=== PATIENT | female | born 1960 | race Caucasian/White ===

== ENCOUNTER 2023-03-12 10:40 | Inpatient (IN) | payer OTHER, SELFPAY ==
[2023-03-12] VITALS (7 sets, daily range): BP systolic 122–184; BP diastolic 73–117; PULSE 128–138; RESP 16–19; TEMP 36.3–36.7; O2SAT 96–98; BMI 52.0
--- NOTE | ~2023-03-12 | XR_ITS ---
EXAMINATION: XR CHEST CLINICAL INFORMATION: Shortness of breath COMPARISON: None available. TECHNIQUE: Frontal view of the chest was obtained. FINDINGS: Central vascular congestion with mild interstitial edema. No consolidation or effusion. Mildly enlarged cardiac silhouette. XR/XR chest 1V IMPRESSION: Probable mild CHF.
--- NOTE | ~2023-03-12 | CT_ITS ---
EXAMINATION: CT HEAD WITHOUT CONTRAST CLINICAL INFORMATION: Seizure COMPARISON: None available. TECHNIQUE: Contiguous axial imaging was performed from the skull base to vertex without intravenous administration of contrast. This CT examination was performed using dose optimization techniques as appropriate, variously including the following: *Automated exposure control *Adjustment of mA and/or kV according to patient size (this includes techniques or standardized protocols for targeted exams where dose is matched to indication/reason for exam; i.e. extremities or head) *Use of iterative reconstruction technique DLP: 657 mGy-cm FINDINGS: No evidence for acute bleed or mass effect. Ventricular system appears normal in size. No cisternal abnormalities seen. There is no intraventricular blood. [place]/white matter differentiation is maintained. There are hypodense changes in periventricular and subcortical white matter consistent with chronic small vessel ischemic disease. The mastoid air cells are well aerated. Skull base unremarkable. No calvarial disruption. CT/CT head/brain wo IV con IMPRESSION: 1. No evidence for acute bleed or mass effect. 2. Changes of chronic small vessel ischemic disease of white matter.
--- NOTE | 2023-03-12 10:45 | ED_ITS ---
HPI - General Adult General Chief complaint: General Medical Stated complaint: ? Seizure Time Seen by Provider: 03/12/23 10:45 Source: patient Mode of arrival: other Limitations: no limitations History of Present Illness HPI narrative: Patient is a 63-year-old female with history of hypertension, hyperlipidemia, ep ilepsy presenting to the emergency department with daughter, we were called to the front of the emergency department stating that a female was having a seizure however we got out there patient was not seizing, daughter states patient felt like she was going to have a seizure so she brought her into the emergency department, daughter and patient reports that since last night patient has been having severe substernal chest pain that intermittently radiates to her back and radiates to her left neck region, pain is severe, constant since yesterday this is never happened to her before. Also reporting some associated shortness of breath, fatigue, malaise and myalgias. Patient denies fevers, chills, nausea, vomiting, abdominal pain, headache, vision changes, dizziness or weakness. Patient is not on a blood thinner. Related Data Allergies Allergy/AdvReac Type Severity Reaction Status Date / Time morphine Allergy Unknown rash Verified 06/18/17 00:00 No Known Allergies Allergy Unverified 05/11/20 14:59 [No Known Allergies*] Motrin Allergy Unknown stomach Uncoded 06/18/17 00:00 upset Review of Systems Review of Systems: Constitutional : No Weight loss, No Fever, No Chills, + Fatigue, + Malaise ENT/Mouth : No sore throat, No Rhinorrhea Eyes: No Eye Pain, No Swelling, No Redness Cardiovascular : + Chest Pain, + SOB, + Dyspnea on Exertion, No Orthopnea, No Edema, + Palpitations Respiratory : No Cough, No Sputum, No Wheezing Gastrointestinal : No Nausea, No Vomiting, No Diarrhea, No Constipation, No abdominal Pain, No Hematochezia, No Melena Genitourinary : No Dysuria, No Urinary Frequency, No Hematuria, Musculoskeletal : No joint pain, No Myalgias, No Joint Swelling Skin : No Skin Lesions, No rash Neuro : No Weakness, No Numbness, No Dizziness, No Headache Psych : No Anxiety/Panic, No Depression All other systems reviewed and are negative Yes all other systems are reviewed and are negative PMFSH Past Medical History Attestation statement: The following information was validated with the patient. Source: old records reviewed and nursing notes reviewed Social History Social History Smoked in Last 30 Days: Yes Use of substances other than those prescribed or required for medical reasons: No Advance Directives: No Advance Directives Information Provided: No Physical Exam ED Vital Signs: Vital Signs - 24 hr 03/12/23 10:46 03/12/23 11:20 03/12/23 11:25 Temperature 97.4 F Pulse Rate 134 H Respiratory Rate 16 Blood Pressure 184/117 H 161/97 H 141/83 H Pulse Oximetry 97 Oxygen Delivery Method Room Air 03/12/23 13:08 Temperature Pulse Rate 128 H Respiratory Rate 18 Blood Pressure 122/73 Pulse Oximetry 98 Oxygen Delivery Method Room Air BMI result Body Mass Index 54.8 tachycardia, hypertension noted Appearance: Alert.? Oriented X3.? No acute distress.? Head: Normocephalic, atraumatic, no step-offs or deformities Eyes: Pupils equal, round and reactive to light.? Neck: Normal inspection.? Neck supple.? CVS: Rapid irregularly irregular rhythm with a heart rate fluctuating between 130s to 160s..? Pulses irregular bilaterally.? Respiratory: No respiratory distress.? Breath sounds normal.? Abdomen: Soft and nontender.? Skin: Skin warm and dry.? Normal skin color.? Normal skin turgor.? Extremities: No lower extremity edema.? No calf ttp. 5/5 strength to bilateral upper and lower extremities Back: No midline tenderness, no C-spine tenderness, full range of motion, no CVA tenderness bilaterally Neuro: Oriented X 3.? No motor deficit.? No sensory deficit. CN 2-12 intact Course Reevaluation(s) Reevaluation #1: Patient's CBC appears to be within normal limits. Chemistry unremarkable. Lactic acid normal. Troponin negative, BNP 221, no history of CHF however there is some suspicion patient could be developing CHF. Age adjusted D-dimer ne gative. UA clean without infection. Patient remains in AFib with a 2-1 conduction, Cardizem given, an additional dose of Cardizem ordered at this time. Toxicology negative. Salicylates acetaminophen negative. X-ray of chest and head CT pending. Time: 12:31 Reevaluation #2: CT of head with no evidence of acute bleed or mass effect. Changes of chronic small vessel ischemic disease of white matter, no signs of acute stroke at this time. Chest x-ray with probable mild CHF, Lasix ordered as patient's BNP is elevated to 21. Plan at this time is hospital admission. Hospitalist aware who accepts admission. Time: 13:37 Reevaluation #3: Spoke to Cardiology who recommends anticoagulants and 40 of IV Lasix which was already given. Will let hospitalist know. Time: 13:59 Medications Administered Discontinued Medications Generic Name Dose Route Start Last Admin Trade Name Freq PRN Reason Stop Dose Admin Diltiazem HCl 10 mg 03/12/23 11:01 03/12/23 11:17 Diltiazem Hcl 50 Mg/10 Ml Vial IVPUSH 03/12/23 11:02 10 mg STAT STA Administration Diltiazem HCl 10 mg 03/12/23 12:29 03/12/23 13:04 Diltiazem Hcl 50 Mg/10 Ml Vial IVPUSH 03/12/23 12:30 10 mg STAT STA Administration Medical Decision Making Medical Decision Making [facility] Narrative: 1115 63-year-old female presenting with fatigue, malaise, chest pain with radiation into left side of neck and intermittently into back, also reports that she feels like she is going to have a seizure. Physical exam significant for Rapid irregularly irregular rhythm with a heart rate fluctuating between 130s to 160s..? Pulses irregular bilaterally.? Concerns for new onset atrial fibrillation versus atrial flutter. Will rule out ACS. Patient's history and physical exam also slightly suspicious for dissection. Will rule out electrolyte abnormalities and urinary tract infection. No signs of seizure-like activity at this time. No signs of status epilepticus unlikely intracranial hemorrhage or stroke. Patient not postictal, no loss of control of urine or stool, no tongue trauma unlikely that patient had a seizure. Plan at this time labs, imaging, urine. Will obtain EKG and troponin and cardiac workup. Differential Diagnosis Differential Diagnoses: The differential diagnosis associated with the presentation includes Concerns for new onset atrial fibrillation versus atrial flutter. Will rule out ACS. Patient's history and physical exam also slightly suspicious for dissection. Will rule out electrolyte abnormalities and urinary tract infection. No signs of seizure-like activity at this time. No signs of status epilepticus unlikely intracranial hemorrhage or stroke. Patient not postictal, no loss of control of urine or stool, no tongue trauma unlikely that patient had a seizure. Admission/Observation Consideration of admission/observation: Escalation of care including admission/observation considered likely Consult Healthcare Provider Management of the patient was discussed with: Order Entry Clerk (attending ) Lab Data MDM Lab Attestation statement: I reviewed the patient's lab results. 03/12/23 11:09 03/12/23 11:09 Labs: Lab Results 03/12/23 03/12/23 03/12/23 Range/Units 11:09 11:09 11:09 WBC 5.5 (4.8-10.8) X10*3/uL RBC 4.08 L (4.20-5.50) X10*6/uL Hgb 12.6 (12.0-16.0) g/dl Hct 39.3 (37.0-47.0) % MCV 96.3 (80.0-98.0) fL MCH 30.9 (27.0-33.0) pg MCHC 32.1 (31.0-35.0) g/dl RDW 14.6 (11.0-16.0) % Plt Count 142 L (160-400) X10*3/uL MPV 11.0 (9.4-12.3) fL Immature Gran % (Auto) 0.2 (0.0-0.4) % Neut % (Auto) 59.5 (45-73) % Lymph % (Auto) 29.8 (20-40) % Teller % (Auto) 8.5 (2-11) % Eos % (Auto) 1.5 (0-4) % Baso % (Auto) 0.5 (0-2) % Lymph # (Auto) 1.6 (1.2-4.9) X10*3/uL Teller # (Auto) 0.5 (0.1-1.2) X10*3/uL Eos # (Auto) 0.1 (0.0-0.4) X10*3/uL Baso # (Auto) 0.0 (0.0-0.2) X10*3/uL Abs Immat Gran (auto) 0.01 (0.00-0.03) X10*3/uL Absolute Neuts (auto) 3.3 (2.0-8.3) x10*3/uL Absolute Nucleated RBC 0.000 (0.0-0.012) X10*3/uL Nucleated RBC % (auto) 0.0 (0.0-0.2) /100WBC PT 10.7 (10.0-13.1) SEC INR 0.9 (0.9-1.1) D-Dimer High Sensitivty 261 NG/ML Sodium 144 (135-145) mmol/L Potassium 4.0 (3.3-5.1) mmol/L Chloride 110 H (96-108) mmol/L Carbon Dioxide 27 (22-29) mmol/L Anion Gap 11 L (12-20) BUN 11 (9-16) mg/dL Creatinine 0.73 (0.5-1.4) mg/dL Estim Creat Clear Calc 101.2 Estimated GFR > 60 Random Glucose 127 H (60-115) mg/dL Lactic Acid (0.5-2.0) mmol/L Calcium 8.5 (8.4-10.2) mg/dL Magnesium 2.0 (1.6-2.6) mg/dL Total Bilirubin 0.6 (0.0-1.0) mg/dL AST 15 (5-31) U/L ALT 11 (0-31) U/L Alkaline Phosphatase 187 H (39-117) U/L Total Creatine Kinase 61 (26-140) U/L Troponin I High Sens (<3.5-17.0) ng/L B-Natriuretic Peptide (<100) pg/mL Total Protein 6.9 (6.5-8.0) g/dL Albumin 3.7 (3.5-5.0) g/dL Lipase 11 (8-78) U/L Urine Color Urine Appearance Urine pH (5.0-9.0) Ur Specific Lannon (1.005-1.025) Urine Protein (Neg-Trace) mg/dL Urine Glucose (UA) (Negative) mg/dL Urine Ketones (Negative) mg/dL Urine Blood (Negative) Urine Nitrite (Negative) Ur Leukocyte Esterase (Negative) Salicylates (15-30) mg/dL Urine Opiates Screen (Not Detect) Urine Fentanyl Screen (Not Detect) Acetaminophen (<30) mcg/mL Ur Barbiturates Screen (Not Detect) Ur Phencyclidine Scrn (Not Detect) Ur Amphetamines Screen (Not Detect) U Benzodiazepines Scrn (Not Detect) Urine Cocaine Screen (Not Detect) U Marijuana (THC) Screen (Not Detect) Ethyl Alcohol < 10 mg/dL COVID-19 (ARLINE) (Negative) COVID-19 Clin Com 03/12/23 03/12/23 03/12/23 Range/Units 11:09 11:09 11:09 WBC (4.8-10.8) X10*3/uL RBC (4.20-5.50) X10*6/uL Hgb (12.0-16.0) g/dl Hct (37.0-47.0) % MCV (80.0-98.0) fL MCH (27.0-33.0) pg MCHC (31.0-35.0) g/dl RDW (11.0-16.0) % Plt Count (160-400) X10*3/uL MPV (9.4-12.3) fL Immature Gran % (Auto) (0.0-0.4) % Neut % (Auto) (45-73) % Lymph % (Auto) (20-40) % Teller % (Auto) (2-11) % Eos % (Auto) (0-4) % Baso % (Auto) (0-2) % Lymph # (Auto) (1.2-4.9) X10*3/uL Teller # (Auto) (0.1-1.2) X10*3/uL Eos # (Auto) (0.0-0.4) X10*3/uL Baso # (Auto) (0.0-0.2) X10*3/uL Abs Immat Gran (auto) (0.00-0.03) X10*3/uL Absolute Neuts (auto) (2.0-8.3) x10*3/uL Absolute Nucleated RBC (0.0-0.012) X10*3/uL Nucleated RBC % (auto) (0.0-0.2) /100WBC PT (10.0-13.1) SEC INR (0.9-1.1) D-Dimer High Sensitivty NG/ML Sodium (135-145) mmol/L Potassium (3.3-5.1) mmol/L Chloride (96-108) mmol/L Carbon Dioxide (22-29) mmol/L Anion Gap (12-20) BUN (9-16) mg/dL Creatinine (0.5-1.4) mg/dL Estim Creat Clear Calc Estimated GFR Random Glucose (60-115) mg/dL Lactic Acid (0.5-2.0) mmol/L Calcium (8.4-10.2) mg/dL Magnesium (1.6-2.6) mg/dL Total Bilirubin (0.0-1.0) mg/dL AST (5-31) U/L ALT (0-31) U/L Alkaline Phosphatase (39-117) U/L Total Creatine Kinase (26-140) U/L Troponin I High Sens 3.4 (<3.5-17.0) ng/L B-Natriuretic Peptide 221 H (<100) pg/mL Total Protein (6.5-8.0) g/dL Albumin (3.5-5.0) g/dL Lipase (8-78) U/L Urine Color Urine Appearance Urine pH (5.0-9.0) Ur Specific Lannon (1.005-1.025) Urine Protein (Neg-Trace) mg/dL Urine Glucose (UA) (Negative) mg/dL Urine Ketones (Negative) mg/dL Urine Blood (Negative) Urine Nitrite (Negative) Ur Leukocyte Esterase (Negative) Salicylates < 5.0 L (15-30) mg/dL Urine Opiates Screen (Not Detect) Urine Fentanyl Screen (Not Detect) Acetaminophen < 17 (<30) mcg/mL Ur Barbiturates Screen (Not Detect) Ur Phencyclidine Scrn (Not Detect) Ur Amphetamines Screen (Not Detect) U Benzodiazepines Scrn (Not Detect) Urine Cocaine Screen (Not Detect) U Marijuana (THC) Screen (Not Detect) Ethyl Alcohol mg/dL COVID-19 (ARLINE) (Negative) COVID-19 Clin Com 03/12/23 03/12/23 03/12/23 Range/Units 11:10 11:10 11:35 WBC (4.8-10.8) X10*3/uL RBC (4.20-5.50) X10*6/uL Hgb (12.0-16.0) g/dl Hct (37.0-47.0) % MCV (80.0-98.0) fL MCH (27.0-33.0) pg MCHC (31.0-35.0) g/dl RDW (11.0-16.0) % Plt Count (160-400) X10*3/uL MPV (9.4-12.3) fL Immature Gran % (Auto) (0.0-0.4) % Neut % (Auto) (45-73) % Lymph % (Auto) (20-40) % Teller % (Auto) (2-11) % Eos % (Auto) (0-4) % Baso % (Auto) (0-2) % Lymph # (Auto) (1.2-4.9) X10*3/uL Teller # (Auto) (0.1-1.2) X10*3/uL Eos # (Auto) (0.0-0.4) X10*3/uL Baso # (Auto) (0.0-0.2) X10*3/uL Abs Immat Gran (auto) (0.00-0.03) X10*3/uL Absolute Neuts (auto) (2.0-8.3) x10*3/uL Absolute Nucleated RBC (0.0-0.012) X10*3/uL Nucleated RBC % (auto) (0.0-0.2) /100WBC PT (10.0-13.1) SEC INR (0.9-1.1) D-Dimer High Sensitivty NG/ML Sodium (135-145) mmol/L Potassium (3.3-5.1) mmol/L Chloride (96-108) mmol/L Carbon Dioxide (22-29) mmol/L Anion Gap (12-20) BUN (9-16) mg/dL Creatinine (0.5-1.4) mg/dL Estim Creat Clear Calc Estimated GFR Random Glucose (60-115) mg/dL Lactic Acid 1.2 (0.5-2.0) mmol/L Calcium (8.4-10.2) mg/dL Magnesium (1.6-2.6) mg/dL Total Bilirubin (0.0-1.0) mg/dL AST (5-31) U/L ALT (0-31) U/L Alkaline Phosphatase (39-117) U/L Total Creatine Kinase (26-140) U/L Troponin I High Sens (<3.5-17.0) ng/L B-Natriuretic Peptide (<100) pg/mL Total Protein (6.5-8.0) g/dL Albumin (3.5-5.0) g/dL Lipase (8-78) U/L Urine Color Yellow Urine Appearance Clear Urine pH 7.0 (5.0-9.0) Ur Specific Lannon <= 1.005 (1.005-1.025) Urine Protein Negative (Neg-Trace) mg/dL Urine Glucose (UA) Negative (Negative) mg/dL Urine Ketones Negative (Negative) mg/dL Urine Blood Negative (Negative) Urine Nitrite Negative (Negative) Ur Leukocyte Esterase Negative (Negative) Salicylates (15-30) mg/dL Urine Opiates Screen (Not Detect) Urine Fentanyl Screen (Not Detect) Acetaminophen (<30) mcg/mL Ur Barbiturates Screen (Not Detect) Ur Phencyclidine Scrn (Not Detect) Ur Amphetamines Screen (Not Detect) U Benzodiazepines Scrn (Not Detect) Urine Cocaine Screen (Not Detect) U Marijuana (THC) Screen (Not Detect) Ethyl Alcohol mg/dL COVID-19 (ARLINE) Negative (Negative) COVID-19 Clin Com See Note 03/12/23 Range/Units 11:35 WBC (4.8-10.8) X10*3/uL RBC (4.20-5.50) X10*6/uL Hgb (12.0-16.0) g/dl Hct (37.0-47.0) % MCV (80.0-98.0) fL MCH (27.0-33.0) pg MCHC (31.0-35.0) g/dl RDW (11.0-16.0) % Plt Count (160-400) X10*3/uL MPV (9.4-12.3) fL Immature Gran % (Auto) (0.0-0.4) % Neut % (Auto) (45-73) % Lymph % (Auto) (20-40) % Teller % (Auto) (2-11) % Eos % (Auto) (0-4) % Baso % (Auto) (0-2) % Lymph # (Auto) (1.2-4.9) X10*3/uL Teller # (Auto) (0.1-1.2) X10*3/uL Eos # (Auto) (0.0-0.4) X10*3/uL Baso # (Auto) (0.0-0.2) X10*3/uL Abs Immat Gran (auto) (0.00-0.03) X10*3/uL Absolute Neuts (auto) (2.0-8.3) x10*3/uL Absolute Nucleated RBC (0.0-0.012) X10*3/uL Nucleated RBC % (auto) (0.0-0.2) /100WBC PT (10.0-13.1) SEC INR (0.9-1.1) D-Dimer High Sensitivty NG/ML Sodium (135-145) mmol/L Potassium (3.3-5.1) mmol/L Chloride (96-108) mmol/L Carbon Dioxide (22-29) mmol/L Anion Gap (12-20) BUN (9-16) mg/dL Creatinine (0.5-1.4) mg/dL Estim Creat Clear Calc Estimated GFR Random Glucose (60-115) mg/dL Lactic Acid (0.5-2.0) mmol/L Calcium (8.4-10.2) mg/dL Magnesium (1.6-2.6) mg/dL Total Bilirubin (0.0-1.0) mg/dL AST (5-31) U/L ALT (0-31) U/L Alkaline Phosphatase (39-117) U/L Total Creatine Kinase (26-140) U/L Troponin I High Sens (<3.5-17.0) ng/L B-Natriuretic Peptide (<100) pg/mL Total Protein (6.5-8.0) g/dL Albumin (3.5-5.0) g/dL Lipase (8-78) U/L Urine Color Urine Appearance Urine pH (5.0-9.0) Ur Specific Lannon (1.005-1.025) Urine Protein (Neg-Trace) mg/dL Urine Glucose (UA) (Negative) mg/dL Urine Ketones (Negative) mg/dL Urine Blood (Negative) Urine Nitrite (Negative) Ur Leukocyte Esterase (Negative) Salicylates (15-30) mg/dL Urine Opiates Screen Not Detected (Not Detect) Urine Fentanyl Screen Not Detected (Not Detect) Acetaminophen (<30) mcg/mL Ur Barbiturates Screen Not Detected (Not Detect) Ur Phencyclidine Scrn Not Detected (Not Detect) Ur Amphetamines Screen Not Detected (Not Detect) U Benzodiazepines Scrn Not Detected (Not Detect) Urine Cocaine Screen Not Detected (Not Detect) U Marijuana (THC) Screen Not Detected (Not Detect) Ethyl Alcohol mg/dL COVID-19 (ARLINE) (Negative) COVID-19 Clin Com Independent Interpretation I performed an independent interpretation of an: EKG (EKG with a ventricular rate of 134, showing atrial flutter with a 2-1 AV conduction, WA variable, QRS normal, QT/QTC normal. No signs of acute ischemia at this time ), Plain X-Ray and CT Scan Radiology Impression Discussion of test interpretation with radiology: I have reviewed the radiologist's reading. Chronic Conditions Patient?s care impacted by: Diabetes and Hypertension Core Measures AMI core measures followed: Yes Measure exclusions: not indicated Critical Care Time Critical Care Time Critical Care Time: Yes Total Critical Care Time: 45 Attestation: I attest to this time spent taking care of the patient, obtaining history, physical, reviewing labs, imaging, speaking to my attending Discharge Plan Discharge Clinical Impression: Atrial flutter, CHF (congestive heart failure) Patient Disposition: Admitted As Inpatient
--- NOTE | 2023-03-12 10:47 | ECG_ITS ---
Test Reason : cp Blood Pressure : / mmHG Vent. Rate : 134 BPM Atrial Rate : 268 BPM P-R Int : 000 ms QRS Dur : 082 ms QT Int : 372 ms P-R-T Axes : 240 069 -80 degrees QTc Int : 555 ms Atrial flutter with 2:1 A-V conduction Nonspecific ST abnormality Abnormal ECG When compared with ECG of 25-JUN-2017 10:09, Atrial flutter has replaced Sinus rhythm Vent. rate has increased BY [address] now depressed in Inferior leads ST now depressed in ; T wave inversion now evident in Inferior leads T wave inversion now evident in Anterior leads Referred By: Ulisses Martinez Electronically Signed By:Nathaniel Peña
[2023-03-12 11:17] LABS: Hematocrit 39.3 % (37.0-47.0); Hemoglobin 12.6 g/dl (12.0-16.0); MANUAL DIFF FLAG NO; Mean Corpuscular HGB Conc 32.1 g/dl (31.0-35.0); PLT CLUMP 1; Red Cell Distribution Width 14.6 % (11.0-16.0); SCAN SMEAR FLAG 1
[2023-03-12] MEDS: dilTIAZem HCL 50 MG/10 ML VIAL 10 MG IVPUSH ×2 (11:17→13:04)
[2023-03-12 11:18] LABS: Basophils Percent Auto 0.5 % (0-2); Eosinophils Absolute Auto 0.1 X10*3/uL (0.0-0.4); Eosinophils Percent Auto 1.5 % (0-4); Imm Gran Abs Auto 0.01 X10*3/uL (0.00-0.03); Imm Gran Pct Auto 0.2 % (0.0-0.4); Lymphocytes Absolute Auto 1.6 X10*3/uL (1.2-4.9); Lymphocytes Percent Auto 29.8 % (20-40); Mean Corpuscular Hemoglobin 30.9 pg (27.0-33.0); Mean Corpuscular Volume 96.3 fL (80.0-98.0); Monocytes Absolute Auto 0.5 X10*3/uL (0.1-1.2); Monocytes Percent Auto 8.5 % (2-11); Neutrophils Absolute Auto 3.3 x10*3/uL (2.0-8.3); Neutrophils Percent Auto 59.5 % (45-73); Platelet Count 142 X10*3/uL (160-400); Red Blood Count 4.08 X10*6/uL (4.20-5.50); White Blood Count 5.5 X10*3/uL (4.8-10.8)
[2023-03-12 11:21] LABS: INTERNATIONAL NORM RATIO 0.9 (0.9-1.1); Prothrombin Time 10.7 SEC (10.0-13.1)
[2023-03-12 11:23] LABS: D Dimer High Sensitivity 261 NG/ML
[2023-03-12 11:26] LABS: Lactic Acid 1.2 mmol/L (0.5-2.0)
[2023-03-12 11:30] LABS: COVID-19 Test Negative (Negative); IDNOW Serial# BCCEAD1C
[2023-03-12 11:32] LABS: Acetaminophen LAB < 17 mcg/mL (<30); Salicylate < 5.0 mg/dL (15-30)
[2023-03-12 11:34] LABS: Alanine Aminotransferase 11 U/L (0-31); Albumin Level 3.7 g/dL (3.5-5.0); Alkaline Phosphatase 187 U/L (39-117); Anion Gap 11 (12-20); Aspartate Amino Transferase 15 U/L (5-31); Bilirubin Total 0.6 mg/dL (0.0-1.0); Blood Urea Nitrogen 11 mg/dL (9-16); Calcium 8.5 mg/dL (8.4-10.2); Carbon Dioxide 27 mmol/L (22-29); Chloride 110 mmol/L (96-108); Creatinine Clr Calc Pharmacy 101.2; Estimated Glomerular Filt Rate > 60; Ethanol < 10 mg/dL; Glucose Random 127 mg/dL (60-115); Lipase 11 U/L (8-78); Sodium 144 mmol/L (135-145); Total Protein 6.9 g/dL (6.5-8.0)
[2023-03-12 11:36] LABS: B Type Natriuretic Peptide 221 pg/mL (<100)
[2023-03-12 11:39] LABS: Troponin-I High Sensitivity 3.4 ng/L (<3.5-17.0)
[2023-03-12 11:43] LABS: Appearance Urine Clear; Color Urine Yellow; Glucose Urine UA Negative (Negative); Leukocyte Esterase Urine Negative (Negative); Nitrite Urine Negative (Negative); Specific Gravity - Urine <= 1.005 (1.005-1.025); Urine Blood Negative (Negative); Urine Ketones Negative (Negative); Urine Protein Negative (Neg-Trace)
[2023-03-12 12:08] LABS: Amphetamine Screen Urine Not Detected (Not Detect); Barbiturates, Urine Not Detected (Not Detect); Benzodiazepines Screen Urine Not Detected (Not Detect); Cannabinoid Screen Urine Not Detected (Not Detect); Cocaine Screen Urine Not Detected (Not Detect); Fentanyl, urine Not Detected (Not Detect); Opiate Screen Urine Not Detected (Not Detect); Phencyclidine Screen Urine Not Detected (Not Detect)
[2023-03-12] MEDS: Furosemide 40 MG/4 ML VIAL IVPUSH (14:29)
[2023-03-12] MEDS: dilTIAZem HCL 125 MG in 0.9 % Sodium Chloride 100 ML 10 MG IVCONT (14:55)
--- NOTE | 2023-03-12 15:14 | PHA.MEDREC ---
Pharmacy Consult ? Medication Reconciliation Pharmacy has completed the medication reconciliation. Spoke to patient and patients daughter, both were poor historians. Patient told me she [place] pharmacy [facility] [place]. Called pharmacy and they said they have no filled anything for her in 7 months. Only recent medications was from November, which was omeprazole. I then called patients doctors office ([phone], MD Gloria Leary), they told me that they have not even spoken to this patient since october of 2021 and have not sent any scripts/refills since then. I suspect complete non compliance. Passed off to evening [facility] and made provider aware.
--- NOTE | 2023-03-12 15:17 | P.HPHOSP_ITS ---
History of Present Illness Date of Service: 03/12/23 Attending physician on admission: [facility] Chief Complaint: anxiety, chest pain 63-year-old female with history of GERD, gastritis, history of CVA, asthma, insomnia, epilepsy, who is a current 1 pack per day smoker presents to the ED with her daughter with whom she lives for evaluation of chest pain that started last night. The patient recently moved in with her daughter about 3 months ago from [place] and medical history provided by patient and daughter seems uncertain and she has not had any of her medications in the last 3 months. technology training associate is used during exam. Per the patient, she developed retrosternal chest pressure radiating to the left side of the neck and through to the back last night. Pain has been constant with associated shortness of breath, fatigue, malaise, and orthopnea but she states the orthopnea is not new. She does also endorse longstanding lower extremity edema. She has also been experiencing anxiety and when brought to the ED while still in the car this morning felt like she was going to have a seizure but did not actually have any seizure episode. On arrival, heart rate elevated into the 160s, hypertensive to 184/117. EKG showed atrial flutter with 2-1 AV conduction, rate [address] abnormality in inferior and anterior leads. There is no leukocytosis. Renal function normal, electrolyte levels normal. Lactic acid 1.2. Total CK 61. Troponin 3.4. BNP 221. D-dimer 261, appropriate based on age. Urinalysis unremarkable. U tox negative, ethyl alcohol level negative. Negative for COVID-19. CT of the head negative for any acute intracranial abnormality. Chest x-ray with mild bilateral pulmonary edema, no pleural effusions. In the ED, given 10 mg IV push Cardizem x2 without improvement and patient started on Cardizem drip. She was also given 40 mg IV Lasix. At this time pt reports she is still experiencing mild retrosternal chest pain and lightheadedness but denies any radiation or shortness of breath. No diaphoresis. Review of Systems Review of Systems: General: No fevers, malaise, unintentional weight loss. +malaise, +fatigue HEENT: No blurred vision, diplopia. No sore throat, nasal congestion, rhinorrhea, sinus pain, ear pain Cardiovascular: +palpitations, No chest pain, palpitations, or leg edema Respiratory: +sob, +orthopnea. No wheezing, cough GI: No abdominal pain, nausea, vomiting, diarrhea, constipation, melena, hemato chezia : No dysuria, hematuria, increased urinary frequency, decreased urinary output MSK: No myalgia, back pain Neuro: No headaches, weakness, paresthesias. + lightheaded Skin: No rashes or lesions [facility] Medical History Gastritis GERD (gastroesophageal reflux disease) History of stroke Morbid obesity Nicotine dependence Seizure disorder Social History Household Members: Family Housing: Apartment Patient Tobacco Use Status: Current everyday Tobacco user Tobacco use type: Cigarette Cigarette Packs Per Day: 0.5 Cigarettes Per Day: 10.0 Smoked in Last 30 Days: Yes Patient Interested in Nicotine Replacement: Yes Use of substances other than those prescribed or required for medical reasons: No Currently Displaying Signs/Symptoms of Drug Intoxication Withdrawal: No Have you been hit, kicked, punched, or otherwise hurt by someone within the past year? If so, by whom?: No Do you feel safe in your current relationship?: No Current Relationship Is there a partner from a previous relationship who is making you feel unsafe no w?: No Are you made to feel afraid or neglected: No Advance Directives: No Advance Directives Information Provided: No Do you have thoughts of harming others: None Do you have a plan to hurt others: No Plan Recently lost weight without trying: No Nutrition Risks: No Nutritional Risk Patient : No : No Poor oral hygiene: No Meds Allergies Allergy/AdvReac Type Severity Reaction Status Date / Time morphine Allergy Unknown rash Verified 06/18/17 00:00 No Known Allergies Allergy Unverified 05/11/20 14:59 [No Known Allergies*] Motrin Allergy Unknown stomach Uncoded 06/18/17 00:00 upset Active Medications: Current Medications Acetaminophen (Acetaminophen 325 Mg Tablet) 650 mg PO Q6H PRN PRN Reason: Pain, Mild (Pain Scale 1-3) Docusate Sodium (Docusate Sodium 100 Mg Capsule) 100 mg PO DAILY PRN PRN Reason: Constipation Heparin Sodium (Porcine) (Heparin Sodium,Porcine 5,000 Unit/Ml Vial) 4,000 unit IVPUSH ONCE ONE Stop: 03/12/23 15:08 Diltiazem HCl 125 mg/ Sodium (Chloride) 125 mls @ 0 mls/hr IVCONT .Q0M [facility]; Protocol Last Admin: 03/12/23 14:55 Dose: 10 mg/hr, 10 mls/hr Ondansetron HCl (Ondansetron Hcl 4 Mg/2 Ml Vial) 4 mg IVPUSH Q8H PRN PRN Reason: Nausea and Vomiting Pharmacy Consult (Consult Rx Perform Med Rec) 1 each MISCELLANE ONCE PRN PRN Reason: Consult order Sodium Chloride (0.9 % Sodium Chloride Flush 3 Ml Syringe) 3 ml IVFLUSH QSHIFT [facility] Home Medications Medication Instructions Recorded Confirmed Last Taken Type albuterol sulfate 90 mcg/actuation 2 puff inhalation Q6H PRN 03/12/23 03/12/23 Unknown History aerosol inhaler (ProAir HFA) Shortness Of Breath omeprazole 20 mg capsule,delayed 20 mg PO DAILY 03/12/23 03/12/23 Unknown History release phenytoin sodium extended 100 mg 100 mg PO TID 03/12/23 03/12/23 Unknown History capsule (Dilantin Extended) propranolol 120 mg capsule,24 120 mg PO DAILY 03/12/23 03/12/23 Unknown History hr,extended release quetiapine 100 mg tablet 100 mg PO DAILY 03/12/23 03/12/23 Unknown History topiramate 50 mg tablet 50 mg PO DAILY 03/12/23 03/12/23 Unknown History Physical Exam Vital Signs and Narrative: Vital Signs: Last Vital Signs Temp 97.4 F 03/12/23 10:46 Pulse 133 H 03/12/23 14:00 Resp 17 03/12/23 14:00 BP 155/94 H 03/12/23 14:00 Pulse Ox 96 03/12/23 14:00 O2 Del Method Room Air 03/12/23 14:00 BMI result Body Mass Index 54.8 Constitutional - Awake and Alert, No apparent distress Eyes - PERRLA, EOMI Cardiovascular - S1S2, RRR, 1+ ble edema Respiratory - Normal lung expansion, Normal respiratory effort, No respiratory distress,orthopnea, bibasilar crackles Gastrointestinal - NT / ND; +BS; No rebound or guarding Extremities - no calf tenderness bilaterally, no swelling Musculoskeletal - Normal inspection, normal ROM Skin - Warm/Dry Neurological - Alert & oriented x3 Results Labs 03/12/23 11:09 03/12/23 11:09 Labs: Laboratory Results - last 24 hr 03/12/23 03/12/23 03/12/23 11:09 11:09 11:09 MCV 96.3 MCH 30.9 MCHC 32.1 RDW 14.6 Plt Count 142 L MPV 11.0 Immature Gran % (Auto) 0.2 Neut % (Auto) 59.5 Lymph % (Auto) 29.8 [place] % (Auto) 8.5 Eos % (Auto) 1.5 Baso % (Auto) 0.5 Lymph # (Auto) 1.6 [place] # (Auto) 0.5 Eos # (Auto) 0.1 Baso # (Auto) 0.0 Abs Immat Gran (auto) 0.01 Absolute Neuts (auto) 3.3 Absolute Nucleated RBC 0.000 Nucleated RBC % (auto) 0.0 PT 10.7 INR 0.9 D-Dimer High Sensitivty 261 Anion Gap 11 L Estim Creat Clear Calc 101.2 Estimated GFR > 60 Random Glucose 127 H Lactic Acid Calcium 8.5 Magnesium 2.0 Total Bilirubin 0.6 AST 15 ALT 11 Alkaline Phosphatase 187 H Total Creatine Kinase 61 Troponin I High Sens B-Natriuretic Peptide Total Protein 6.9 Albumin 3.7 Lipase 11 Urine Color Urine Appearance Urine pH Ur Specific [place] Urine Protein Urine Glucose (UA) Urine Ketones Urine Blood Urine Nitrite Ur Leukocyte Esterase Salicylates Urine Opiates Screen Urine Fentanyl Screen Acetaminophen Ur Barbiturates Screen Ur Phencyclidine Scrn Ur Amphetamines Screen U Benzodiazepines Scrn Urine Cocaine Screen U Marijuana (THC) Screen Ethyl Alcohol < 10 COVID-19 (ARLINE) COVID-19 Clin Com 03/12/23 03/12/23 03/12/23 11:09 11:09 11:09 MCV MCH MCHC RDW Plt Count MPV Immature Gran % (Auto) Neut % (Auto) Lymph % (Auto) [place] % (Auto) Eos % (Auto) Baso % (Auto) Lymph # (Auto) [place] # (Auto) Eos # (Auto) Baso # (Auto) Abs Immat Gran (auto) Absolute Neuts (auto) Absolute Nucleated RBC Nucleated RBC % (auto) PT INR D-Dimer High Sensitivty Anion Gap Estim Creat Clear Calc Estimated GFR Random Glucose Lactic Acid Calcium Magnesium Total Bilirubin AST ALT Alkaline Phosphatase Total Creatine Kinase Troponin I High Sens 3.4 B-Natriuretic Peptide 221 H Total Protein Albumin Lipase Urine Color Urine Appearance Urine pH Ur Specific [place] Urine Protein Urine Glucose (UA) Urine Ketones Urine Blood Urine Nitrite Ur Leukocyte Esterase Salicylates < 5.0 L Urine Opiates Screen Urine Fentanyl Screen Acetaminophen < 17 Ur Barbiturates Screen Ur Phencyclidine Scrn Ur Amphetamines Screen U Benzodiazepines Scrn Urine Cocaine Screen U Marijuana (THC) Screen Ethyl Alcohol COVID-19 (ARLINE) COVID-19 efectivox Com 03/12/23 03/12/23 03/12/23 11:10 11:10 11:35 MCV MCH MCHC RDW Plt Count MPV Immature Gran % (Auto) Neut % (Auto) Lymph % (Auto) [place] % (Auto) Eos % (Auto) Baso % (Auto) Lymph # (Auto) [place] # (Auto) Eos # (Auto) Baso # (Auto) Abs Immat Gran (auto) Absolute Neuts (auto) Absolute Nucleated RBC Nucleated RBC % (auto) PT INR D-Dimer High Sensitivty Anion Gap Estim Creat Clear Calc Estimated GFR Random Glucose Lactic Acid 1.2 Calcium Magnesium Total Bilirubin AST ALT Alkaline Phosphatase Total Creatine Kinase Troponin I High Sens B-Natriuretic Peptide Total Protein Albumin Lipase Urine Color Yellow Urine Appearance Clear Urine pH 7.0 Ur Specific [place] <= 1.005 Urine Protein Negative Urine Glucose (UA) Negative Urine Ketones Negative Urine Blood Negative Urine Nitrite Negative Ur Leukocyte Esterase Negative Salicylates Urine Opiates Screen Urine Fentanyl Screen Acetaminophen Ur Barbiturates Screen Ur Phencyclidine Scrn Ur Amphetamines Screen U Benzodiazepines Scrn Urine Cocaine Screen U Marijuana (THC) Screen Ethyl Alcohol COVID-19 (ARLINE) Negative COVID-19 efectivox Com See Note 03/12/23 11:35 MCV MCH MCHC RDW Plt Count MPV Immature Gran % (Auto) Neut % (Auto) Lymph % (Auto) [place] % (Auto) Eos % (Auto) Baso % (Auto) Lymph # (Auto) [place] # (Auto) Eos # (Auto) Baso # (Auto) Abs Immat Gran (auto) Absolute Neuts (auto) Absolute Nucleated RBC Nucleated RBC % (auto) PT INR D-Dimer High Sensitivty Anion Gap Estim Creat Clear Calc Estimated GFR Random Glucose Lactic Acid Calcium Magnesium Total Bilirubin AST ALT Alkaline Phosphatase Total Creatine Kinase Troponin I High Sens B-Natriuretic Peptide Total Protein Albumin Lipase Urine Color Urine Appearance Urine pH Ur Specific [place] Urine Protein Urine Glucose (UA) Urine Ketones Urine Blood Urine Nitrite Ur Leukocyte Esterase Salicylates Urine Opiates Screen Not Detected Urine Fentanyl Screen Not Detected Acetaminophen Ur Barbiturates Screen Not Detected Ur Phencyclidine Scrn Not Detected Ur Amphetamines Screen Not Detected U Benzodiazepines Scrn Not Detected Urine Cocaine Screen Not Detected U Marijuana (THC) Screen Not Detected Ethyl Alcohol COVID-19 (ARLINE) COVID-19 Clin Com Imaging Radiologist's Impressions: Impressions Chest X-Ray 03/12/23 11:19 IMPRESSION: Probable mild CHF. Head CT 03/12/23 12:01 IMPRESSION: 1. No evidence for acute bleed or mass effect. 2. Changes of chronic small vessel ischemic disease of white matter. Assessment and Plan (1) Atrial flutter: Status: Acute (2) CHF (congestive heart failure): Status: Acute (3) Chest pain: Status: Acute Plan 63-year-old female with history of GERD, gastritis, history of CVA, asthma, insomnia, epilepsy, who is a current 1 pack per day smoker admitted for new ons et atrial flutter and congestive heart failure. # new onset atrial flutter with RVR -continue Cardizem drip -[id number] score 5 (denies htn, but hypertensive since arrival)- initiate heparin per cardiology -Echo ordered -TSH pending, lytes normal -cardiac diet -cardiology consult -monitor on telemetry # new onset congestive heart failure -likely secondary to atrial flutter -given 40 mg IV Lasix in the ED, hold on further IV Lasix -strict I&O -cardiac diet -echo ordered -cardiology consult # typical chest pain -unclear if related to atrial flutter with RVR versus unstable angina -troponin within normal limits -EKG with nonspecific ST/T-wave abnormalities in anterior and inferior leads -initiate heparin per protocol per Cardiology -cardiology consult # GERD/gastritis -continue omeprazole # mild intermittent asthma -no acute exacerbation -albuterol p.r.n. # epilepsy -has not taken anti-epileptics in 3 months due to move to [place] without seizure activity -Resume phenytoin 100mg TID and topamax # cigarette smoker -smokes 1 pack cigarettes daily -patches for NRT -smoking cessation counseling DVT prophylaxis- on heparin Full code Patient requires inpatient stay at least 2 midnights for management of new onset atrial flutter with RVR and new onset congestive heart failure currently on Cardizem drip requiring close cardiac monitoring and monitoring of renal function electrolyte levels with expert consultation Time Spent With Patient Time: Total time managing care of this patient today ____ minutes. Quality Stroke Does the patient have a stroke diagnosis?: No VTE Prior VTE?: No VTE Risk Level:: Medical - moderate - high VTE Device Contraindication: Treatment Not Indicated VTE Drug Contraindication: N/A - Med Ordered
[2023-03-12 16:06] LABS: TSH reflex Free T4 1.16 uIU/mL (0.32-4.0)
--- NOTE | 2023-03-12 17:00 | HE.PHANOTE ---
Spoke to pt's daughter, Leyla who was able to give a med list, daughter states that pt has not taken her seizure meds for roughly 2 months. She has also been unable to taker her others meds for over a month
--- NOTE | 2023-03-12 18:02 | PC.NURSE ---
pt a&o x4, pleasant, calm, and cooperative. burmese speaking only. IV placed to RAC, labs drawn, UA sent, EKG obtained. pt placed on monitor and medicated per oct. commode at bedside.
[2023-03-12] MEDS: Nicotine 21 MG PATCH.TD24 TRANSDERMA (18:24)
--- NOTE | 2023-03-12 19:15 | PC.NURSE ---
report recieved from ED RN at 1820, pt up to floor at 1850. Cardizem gtt running per OCT. Pt settled in room, assisted to BSC with 1 assist. Pt RAZO. Call castillo within reach, safety precautions maintained. Handoff report given to evening RN.
[2023-03-12] MEDS: Digoxin 0.5 MG/2 ML AMPUL 0.25 MG IVPUSH (19:54)
[2023-03-12 20:12] LABS: Hematocrit 40.5 % (37.0-47.0); Hemoglobin 13.1 g/dl (12.0-16.0); Mean Corpuscular HGB Conc 32.3 g/dl (31.0-35.0); Mean Corpuscular Hemoglobin 31.5 pg (27.0-33.0); Mean Corpuscular Volume 97.4 fL (80.0-98.0); Mean Platelet Volume 11.1 fL (9.4-12.3); Platelet Count 144 X10*3/uL (160-400); Red Blood Count 4.16 X10*6/uL (4.20-5.50); Red Cell Distribution Width 14.7 % (11.0-16.0); White Blood Count 7.8 X10*3/uL (4.8-10.8)
[2023-03-12 20:20] LABS: Prothrombin Time 11.1 SEC (10.0-13.1)
[2023-03-12 20:23] LABS: PTT Heparin Drip 31.9 SEC (53-77.9)
[2023-03-12] MEDS: Heparin Sodium,Porcine/1/2NS 25,000 UNIT/250 ML IV.SOLN 17.49 UNIT IVCONT (20:30)
[2023-03-12] MEDS: QUEtiapine Fumarate 100 MG TABLET PO (20:51)
[2023-03-12] MEDS: Phenytoin Sodium Extended 100 MG CAPSULE PO (20:51)
[2023-03-13] VITALS (8 sets, daily range): BP systolic 109–137; BP diastolic 58–78; PULSE 65–138; RESP 15–20; TEMP 36.1–36.9; O2SAT 94–96
[2023-03-13] MEDS: dilTIAZem HCL 125 MG in 0.9 % Sodium Chloride 100 ML 15 MG IVCONT (00:04)
[2023-03-13] MEDS: Digoxin 0.5 MG/2 ML AMPUL 0.25 MG IVPUSH (02:14)
[2023-03-13 03:08] LABS: PTT Heparin Drip 151.7 SEC (53-77.9)
[2023-03-13 04:27] LABS: PTT Heparin Drip 84.3 SEC (53-77.9)
[2023-03-13] MEDS: Omeprazole 20 MG CAPSULE.DR PO (05:41)
[2023-03-13 07:10] LABS: MANUAL DIFF FLAG NO
[2023-03-13 07:18] LABS: Basophils Percent Auto 0.5 % (0-2); Eosinophils Absolute Auto 0.1 X10*3/uL (0.0-0.4); Hematocrit 37.4 % (37.0-47.0); Hemoglobin 12.1 g/dl (12.0-16.0); Imm Gran Abs Auto 0.02 X10*3/uL (0.00-0.03); Imm Gran Pct Auto 0.4 % (0.0-0.4); Lymphocytes Absolute Auto 2.3 X10*3/uL (1.2-4.9); Lymphocytes Percent Auto 40.6 % (20-40); Mean Corpuscular HGB Conc 32.4 g/dl (31.0-35.0); Mean Corpuscular Hemoglobin 31.1 pg (27.0-33.0); Mean Corpuscular Volume 96.1 fL (80.0-98.0); Mean Platelet Volume 11.2 fL (9.4-12.3); Monocytes Absolute Auto 0.6 X10*3/uL (0.1-1.2); Monocytes Percent Auto 10.1 % (2-11); Neutrophils Absolute Auto 2.6 x10*3/uL (2.0-8.3); Neutrophils Percent Auto 46.4 % (45-73); Platelet Count 126 X10*3/uL (160-400); Prothrombin Time 11.9 SEC (10.0-13.1); Red Blood Count 3.89 X10*6/uL (4.20-5.50); Red Cell Distribution Width 14.4 % (11.0-16.0); White Blood Count 5.6 X10*3/uL (4.8-10.8)
[2023-03-13 07:24] LABS: Anion Gap 9 (12-20); Blood Urea Nitrogen 8 mg/dL (9-16); Calcium 8.6 mg/dL (8.4-10.2); Carbon Dioxide 30 mmol/L (22-29); Chloride 108 mmol/L (96-108); Creatinine Clr Calc Pharmacy 108.3; Estimated Glomerular Filt Rate > 60; Glucose Random 97 mg/dL (60-115); Potassium 3.8 mmol/L (3.3-5.1); Sodium 143 mmol/L (135-145)
[2023-03-13 07:32] LABS: B Type Natriuretic Peptide 265 pg/mL (<100)
[2023-03-13] MEDS: Topiramate 25 MG TABLET 50 MG PO (08:56)
[2023-03-13] MEDS: Phenytoin Sodium Extended 100 MG CAPSULE PO ×3 (08:56→20:42)
[2023-03-13] MEDS: Nicotine 21 MG PATCH.TD24 TRANSDERMA (08:56)
[2023-03-13] MEDS: dilTIAZem HCL 125 MG in 0.9 % Sodium Chloride 100 ML IVCONT (08:57)
--- NOTE | 2023-03-13 08:58 | HO.PM.IMPN ---
Subjective Subjective Date of Service: 03/13/23 Interval History: f/u on chest pain, new afib with rvr, remains in af with rvr no sob, no ches pain Physical Exam Vital Signs: Vital Signs: Last Vital Signs Temp 97.3 F 03/13/23 07:25 Pulse 138 H 03/13/23 07:25 Resp 20 03/13/23 07:25 BP 130/74 03/13/23 07:25 Pulse Ox 94 03/13/23 07:25 O2 Del Method Room Air 03/13/23 07:25 BMI result Body Mass Index 52.0 Const: Other: General: AO X 3, no acute distress Resp: CTA bilateral CVS: S1,S2, iregular iregular , no leg edema GI: +BS, NT, no distention Skin: No rash Neuro: motor grossly intact Psych: appropriate affect Objective Data Active Medications Acetaminophen (Acetaminophen 325 Mg Tablet) 650 mg PO Q6H PRN PRN Reason: Pain, Mild (Pain Scale 1-3) Albuterol Sulfate (Albuterol Sulfate 90 Mcg 8 Gm Inhaler) 2 puff INHALE Q6H PRN PRN Reason: Shortness Of Breath Docusate Sodium (Docusate Sodium 100 Mg Capsule) 100 mg PO DAILY PRN PRN Reason: Constipation Heparin Sodium (Porcine) (Heparin Sodium,Porcine 5,000 Unit/Ml Vial) 5,000 unit 40 unit/kg (5000 unit) IVPUSH PROTOCOL BOLUS PRN; Protocol PRN Reason: 40 unit/kg - Heparin Protocol Heparin Sodium (Porcine) (Heparin Sodium,Porcine 5,000 Unit/Ml Vial) 10,000 unit 80 unit/kg (77649 unit) IVPUSH PROTOCOL BOLUS PRN; Protocol PRN Reason: 80 unit/kg - Heparin Protocol Diltiazem HCl 125 mg/ Sodium (Chloride) 125 mls @ 0 mls/hr IVCONT .Q0M [facility]; Protocol Last Admin: 03/13/23 08:57 Dose: 5 mg/hr, 5 mls/hr Documented By: VANIA Heparin Sodium/Sodium Chloride (Heparin Sodium,Porcine/1/2ns) 25,000 unit in 250 mls @ 0 mls/hr IVCONT .Q0M PR[facility]I; Protocol Last Titration: 03/13/23 04:36 Dose: 10 units/kg/hr, 12.49 mls/hr Documented By: JAVIER Co-signed By: PRISCILA Nicotine (Nicotine 21 Mg Patch.Td24) 21 mg TRANSDERMA DAILY [facility] Last Admin: 03/13/23 08:56 Dose: 21 mg Documented By: VANIA Omeprazole (Omeprazole 20 Mg Capsule.Dr) 20 mg PO DAILY@0630 [facility] Last Admin: 03/13/23 05:41 Dose: 20 mg Documented By: JAVIER Ondansetron HCl (Ondansetron Hcl 4 Mg/2 Ml Vial) 4 mg IVPUSH Q8H PRN PRN Reason: Nausea and Vomiting Pharmacy Consult (Consult Rx Perform Med Rec) 1 each MISCELLANE ONCE PRN PRN Reason: Consult order Phenytoin Sodium (Phenytoin Sodium Extended 100 Mg Capsule) 100 mg PO TID [facility] Last Admin: 03/13/23 08:56 Dose: 100 mg Documented By: VANIA Quetiapine Fumarate (Quetiapine Fumarate 100 Mg Tablet) 100 mg PO BEDTIME [facility] Last Admin: 03/12/23 20:51 Dose: 100 mg Documented By: CEE Sodium Chloride (0.9 % Sodium Chloride Flush 3 Ml Syringe) 3 ml IVFLUSH QSHIFT [facility] Last Admin: 03/13/23 07:55 Dose: Not Given Documented By: VANIA Non-Admin Reason: See Note Topiramate (Topiramate 25 Mg Tablet) 50 mg PO DAILY [facility] Last Admin: 03/13/23 08:56 Dose: 50 mg Documented By: VANIA Labs 03/13/23 07:05 03/13/23 07:05 Labs: Laboratory Results - last 24 hr 03/12/23 03/12/23 03/12/23 11:09 11:09 11:09 MCV 96.3 MCH 30.9 MCHC 32.1 RDW 14.6 Plt Count 142 L MPV 11.0 Immature Gran % (Auto) 0.2 Neut % (Auto) 59.5 Lymph % (Auto) 29.8 Smith % (Auto) 8.5 Eos % (Auto) 1.5 Baso % (Auto) 0.5 Lymph # (Auto) 1.6 Smith # (Auto) 0.5 Eos # (Auto) 0.1 Baso # (Auto) 0.0 Abs Immat Gran (auto) 0.01 Absolute Neuts (auto) 3.3 Absolute Nucleated RBC 0.000 Nucleated RBC % (auto) 0.0 PT 10.7 INR 0.9 aPTT Heparin Protocol D-Dimer High Sensitivty 261 Anion Gap 11 L Estim Creat Clear Calc 101.2 Estimated GFR > 60 Random Glucose 127 H Lactic Acid Calcium 8.5 Magnesium 2.0 Total Bilirubin 0.6 AST 15 ALT 11 Alkaline Phosphatase 187 H Total Creatine Kinase 61 Troponin I High Sens B-Natriuretic Peptide Total Protein 6.9 Albumin 3.7 Lipase 11 TSH 1.16 Urine Color Urine Appearance Urine pH Ur Specific Lloyd Urine Protein Urine Glucose (UA) Urine Ketones Urine Blood Urine Nitrite Ur Leukocyte Esterase Salicylates Urine Opiates Screen Urine Fentanyl Screen Acetaminophen Ur Barbiturates Screen Ur Phencyclidine Scrn Ur Amphetamines Screen U Benzodiazepines Scrn Urine Cocaine Screen U Marijuana (THC) Screen Ethyl Alcohol < 10 COVID-19 (ARLINE) COVID-19 [facility]. Com 03/12/23 03/12/23 03/12/23 11:09 11:09 11:09 MCV MCH MCHC RDW Plt Count MPV Immature Gran % (Auto) Neut % (Auto) Lymph % (Auto) Smith % (Auto) Eos % (Auto) Baso % (Auto) Lymph # (Auto) Smith # (Auto) Eos # (Auto) Baso # (Auto) Abs Immat Gran (auto) Absolute Neuts (auto) Absolute Nucleated RBC Nucleated RBC % (auto) PT INR aPTT Heparin Protocol D-Dimer High Sensitivty Anion Gap Estim Creat Clear Calc Estimated GFR Random Glucose Lactic Acid Calcium Magnesium Total Bilirubin AST ALT Alkaline Phosphatase Total Creatine Kinase Troponin I High Sens 3.4 B-Natriuretic Peptide 221 H Total Protein Albumin Lipase TSH Urine Color Urine Appearance Urine pH Ur Specific Lloyd Urine Protein Urine Glucose (UA) Urine Ketones Urine Blood Urine Nitrite Ur Leukocyte Esterase Salicylates < 5.0 L Urine Opiates Screen Urine Fentanyl Screen Acetaminophen < 17 Ur Barbiturates Screen Ur Phencyclidine Scrn Ur Amphetamines Screen U Benzodiazepines Scrn Urine Cocaine Screen U Marijuana (THC) Screen Ethyl Alcohol COVID-19 (ARLINE) COVID-19 [facility]. Com 03/12/23 03/12/23 03/12/23 11:10 11:10 11:35 MCV MCH MCHC RDW Plt Count MPV Immature Gran % (Auto) Neut % (Auto) Lymph % (Auto) Smith % (Auto) Eos % (Auto) Baso % (Auto) Lymph # (Auto) Smith # (Auto) Eos # (Auto) Baso # (Auto) Abs Immat Gran (auto) Absolute Neuts (auto) Absolute Nucleated RBC Nucleated RBC % (auto) PT INR aPTT Heparin Protocol D-Dimer High Sensitivty Anion Gap Estim Creat Clear Calc Estimated GFR Random Glucose Lactic Acid 1.2 Calcium Magnesium Total Bilirubin AST ALT Alkaline Phosphatase Total Creatine Kinase Troponin I High Sens B-Natriuretic Peptide Total Protein Albumin Lipase TSH Urine Color Yellow Urine Appearance Clear Urine pH 7.0 Ur Specific Lloyd <= 1.005 Urine Protein Negative Urine Glucose (UA) Negative Urine Ketones Negative Urine Blood Negative Urine Nitrite Negative Ur Leukocyte Esterase Negative Salicylates Urine Opiates Screen Urine Fentanyl Screen Acetaminophen Ur Barbiturates Screen Ur Phencyclidine Scrn Ur Amphetamines Screen U Benzodiazepines Scrn Urine Cocaine Screen U Marijuana (THC) Screen Ethyl Alcohol COVID-19 (ARLINE) Negative COVID-19 [facility]. Com See Note 03/12/23 03/12/23 03/12/23 11:35 20:03 20:03 MCV 97.4 MCH 31.5 MCHC 32.3 RDW 14.7 Plt Count 144 L MPV 11.1 Immature Gran % (Auto) Neut % (Auto) Lymph % (Auto) Smith % (Auto) Eos % (Auto) Baso % (Auto) Lymph # (Auto) Smith # (Auto) Eos # (Auto) Baso # (Auto) Abs Immat Gran (auto) Absolute Neuts (auto) Absolute Nucleated RBC 0.000 Nucleated RBC % (auto) 0.0 PT 11.1 INR 1.0 aPTT Heparin Protocol 31.9 L D-Dimer High Sensitivty Anion Gap Estim Creat Clear Calc Estimated GFR Random Glucose Lactic Acid Calcium Magnesium Total Bilirubin AST ALT Alkaline Phosphatase Total Creatine Kinase Troponin I High Sens B-Natriuretic Peptide Total Protein Albumin Lipase TSH Urine Color Urine Appearance Urine pH Ur Specific Lloyd Urine Protein Urine Glucose (UA) Urine Ketones Urine Blood Urine Nitrite Ur Leukocyte Esterase Salicylates Urine Opiates Screen Not Detected Urine Fentanyl Screen Not Detected Acetaminophen Ur Barbiturates Screen Not Detected Ur Phencyclidine Scrn Not Detected Ur Amphetamines Screen Not Detected U Benzodiazepines Scrn Not Detected Urine Cocaine Screen Not Detected U Marijuana (THC) Screen Not Detected Ethyl Alcohol COVID-19 (ARLINE) COVID-19 Clin Com 03/13/23 03/13/23 03/13/23 02:28 04:09 07:05 MCV 96.1 MCH 31.1 MCHC 32.4 RDW 14.4 Plt Count 126 L MPV 11.2 Immature Gran % (Auto) 0.4 Neut % (Auto) 46.4 Lymph % (Auto) 40.6 H Smith % (Auto) 10.1 Eos % (Auto) 2.0 Baso % (Auto) 0.5 Lymph # (Auto) 2.3 Smith # (Auto) 0.6 Eos # (Auto) 0.1 Baso # (Auto) 0.0 Abs Immat Gran (auto) 0.02 Absolute Neuts (auto) 2.6 Absolute Nucleated RBC 0.000 Nucleated RBC % (auto) 0.0 PT INR aPTT Heparin Protocol 151.7 H* D 84.3 H D D-Dimer High Sensitivty Anion Gap Estim Creat Clear Calc Estimated GFR Random Glucose Lactic Acid Calcium Magnesium Total Bilirubin AST ALT Alkaline Phosphatase Total Creatine Kinase Troponin I High Sens B-Natriuretic Peptide Total Protein Albumin Lipase TSH Urine Color Urine Appearance Urine pH Ur Specific Lloyd Urine Protein Urine Glucose (UA) Urine Ketones Urine Blood Urine Nitrite Ur Leukocyte Esterase Salicylates Urine Opiates Screen Urine Fentanyl Screen Acetaminophen Ur Barbiturates Screen Ur Phencyclidine Scrn Ur Amphetamines Screen U Benzodiazepines Scrn Urine Cocaine Screen U Marijuana (THC) Screen Ethyl Alcohol COVID-19 (ARLINE) COVID-19 Crush on original products 03/13/23 03/13/23 03/13/23 07:05 07:05 07:05 MCV MCH MCHC RDW Plt Count MPV Immature Gran % (Auto) Neut % (Auto) Lymph % (Auto) Smith % (Auto) Eos % (Auto) Baso % (Auto) Lymph # (Auto) Smith # (Auto) Eos # (Auto) Baso # (Auto) Abs Immat Gran (auto) Absolute Neuts (auto) Absolute Nucleated RBC Nucleated RBC % (auto) PT 11.9 INR 1.0 aPTT Heparin Protocol D-Dimer High Sensitivty Anion Gap 9 L Estim Creat Clear Calc 108.3 Estimated GFR > 60 Random Glucose 97 Lactic Acid Calcium 8.6 Magnesium Total Bilirubin AST ALT Alkaline Phosphatase Total Creatine Kinase Troponin I High Sens B-Natriuretic Peptide 265 H Total Protein Albumin Lipase TSH Urine Color Urine Appearance Urine pH Ur Specific Lloyd Urine Protein Urine Glucose (UA) Urine Ketones Urine Blood Urine Nitrite Ur Leukocyte Esterase Salicylates Urine Opiates Screen Urine Fentanyl Screen Acetaminophen Ur Barbiturates Screen Ur Phencyclidine Scrn Ur Amphetamines Screen U Benzodiazepines Scrn Urine Cocaine Screen U Marijuana (THC) Screen Ethyl Alcohol COVID-19 (ARLINE) COVID-19 Clin Com Assessment and Plan (1) Atrial flutter: Status: Acute (2) CHF (congestive heart failure): Status: Acute (3) Chest pain: Status: Acute Plan 63-year-old female with history of GERD, gastritis, history of CVA, asthma, insomnia, epilepsy, who is a current 1 pack per day smoker admitted for new onset atrial flutter and congestive heart failure. # new onset atrial flutter with RVR, persistent tachycardia on IV, add metoprolol PO, consider dig, anticoagulation with heparin, awaiting cardiology eval. Echo today # new onset congestive heart failure d/t AFIB, got Lasix in ED, echo to further assess, # chest pain, negative treate, likely related to afib, been treated as ACS for now, # GERD/gastritis -continue omeprazole # mild intermittent asthma -no acute exacerbation -albuterol p.r.n. # epilepsy -has not taken anti-epileptics in 3 months due to move to [place] without seizure activity -Resume phenytoin 100mg TID and topamax # cigarette smoker -smokes 1 pack cigarettes daily -patches for NRT -smoking cessation counseling DVT prophylaxis- on heparin Full code need for inptz: new afib with RVR, need IV med to control heart rate Time Spent With Patient Time: Total time managing care of this patient today ____ minutes. Quality Stroke Does the patient have a stroke diagnosis?: No VTE Prior VTE?: No VTE Risk Level:: Medical - moderate - high VTE Device Contraindication: Treatment Not Indicated VTE Drug Contraindication: N/A - Med Ordered
[2023-03-13] MEDS: Acetaminophen 325 MG TABLET 650 MG PO (09:00)
[2023-03-13] MEDS: Metoprolol Tartrate 25 MG TABLET PO ×3 (09:28→20:42)
--- NOTE | 2023-03-13 09:44 | MHC.CM.PN ---
Addendum entered by Deja Berry 03/13/23 09:51: Pt gave permission for us to speak with her daughter Leyla for further information and stated she wants her to be the HCP. Original Note: IMM 03/13. Pt admitted with aflutter RVR, CHF. Pt SSO, she lives at home with her daughter Leyla [phone]. D/C plan pending further eval, but pt would like to return home with her daughter, possibly with new VNA. Pts daughter will transport her home. Assistance offered to make a HCP, Leyla is on her way to visit and will help fill one out with her mom today. Pt does not have a PCP since she is new to the area, a list of local PCP's will be given to pt. Pts daughter Leyla also shared that her mother has been stressed because Leyla has only 30 days left in their apartment, and then needs to find a new residence and has not been successful. 413 family resource guide will be given to pt and daughter when she arrives.
[2023-03-13 11:00] LABS: PTT Heparin Drip 107.4 SEC (53-77.9)
--- NOTE | 2023-03-13 15:17 | PM.CNCAR ---
History of Present Illness History of Present Illness Date of Service: 03/13/23 Requesting physician: Kaushik Marquesnyu [facility] Chief complaint: aflutter rvr, chf Narrative: 63-year-old female who is presenting with chest pain, dyspnea and palpitations. She was noticed to have atrial flutter. Chest x-ray showed mild congestive heart failure. She has mild elevation of troponin. She was given IV Lasix and was started on Cardizem drip. She also received digoxin load overnight. She is still in atrial flutter right now and heart rate appear to be well controlled. She is denying any palpitations. She is laying flat and has no dyspnea. Denying chest discomfort. She says the chest discomfort was more like a fluttering sensation in the chest. No bleeding issues in the past. [facility] Past Medical History Medical History Gastritis GERD (gastroesophageal reflux disease) History of stroke Morbid obesity Nicotine dependence Seizure disorder Social History Social History Household Members: Family Housing: Apartment Patient Tobacco Use Status: Current everyday Tobacco user Tobacco use type: Cigarette Cigarette Packs Per Day: 0.5 Cigarettes Per Day: 10.0 Smoked in Last 30 Days: Yes Patient Interested in Nicotine Replacement: Yes Use of substances other than those prescribed or required for medical reasons: No Currently Displaying Signs/Symptoms of Drug Intoxication Withdrawal: No Have you been hit, kicked, punched, or otherwise hurt by someone within the past year? If so, by whom?: No Do you feel safe in your current relationship?: No Current Relationship Is there a partner from a previous relationship who is making you feel unsafe now?: No Are you made to feel afraid or neglected: No Advance Directives: No Advance Directives Information Provided: No Do you have thoughts of harming others: None Do you have a plan to hurt others: No Plan Recently lost weight without trying: No Nutrition Risks: No Nutritional Risk Patient : No : No Poor oral hygiene: No service: No Meds Allergies Allergy/AdvReac Type Severity Reaction Status Date / Time morphine Allergy Unknown rash Verified 06/18/17 00:00 No Known Allergies Allergy Unverified 05/11/20 14:59 [No Known Allergies*] Motrin Allergy Unknown stomach Uncoded 10/25/17 00:00 upset Active Medications: Current Medications Acetaminophen (Acetaminophen 325 Mg Tablet) 650 mg PO Q6H PRN PRN Reason: Pain, Mild (Pain Scale 1-3) Last Admin: 03/13/23 09:00 Dose: 650 mg Albuterol Sulfate (Albuterol Sulfate 90 Mcg 8 Gm Inhaler) 2 puff INHALE Q6H PRN PRN Reason: Shortness Of Breath Docusate Sodium (Docusate Sodium 100 Mg Capsule) 100 mg PO DAILY PRN PRN Reason: Constipation Heparin Sodium (Porcine) (Heparin Sodium,Porcine 5,000 Unit/Ml Vial) 5,000 unit 40 unit/kg (5000 unit) IVPUSH PROTOCOL BOLUS PRN; Protocol PRN Reason: 40 unit/kg - Heparin Protocol Heparin Sodium (Porcine) (Heparin Sodium,Porcine 5,000 Unit/Ml Vial) 10,000 unit 80 unit/kg (56909 unit) IVPUSH PROTOCOL BOLUS PRN; Protocol PRN Reason: 80 unit/kg - Heparin Protocol Diltiazem HCl 125 mg/ Sodium (Chloride) 125 mls @ 0 mls/hr IVCONT .Q0M [facility]; Protocol Last Titration: 03/13/23 10:19 Dose: 0 mg/hr, 0 mls/hr Heparin Sodium/Sodium Chloride (Heparin Sodium,Porcine/1/2ns) 25,000 unit in 250 mls @ 0 mls/hr IVCONT .Q0M [facility]; Protocol Last Titration: 03/13/23 12:05 Dose: 7 units/kg/hr, 8.74 mls/hr Metoprolol Tartrate (Metoprolol Tartrate 25 Mg Tablet) 25 mg PO Q6H [facility]; Protocol Last Admin: 03/13/23 14:07 Dose: 25 mg Nicotine (Nicotine 21 Mg Patch.Td24) 21 mg TRANSDERMA DAILY [facility] Last Admin: 03/13/23 08:56 Dose: 21 mg Omeprazole (Omeprazole 20 Mg Capsule.Dr) 20 mg PO DAILY@0630 [facility] Last Admin: 03/13/23 05:41 Dose: 20 mg Ondansetron HCl (Ondansetron Hcl 4 Mg/2 Ml Vial) 4 mg IVPUSH Q8H PRN PRN Reason: Nausea and Vomiting Pharmacy Consult (Consult Rx Perform Med Rec) 1 each MISCELLANE ONCE PRN PRN Reason: Consult order Phenytoin Sodium (Phenytoin Sodium Extended 100 Mg Capsule) 100 mg PO TID [facility] Last Admin: 03/13/23 14:07 Dose: 100 mg Quetiapine Fumarate (Quetiapine Fumarate 100 Mg Tablet) 100 mg PO BEDTIME [facility] Last Admin: 03/12/23 20:51 Dose: 100 mg Sodium Chloride (0.9 % Sodium Chloride Flush 3 Ml Syringe) 3 ml IVFLUSH QSHIFT [facility] Last Admin: 03/13/23 13:21 Dose: Not Given Topiramate (Topiramate 25 Mg Tablet) 50 mg PO DAILY [facility] Last Admin: 03/13/23 08:56 Dose: 50 mg Home Medications Medication Instructions Recorded Confirmed Last Taken Type albuterol sulfate 90 mcg/actuation 2 puff inhalation Q6H PRN 03/12/23 03/12/23 Unknown History aerosol inhaler (ProAir HFA) Shortness Of Breath omeprazole 20 mg capsule,delayed 20 mg PO DAILY 03/12/23 03/12/23 Unknown History release phenytoin sodium extended 100 mg 100 mg PO TID 03/12/23 03/12/23 Unknown History capsule (Dilantin Extended) propranolol 120 mg capsule,24 120 mg PO DAILY 03/12/23 03/12/23 Unknown History hr,extended release quetiapine 100 mg tablet 100 mg PO DAILY 03/12/23 03/12/23 Unknown History topiramate 50 mg tablet 50 mg PO DAILY 03/12/23 03/12/23 Unknown History Physical Exam Vital Signs: Vital Signs: Last Vital Signs Temp 98.4 F 03/13/23 14:56 Pulse 96 03/13/23 14:56 Resp 19 03/13/23 14:56 BP 137/72 03/13/23 14:56 Pulse Ox 95 03/13/23 14:56 O2 Del Method Room Air 03/13/23 14:56 BMI result Body Mass Index 52.0 GENERAL APPEARANCE: in no acute distress, pleasant. Morbidly obese. NECK: no carotid bruit, no jugular venous distention. SKIN: no suspicious lesions, warm and dry. HEART: no murmurs, regular rate and rhythm. LUNGS: clear to auscultation bilaterally. ABDOMEN: soft, nontender. EXTREMITIES: no edema. PERIPHERAL PULSES: equal. NEUROLOGIC: No gross deficits, AAO X 3 Objective Labs and Meds 03/13/23 07:05 07/20/23 07:05 Lab results: Laboratory Results - last 24 hr 03/12/23 03/12/23 03/12/23 11:09 20:03 20:03 WBC 7.8 RBC 4.16 L Hgb 13.1 Hct 40.5 MCV 97.4 MCH 31.5 MCHC 32.3 RDW 14.7 Plt Count 144 L MPV 11.1 Immature Gran % (Auto) Neut % (Auto) Lymph % (Auto) Dickenson % (Auto) Eos % (Auto) Baso % (Auto) Lymph # (Auto) Dickenson # (Auto) Eos # (Auto) Baso # (Auto) Abs Immat Gran (auto) Absolute Neuts (auto) Absolute Nucleated RBC 0.000 Nucleated RBC % (auto) 0.0 PT 11.1 INR 1.0 aPTT Heparin Protocol 31.9 L Sodium Potassium Chloride Carbon Dioxide Anion Gap BUN Creatinine Estim Creat Clear Calc Estimated GFR Random Glucose Calcium B-Natriuretic Peptide TSH 1.16 03/13/23 03/13/23 03/13/23 02:28 04:09 07:05 WBC 5.6 RBC 3.89 L Hgb 12.1 Hct 37.4 MCV 96.1 MCH 31.1 MCHC 32.4 RDW 14.4 Plt Count 126 L MPV 11.2 Immature Gran % (Auto) 0.4 Neut % (Auto) 46.4 Lymph % (Auto) 40.6 H Dickenson % (Auto) 10.1 Eos % (Auto) 2.0 Baso % (Auto) 0.5 Lymph # (Auto) 2.3 Dickenson # (Auto) 0.6 Eos # (Auto) 0.1 Baso # (Auto) 0.0 Abs Immat Gran (auto) 0.02 Absolute Neuts (auto) 2.6 Absolute Nucleated RBC 0.000 Nucleated RBC % (auto) 0.0 PT INR aPTT Heparin Protocol 151.7 H* D 84.3 H D Sodium Potassium Chloride Carbon Dioxide Anion Gap BUN Creatinine Estim Creat Clear Calc Estimated GFR Random Glucose Calcium B-Natriuretic Peptide TSH 03/13/23 03/13/23 03/13/23 07:05 07:05 07:05 WBC RBC Hgb Hct MCV MCH MCHC RDW Plt Count MPV Immature Gran % (Auto) Neut % (Auto) Lymph % (Auto) Dickenson % (Auto) Eos % (Auto) Baso % (Auto) Lymph # (Auto) Dickenson # (Auto) Eos # (Auto) Baso # (Auto) Abs Immat Gran (auto) Absolute Neuts (auto) Absolute Nucleated RBC Nucleated RBC % (auto) PT 11.9 INR 1.0 aPTT Heparin Protocol Sodium 143 Potassium 3.8 Chloride 108 Carbon Dioxide 30 H Anion Gap 9 L BUN 8 L Creatinine 0.66 Estim Creat Clear Calc 108.3 Estimated GFR > 60 Random Glucose 97 Calcium 8.6 B-Natriuretic Peptide 265 H TSH 03/13/23 10:33 WBC RBC Hgb Hct MCV MCH MCHC RDW Plt Count MPV Immature Gran % (Auto) Neut % (Auto) Lymph % (Auto) Dickenson % (Auto) Eos % (Auto) Baso % (Auto) Lymph # (Auto) Dickenson # (Auto) Eos # (Auto) Baso # (Auto) Abs Immat Gran (auto) Absolute Neuts (auto) Absolute Nucleated RBC Nucleated RBC % (auto) PT INR aPTT Heparin Protocol 107.4 H* D Sodium Potassium Chloride Carbon Dioxide Anion Gap BUN Creatinine Estim Creat Clear Calc Estimated GFR Random Glucose Calcium B-Natriuretic Peptide TSH Assessment and Plan (1) Atrial flutter: Status: Acute (2) CHF (congestive heart failure): Status: Acute (3) Chest pain: Status: Acute Plan 63-year-old female presenting for atrial flutter and mild congestive heart failure. She is describing mostly palpitations and no clear chest discomfort. She is rate controlled currently. She was given 40 mg IV Lasix. Will do echocardiography. Started on apixaban 5 mg twice a day. Change metoprolol to 75 mg of Toprol-XL. Digoxin 125 mcg p.o. every 48 hours. Stop the Cardizem. Thank you for allowing me to participate in the care of your patient. Please feel free to contact me if you have any questions. Time Spent With Patient Time: Total time managing care of this patient today ____ minutes. Procedures Date of Service Date of Service: 03/13/23
[2023-03-13 19:01] LABS: PTT Heparin Drip 61.3 SEC (53-77.9)
[2023-03-13] MEDS: Heparin Sodium,Porcine/1/2NS 25,000 UNIT/250 ML IV.SOLN 8.74 UNIT IVCONT (19:26)
[2023-03-13] MEDS: QUEtiapine Fumarate 100 MG TABLET PO (20:42)
[2023-03-14 00:48] LABS: PTT Heparin Drip 67.2 SEC (53-77.9)
[2023-03-14] MEDS: 0.9 % Sodium Chloride Flush 3 ML SYRINGE IVFLUSH ×3 (01:43→14:45)
[2023-03-14] MEDS: Metoprolol Tartrate 25 MG TABLET PO ×2 (03:04→09:16)
[2023-03-14 03:54] VITALS: BP 109/52; PULSE 88; RESP 18; TEMP 36.2; O2SAT 98
[2023-03-14] MEDS: Omeprazole 20 MG CAPSULE.DR PO (06:09)
[2023-03-14 07:00] LABS: PTT Heparin Drip 78.8 SEC (53-77.9)
--- NOTE | 2023-03-14 07:00 | CA_ITS ---
Transthoracic Echocardiogram Patient (Last, First, Middle): Annetta Hernandez, Gender: Female Date of : 1960 Age: 63 Procedure Date: 03/14/2023 Procedure Type: Transthoracic Echocardiogram Location: [facility] Height: 154.94 cm Weight: 124.74 kg BSA: 2.16 m2 Heart Rate: 86 bpm BP: 120 / 80 mmHg Power Manager: MANUEL Referring MD: Kaushki Darling MD Symptoms: afib Study Quality: Adequate w contrast ECG Rhythm: Atrial flutter Conclusions: - Normal right ventricular cavity size. There is borderline right ventricular systolic function. - There is mild dilatation of the ascending aorta measuring 3.40 cm. Findings Procedure Information Contrast agent, definity, is being given per protocol without apparent complications. Left Ventricle Normal left ventricular size, thickness, and systolic function. The visually estimated ejection fraction is between 55-60%. There is no evidence of regional wall motion abnormalities. Diastolic function is indeterminate on the basis of available data. Right Ventricle Normal right ventricular cavity size. There is borderline right ventricular systolic function. Atria The left atrium is normal in size. The right atrium is normal in size. Aortic Valve Normal aortic valve structure and function. There is no aortic valve stenosis. There is no aortic valve regurgitation. Mitral Valve Likely normal mitral valve structure and function. There is no mitral valve regurgitation. There is no mitral valve stenosis. Pulmonic Valve The pulmonic valve was not well visualized. Tricuspid Valve Normal tricuspid valve structure. There is no tricuspid valve regurgitation. Normal right atrial pressure. There is no evidence of pulmonary hypertension. Great Vessels There is mild dilatation of the ascending aorta measuring 3.40 cm. The visualized portions of the pulmonary artery and branches are normal. Venous The inferior vena cava is normal in size and collapses greater than 50% with inspiration. Pericardium/Pleural There is no evidence of pericardial effusion. Prior Study Comparison No prior study available for comparison. Measurements 2D Linear Measurements IVSd: 1.25 0.6-0.9/0.6-1.0 cm LVIDd: 4.57 3.9-5.3/4.2-5.9 cm LVIDd Index: 2.12 2.4-3.2/2.2-3.1 cm/m2 LVIDs: 3.71 2.0-3.6 cm LVPWd: 0.81 0.7-1.1 cm LA Diam: 4.00 2.7-3.8/3.0-4.0 cm LAIDs Index: 1.85 1.5-2.3 cm/m2 LV Mass: 203.97 67-162/88-224 g LV Mass Index: 94.43 43-95/49-115 g/m2 LVOT Diam: 2.20 3.0+(-)1.3 cm 2D Systolic Function EF 4C: 43.90 >55% EF 2C: 47.20 >55% EF BiP: 48.40 >55% Mitral Valve MV Pk E: 1.11 E'Lateral: 9.00 E'Medial: 7.59 E/E' Med: 14.60 E/E' Lat: 12.30 Aortic Valve AoV Pk Silverio: 1.06 AoV Pk Grad: 4.00 PREMA: 3.15 LVOT LVOT Pk Silverio: 0.88 LVOT Mn Silverio: 0.63 LVOT VTI: 0.16 LVOT Pk Grad: 3.00 LVOT Mn Grad: 2.00 LVOT Diam: 2.20 LVOT Area: 3.80 Diastolic Function MV Pk E: 1.11 E'Medial: 7.59 E/E' Med: 14.60 E' Laterial: 9.00 E/E' Lat: 12.30 Right Ventricle TAPSE (mm): 18.00 TVS' Silverio: 10.10 Tricuspid Valve TR Pk Silverio: 1.92 TR Pk Grad: 15.00 RA Press: 3.00 RVSP: 18.00 Great Vessels Aorta Sinus of Valsalva: 3.00 2.0-3.5 cm Ao Asc: 3.40 2.1-3.4 cm Pulmonary Valve PV Pk Silverio: 0.84 Peak PV Grad: 3.00 Updated in Other Vendor System with Status of Final Nathaniel Peña MD electronically signed on 03/14/2023 3:51:14 PM with status of Final
[2023-03-14 07:21] VITALS: BP 120/80; PULSE 94; RESP 20; TEMP 36.1; O2SAT 98
[2023-03-14] MEDS: ondansetron HCL 4 MG/2 ML VIAL IVPUSH (09:15)
[2023-03-14] MEDS: Nicotine 21 MG PATCH.TD24 TRANSDERMA (09:15)
[2023-03-14] MEDS: Metoprolol Succinate ER 25 MG TAB.ER.24H 75 MG PO (09:16)
[2023-03-14] MEDS: Phenytoin Sodium Extended 100 MG CAPSULE PO ×2 (09:16→14:45)
[2023-03-14] MEDS: Topiramate 25 MG TABLET 50 MG PO (09:16)
[2023-03-14] MEDS: Apixaban 5 MG TABLET PO (09:27)
--- NOTE | 2023-03-14 09:29 | P.DS_ITS ---
DS: Providers Provider Date of Service: 03/14/23 Date of admission: 03/12/23 15:07 Primary care physician: Jostin Suggs DO Consults: 03/12/23 15:07 Consult to Cardiology Routine Consulting Provider: [facility] [place] [facility] Reason for consultation: aflutter rvr, chf DS: Diagnosis Discharge Diagnosis (1) Atrial flutter: Status: Acute (2) CHF (congestive heart failure): Status: Acute (3) Chest pain: Status: Acute DS: Summary Hospital Course Hospital Course: Chief Complaint: anxiety, chest pain 63-year-old female with history of GERD, gastritis, history of CVA, asthma, insomnia, epilepsy, who is a current 1 pack per day smoker presents to the ED with her daughter with whom she lives for evaluation of chest pain that started last night.? The patient recently moved in with her daughter about 3 months ago from [place] and medical history provided by patient and daughter seems uncertain and she has not had any of her medications in the last 3 months.? hematology nurse educator is used during exam.? Per the patient, she developed retrosternal chest pressure radiating to the left side of the neck and through to the back last night.? Pain has been constant with associated shortness of breath, fatigue, malaise, and orthopnea but she states the orthopnea is not new.? She does also endorse longstanding lower extremity edema.? She has also been experiencing anxiety and when brought to the ED while still in the car this morning felt like she was going to have a seizure but did not actually have any seizure episode. On arrival, heart rate elevated into the 160s, hypertensive to 184/117.? EKG showed atrial flutter with 2-1 AV conduction, rate [address] abnormality in inferior and anterior leads.? There is no leukocytosis.? Renal function normal, electrolyte levels normal.? Lactic acid 1.2.? Total CK 61.? Troponin 3.4.? BNP 221.? D-dimer 261, appropriate based on age.? Urinalysis unremarkable.? U tox negative, ethyl alcohol level negative.? Negative for COVID-19.? CT of the head negative for any acute intracranial abnormality.? Chest x-ray with mild bilateral pulmonary edema, no pleural effusions.? In the ED, given 10 mg IV push Cardizem x2 without improvement and patient started on Cardizem drip.? She was also given 40 mg IV Lasix. At this time pt reports she is still experiencing mild retrosternal chest pain and lightheadedness but denies any radiation or shortness of breath.? No diaphoresis. Hospital course: Patient presented with chest pain and found to be in AFIB with RVR, ACS work up was negative with troponin level and no ecg evidence of acute ischemic event, she was on heparin for anticoagulation. AFIB with RVR was treated with IV cardizem and later transitioned to metoprolol 25 q6, Heart rate is in 80s to 90s now, cardiology has been following and recommends Toprolol 75 mg at dischare, along with digoxin 0. 125 mg every other day. Elquis 5 mg bid for anticoagulation and stroke prevention. Her chest pain has resolved. Advised to excercise, avoid high caloric food and loose weight. To follow up with Dr Loya in the office and may need cardioversion in the future final diagnosis afib with rvr chest pain morbid obesity Time Spent with Patient Time attestation: Total time managing care of this patient today ____ minutes. Discharge coordination time: Greater than 30 minutes Quality: Safe Use of Opioids Does Pt have an Active Cancer Diagnosis on the Problem List?: No Quality: Stroke Does the patient have a stroke diagnosis?: No Physical Exam Vital Signs: Vital Signs: Last Vital Signs Temp 96.9 F 03/14/23 07:21 Pulse 94 03/14/23 07:21 Resp 20 03/14/23 07:21 BP 120/80 03/14/23 07:21 Pulse Ox 98 03/14/23 07:21 O2 Del Method Room Air 03/14/23 07:21 BMI result Body Mass Index 52.0 Const: Other: General: AO X 3, no acute distress Resp: CTA bilateral CVS: S1,S2, iregular iregular GI: +BS, NT, no distention Skin: No rash Neuro: motor grossly intact Psych: appropriate affect DS: Data Data Completed and Pending Labs on day of discharge: Laboratory Results - last 24 hr 03/13/23 03/13/23 03/14/23 10:33 18:21 00:28 aPTT Heparin Protocol 107.4 H* D 61.3 D 67.2 03/14/23 06:16 aPTT Heparin Protocol 78.8 H Preliminary micro results at discharge 03/12/23 11:16 Blood Culture - Preliminary Blood - Venous No growth after 24 hours. 03/12/23 11:08 Blood Culture - Preliminary Blood - Venous No growth after 24 hours. Discharge Plan Discharge Anticipated Discharge Date/Time: 03/14/23 09:26 Patient Disposition: Home, Self-Care Discharge Diagnosis: AFIB with RVR Referrals: Jostin Suggs, [Primary Care Provider] - 1 Week Discharge Medications: New Eliquis 5 mg Tablet 5 mg PO BID Qty: 60 0RF metoprolol succinate 25 mg Tablet Extended Release 24 Hr 75 mg PO DAILY Qty: 30 0RF Protocol: Hold for SBP/HR < HOLD for SBP < : 90 HOLD for HR < : 60 Continued omeprazole [Prilosec] 20 mg Capsule,Delayed Release(Dr/Ec) 20 mg PO DAILY phenytoin sodium extended [Dilantin Extended] 100 mg Capsule 100 mg PO TID quetiapine 100 mg Tablet 100 mg PO DAILY propranolol 120 mg Capsule,Extended Release 24 Hr 120 mg PO DAILY topiramate 50 mg Tablet 50 mg PO DAILY albuterol sulfate [ProAir HFA] 90 mcg/actuation Hfa Aerosol Inhaler 2 puff INHALATION Q6H PRN (Reason: Shortness Of Breath) Discharge Orders: Discharge Order (Routine); Ordered 03/14/23 Ordered By: Kaushik Darling Diet: Advance to usual diet Activity on Discharge: As tolerated Stand Alone Forms: Patient Portal Discharge page Care Plan Goals: control of atrial fibrilation and prevent stroke Health Concerns: afib, obesity Plan of Treatment: take Toprol (metoprolol) as recommended take eliquis to thin your blood and prevent stroke follow up wtih your primary care provider follow up with DR. loya (heart doctor) Assessment: see above
--- NOTE | 2023-03-14 09:56 | MHC.CM.PN ---
Addendum entered by Kelsey Reyes RN 03/14/23 15:38: CM [facility] HAS ATTEMPTED TO CONTACT [facility] AND CANNOT GET PT APPT UNIT APR/JUN W/ANY [facility] PROVIDER, MESSAGE LEFT W/[facility] AND THEY WERE GIVEN PT'S DTR WILLIAM'S CONTACT INFO TO FOLLOW UP W/A NEW PT APPT. Original Note: PT MEDICALLY CLEARED FOR D/C HOME, NO SERVICES ORDERED, DTR FOR TRANSPORT
[2023-03-14] MEDS: Digoxin 0.125 MG TABLET PO (10:44)
[2023-03-14 11:21] VITALS: BP 131/74; PULSE 79; RESP 20; TEMP 36.4; O2SAT 98
--- NOTE | 2023-03-14 12:42 | PM.PNCARD ---
Subjective Subjective Date of Service: 03/14/23 Interval history: Feeling good. HR control is ok. In atrial flutter. Physical Exam Vital Signs: Last Vital Signs Temp 97.5 F 03/14/23 11:21 Pulse 79 03/14/23 11:21 Resp 20 03/14/23 11:21 BP 131/74 03/14/23 11:21 Pulse Ox 98 03/14/23 11:21 O2 Del Method Room Air 03/14/23 11:21 BMI result Body Mass Index 52.0 GENERAL APPEARANCE: in no acute distress, pleasant. Morbidly obese. NECK: no carotid bruit, no jugular venous distention. SKIN: no suspicious lesions, warm and dry. HEART: no murmurs, regular rate and rhythm. LUNGS: clear to auscultation bilaterally. ABDOMEN: soft, nontender. EXTREMITIES: no edema. PERIPHERAL PULSES: equal. NEUROLOGIC: No gross deficits, AAO X 3 Objective Labs and Meds 03/13/23 07:05 03/13/23 07:05 Lab results: Laboratory Results - last 24 hr 03/13/23 03/14/23 03/14/23 18:21 00:28 06:16 aPTT Heparin Protocol 61.3 D 67.2 78.8 H Progress Note: A&P Assessment and plan (1) Atrial flutter: Status: Acute (2) CHF (congestive heart failure): Status: Acute Plan 63 female with palpitations due to atrial flutter and mild CHF. She has non anginal CP. Diuresed. On toprol and digoxin. Increase Toprol to 100 mg daily and c/w digoxin q 48 hours. c/w. Apixaban. We will do cardioversion as outpatient. Time Spent With Patient Time: Total time managing care of this patient today ____ minutes. Progress Note: Quality Stroke Does the patient have a stroke diagnosis?: No Procedures Date of Service Date of Service: 03/14/23
[2023-03-14 13:33] LABS: PTT Heparin Drip 37.1 SEC (53-77.9)
== END 2023-03-14 15:50 | disposition home or self-care (01) | DRG 194 ==
LOC: HO.ED 13:26 → HO.EDOVER 15:23 → HO.IMC 17:29
PROVIDERS: Physician Assistant; Student in an Organized Health Care Education/Training Program; Admitting Provider Physician Assistant; Emergency Provider Emergency Medicine; PCP Family Medicine; Visit Provider Internal Medicine
DX: I11.0 Hypertensive heart disease with heart failure (principal); I48.92 Unspecified atrial flutter; Z79.01 Long term (current) use of anticoagulants; I50.9 Heart failure, unspecified; E66.01 Morbid (severe) obesity due to excess calories; Z91.148 Patient's other noncompliance with medication regimen for other reason; Z68.43 Body mass index [BMI] 50.0-59.9, adult; J45.20 Mild intermittent asthma, uncomplicated; F17.210 Nicotine dependence, cigarettes, uncomplicated; Z20.822 Contact with and (suspected) exposure to COVID-19; Z71.6 Tobacco abuse counseling; Z86.73 Personal history of transient ischemic attack (TIA), and cerebral infarction without residual deficits; Z79.899 Other long term (current) drug therapy
CPT/HCPCS: 36415; 70450; 71045; 80048; 80053; 80143; 80179; 80307; 81003; 82550; 83605; 83690; 83735; 83880; 84443; 84484; 85025; 85027; 85379; 85610; 85730; 87040; 87635; 93005; 93306; 99285; J1160; J1643; J1940; J2405; Q9957

== ENCOUNTER 2023-03-12 15:07 | Outpatient (BNV) | payer OTHER, SELFPAY | END 2023-03-14 07:00 | PROVIDERS: Admitting Provider Physician Assistant; Emergency Provider Emergency Medicine; PCP Family Medicine; Visit Provider Internal Medicine Cardiovascular Disease | DX: I48.92 Unspecified atrial flutter (principal) | CPT/HCPCS: 93306 ==

== ENCOUNTER → 2023-03-12 15:07 | Outpatient (BNV) | payer OTHER, SELFPAY | PROVIDERS: Admitting Provider Physician Assistant; Emergency Provider Emergency Medicine; PCP Family Medicine; Visit Provider Physician Assistant | DX: I48.92 Unspecified atrial flutter (principal); I50.9 Heart failure, unspecified; R07.9 Chest pain, unspecified | CPT/HCPCS: 99223; 99233; 99239 ==

== ENCOUNTER → 2023-03-12 15:07 | Outpatient (BNV) | payer OTHER, SELFPAY | PROVIDERS: Admitting Provider Physician Assistant; Emergency Provider Emergency Medicine; PCP Family Medicine; Visit Provider Internal Medicine Cardiovascular Disease | DX: I48.92 Unspecified atrial flutter (principal); I50.9 Heart failure, unspecified | CPT/HCPCS: 93010; 99223; 99232 ==

== ENCOUNTER 2023-04-14 15:34 | Outpatient (AMB) | payer OTHER, SELFPAY ==
[2023-04-14 15:41] VITALS: BP 142/86; PULSE 75; BMI 50.4
--- NOTE | 2023-04-14 15:41 | MHC.OFFVIS ---
Intake Vital Signs 04/14/23 15:41 Height 5 ft 1 in Weight 266 lb 12.149 oz BMI 50.4 BP 142/86 H Blood Pressure Location Lt brachial Position Sitting Pulse 75 Pulse Source Monitor Intake Visit Reasons: follow up Intake Note: Follow up with EKG. Decorative Cutting Machine Tender Required: Yes Decorative Cutting Machine Tender Language: Rn Maternal Child Name: Jennifer Guerra Accompanied by: Grand Child Allergies morphine Allergy (Unknown, Verified 04/14/23 15:45) rash Motrin Allergy (Unknown, Uncoded 04/14/23 15:45) stomach upset Medication List - Last Reconciled 04/14/23 by Nathaniel Peña MD albuterol sulfate 90 mcg/actuation (ProAir HFA) 2 puffs inhalation Q6H PRN apixaban (Eliquis) 5 mg PO BID digoxin 0.125 mg PO Q2D metoprolol succinate ER (Toprol XL) 100 mg PO DAILY omeprazole 20 mg PO DAILY phenytoin sodium extended (Dilantin Extended) 100 mg PO TID propranolol ER 120 mg PO DAILY quetiapine 100 mg PO DAILY topiramate 50 mg PO DAILY HPI HPI Comments History of Present Illness Details Pleasant 63-year-old female who was seen in the hospital for atrial flutter and mild congestive heart failure. Echocardiography showed borderline RV dysfunction but left ventricular function and wall motion was normal. She was started on apixaban, Toprol-XL 100 mg and digoxin every other day. After rate control she was discharged back home. Our plan was to do outpatient cardioversion. Today she returns for follow-up. EKG in the office showing sinus rhythm. She is denying any palpitations or chest discomfort. Blood pressure control is okay. She is taking digoxin, Toprol-XL 100 mg daily and was previously on propanolol extended release 120 mg daily which was also continued at discharge from hospital. She takes propranolol for migraine headaches. No bleeding concerns. [facility], [facility] Medical History (Updated 03/22/23 @ 00:02 by Bharat Greenwood) Gastritis GERD (gastroesophageal reflux disease) History of stroke Morbid obesity Nicotine dependence Seizure disorder Surgical History (Updated 04/14/23 @ 15:46 by PARISH Magana) History of cholecystectomy History of hernia surgery History of tubal ligation Social History (Updated 04/14/23 @ 15:46 by PARISH Magana) Household Members: Family Housing: Apartment Alcohol intake: never Patient Tobacco Use Status: Former Tobacco user Quit Date: 2022 Cigarette Packs Per Day: 0.5 Years Smoked: 25 +/- service: No Review of Systems Const Denies weakness ENT Denies dizziness Card Denies chest pain, Denies chest pain with activity, Denies syncope, Denies rapid heart rate, Denies pedal edema, Denies edema, Denies leg edema, Denies lightheadedness, Denies palpitations, Denies dyspnea, Denies dyspnea on exertion and Denies orthopnea Resp Denies cough, Denies dyspnea and Denies dyspnea on exertion GI Denies hematochezia and Denies change in stool character Musc Denies abnormal gait, Denies muscle cramps, Denies muscle weakness, Denies numbness, Denies radiating pain into limb and Denies tingling Neuro Denies abnormal gait, Denies dizziness, Denies syncope, Denies numbness, Denies tingling and Denies weakness Endo Denies palpitations Physical Exam Vital Signs: Last Vital Signs Pulse 75 04/14/23 15:41 BP 142/86 H 04/14/23 15:41 BMI result Body Mass Index 50.4 GENERAL APPEARANCE: in no acute distress, pleasant. Morbidly obese. NECK: no carotid bruit, no jugular venous distention. SKIN: no suspicious lesions, warm and dry. HEART: no murmurs, regular rate and rhythm. LUNGS: clear to auscultation bilaterally. ABDOMEN: soft, nontender. EXTREMITIES: no edema. PERIPHERAL PULSES: equal. NEUROLOGIC: No gross deficits, AAO X 3 Office Procedures EKG Details: Sinus rhythm with heart rate 75 beats per minute, normal axis, QTC 460 milliseconds. [id number], Complete Assessment & Plan Assessment & Plan (1) Atrial flutter: Code(s): I48.92 - Unspecified atrial flutter Plan Pleasant 3-year-old female who is here for follow-up. She has background of atrial flutter and mild congestive heart failure. She was seen in the hospital and was treated with rate control strategy but on follow-up in the office she is back in sinus rhythm. She is on apixaban for anticoagulation. Interestingly she is taking phenytoin also which has interaction with apixaban and being and enzyme inducer phenytoin can lead to metabolism of apixaban and lower therapeutic effect. Phenytoin also interacts with Xarelto and Pradaxa. I think phenytoin needs to be substituted. Otherwise she will have low therapeutic effect and has stroke risk. Stopping the digoxin. Continue the Toprol-XL along with propanolol extended release. Heart rates are well controlled and I think her beta-blockers should not be titrated further. As mentioned she was taking propanolol previously for migraines. Thank you for allowing me to participate in the care of your patient. Please feel free to contact me if you have any questions. Medications: Refilled metoprolol succinate ER (Toprol XL) 100 mg PO DAILY 90 tabs 3RF apixaban (Eliquis) 5 mg PO BID 100 tabs 3RF Discontinued digoxin Discontinued Reason: Doctor's Order 0.125 mg PO Q2D 15 tabs 0RF Coding Level of Care Code Est Pt Level 4 (77185) Diagnoses Atrial flutter I48.92 CPT Codes EKG - CPT: 56748-[id number], Complete ([id number])
== END 2023-04-14 15:59 | disposition home or self-care (01) ==
PROVIDERS: PCP Family Medicine; Referring Provider Family Medicine; Visit Provider Internal Medicine Cardiovascular Disease
DX: I48.92 Unspecified atrial flutter (principal)
CPT/HCPCS: 93010; 99214

== ENCOUNTER → 2023-04-14 15:34 | Outpatient (BNVA) | payer OTHER, SELFPAY | PROVIDERS: PCP Family Medicine; Referring Provider Family Medicine; Visit Provider Internal Medicine Cardiovascular Disease | DX: I48.92 Unspecified atrial flutter (principal); E66.01 Morbid (severe) obesity due to excess calories; Z68.43 Body mass index [BMI] 50.0-59.9, adult | CPT/HCPCS: 93005; 99212 ==

== ENCOUNTER 2025-06-06 16:21 | Inpatient (IN) | payer OTHER, SELFPAY ==
--- NOTE | ~2025-06-06 | XR_ITS ---
EXAMINATION: XR SHOULDER, RIGHT CLINICAL INFORMATION: pain COMPARISON: 06/07/2025. TECHNIQUE: Three views of the right shoulder. FINDINGS: Normal bone mineralization. No fracture, dislocation, or suspicious bone lesion. Normal alignment. The glenohumeral joint demonstrates mild to moderate degenerative arthrosis. The AC joint demonstrates moderate superior and undersurface spurring. There is a type I acromion. No undersurface spurring. The subacromial space is minimally narrowed. Remainder of the soft tissue and bony structures appear normal. XR/XR shoulder RT min 2V IMPRESSION: 1. No acute bony or soft tissue abnormalities. 2. Mild to moderate degenerative arthritis of the glenohumeral joint and AC joint. 3. No interval change when compared with 06/07/2025. Electronically signed by: Nabil Felton MD 06/13/2025 10:08 AM EDT
--- NOTE | ~2025-06-06 | CT_ITS ---
CLINICAL HISTORY: trauma ( fell, elevated inr ? on coumadin) INR 17 CT cervical spine without contrast Comparison: None available Findings: Mild multilevel anterolisthesis, degenerative. No fracture. No severe central spinal canal stenosis. No epidural hematoma. Normal thickness of the prevertebral soft tissues. The lung apices are clear. Impression: No acute findings. This document has been electronically signed by: Brittany Mendoza MD on 06/06/2025 20:52:51
--- NOTE | ~2025-06-06 | CT_ITS ---
CLINICAL HISTORY: trauma ( fell, elevated inr ? on coumadin) INR 17 CT chest with contrast Comparison: None provided Findings: The heart is normal size. The visualized thyroid and mediastinum are unremarkable. No consolidation or effusion. Left posterior diaphragmatic Bochdalek deck hernia with peritoneal fat, 3.9 cm in diameter. Hepatic steatosis. Prior cholecystectomy. No acute fractures. IMPRESSION: 1. Left posterior diaphragmatic Bochdalek hernia with peritoneal fat, 3.9 cm in diameter. 2. Hepatic steatosis. 3. Status post prior cholecystectomy. 4. No acute intrathoracic findings. This document has been electronically signed by: Esau Davila MD on 06/06/2025 20:57:17
--- NOTE | ~2025-06-06 | CT_ITS ---
CLINICAL HISTORY: trauma ( fell, elevated inr ? on coumadin) INR 17 CT abdomen and pelvis with contrast Comparison: CT - CT ABDOMEN PELVIS W IV CON - 06/06/25 19:50 EDT Findings: Small paraesophageal hernia. Prior cholecystectomy. Hepatic steatosis. Bilateral perinephric stranding. The pancreas is mildly atrophic. No bowel obstruction, pneumoperitoneum, or pneumatosis. Mild calcified atherosclerotic disease of the abdominal aorta. The appendix is within normal limits. Diverticulosis. The uterus is moderately atrophic. Moderate osteopenia. IMPRESSION: 1. Small paraesophageal hernia. 2. Bilateral perinephric stranding; acute pyelonephritis can not be excluded.. 3. Hepatic steatosis. 4. Diverticulosis. This document has been electronically signed by: Esau Davila MD on 06/06/2025 20:57:34
--- NOTE | ~2025-06-06 | XR_ITS ---
EXAMINATION: XR SHOULDER 2 OR MORE VIEWS RIGHT HISTORY: s/p fall now reporting pain COMPARISON: There are no prior studies available for comparison. FINDINGS: Three views of the right shoulder are submitted. Osseous mineralization is normal. There is no fracture or dislocation. The glenohumeral joint is maintained. There is mild narrowing of the AC joint. The soft tissues are unremarkable. XR/XR shoulder RT min 2V IMPRESSION: Mild narrowing of the AC joint. No evidence of fracture of the right shoulder. Electronically signed by: Cal Rocha MD 06/07/2025 07:50 AM EDT
--- NOTE | ~2025-06-06 | CT_ITS ---
CLINICAL HISTORY: fall, head strike, on anti-coagulant medications CT head without contrast Comparison: 03/12/23 Findings: No acute hemorrhage. No extra-axial fluid collection. No hydrocephalus, mass-effect or herniation. Francisco-white differentiation is maintained. White matter is within normal limits for age. No acute orbital pathology. No acute soft tissue abnormality. 1.8 x 2.4 cm lesion in the right parotid gland, unchanged. No fracture. The visualized paranasal sinuses are predominantly clear. The mastoid air cells are clear. Impression: No acute findings. Stable right parotid lesion, likely benign. 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 Characterize further with nonemergent MR with and without contrast. This document has been electronically signed by: Brittany Mendoza MD on 06/06/2025 17:26:33
[2025-06-06 16:24] VITALS: BP 152/65; PULSE 90; RESP 16; TEMP 36.5; O2SAT 95; BMI 50.0
--- NOTE | 2025-06-06 16:32 | ED.GENADULT ---
HPI - General Adult General Chief complaint: Fall Stated complaint: BLOOD IN URINE Time Seen by Provider: 06/06/25 17:41 History of Present Illness HPI narrative: Patient is a 65-year-old female status post accidental fall from bed on June 02. Question head strike. No loss of consciousness no nausea no vomiting. Patient on blood thinner but is not sure which. Complaining of right-sided abdominal pain. Radiating to the flank area. Noticed some blood in the urine. Patient from home. Came in for further evaluation. No history of kidney stone. Positive history of atrial flutter. No chest pain or diaphoresis. No focal weakness. Related Data Home Medications ?Medication ?Instructions ?Recorded ?Confirmed albuterol sulfate 90 mcg/actuation 2 puff inhalation Q6H PRN 03/12/23 04/14/23 aerosol inhaler (ProAir HFA) Shortness Of Breath omeprazole 20 mg capsule,delayed 20 mg PO DAILY 03/12/23 04/14/23 release phenytoin sodium extended 100 mg 100 mg PO TID 03/12/23 04/14/23 capsule (Dilantin Extended) propranolol 120 mg capsule,24 120 mg PO DAILY 03/12/23 04/14/23 hr,extended release quetiapine 100 mg tablet 100 mg PO DAILY 03/12/23 04/14/23 topiramate 50 mg tablet 50 mg PO DAILY 03/12/23 04/14/23 Previous Rx's ?Medication ?Instructions ?Recorded apixaban 5 mg tablet (Eliquis) 5 mg PO BID #100 tabs 04/14/23 metoprolol succinate 100 mg 100 mg PO DAILY #90 tabs 04/14/23 tablet,extended release 24 hr (Toprol XL) Allergies Allergy/AdvReac Type Severity Reaction Status Date / Time morphine Allergy Unknown rash Verified 06/06/25 16:32 Motrin Allergy Unknown stomach Uncoded 04/14/23 15:45 upset Review of Systems Review of Systems: Positive right-sided abdominal pain Yes all other systems are reviewed and are negative PMFSH Past Medical History Attestation statement: The following information was validated with the patient. Medical History Nicotine dependence History of stroke Gastritis GERD (gastroesophageal reflux disease) Morbid obesity Seizure disorder Surgical History History of cholecystectomy History of hernia surgery History of tubal ligation Social History Social History Household Members: Family Housing: Apartment Alcohol intake: never Patient Tobacco Use Status: Former Tobacco user Cigarette Packs Per Day: 0.5 Years Smoked: 25 +/- Smoked in Last 30 Days: No Use of substances other than those prescribed or required for medical reasons: No Advance Directives: Yes Advance Directives on File: Yes Advance Directives Date on File: 03/17/23 Do you have a plan to hurt others: No Plan service: No Physical Exam ED Exam Exam: Appearance: Alert. Oriented X3. No acute distress. Eyes: Pupils equal, round and reactive to light. ENT: Pharynx normal. Neck: Normal inspection. Neck supple. No lymph nodes noted. No crepitus CVS: Normal heart rate and rhythm. Pulses normal. Normal S1 and S2 Respiratory: No respiratory distress. Breath sounds normal. No Wheezing. No rales Abdomen: Soft and nontender. No rigidity. No distention. good BS x4 Skin: Skin warm and dry. Normal skin color. Normal skin turgor. Extremities: No lower extremity edema. Neurovascular intact to all extremities. No Lacerations. No Rash Neuro: Oriented X 3. No motor deficit. No sensory deficit. Moving all extermities. No slurred speech Vital Signs: Vital Signs - 24 hr 06/06/25 16:24 06/06/25 18:00 06/06/25 18:01 Temperature 97.7 F 97.9 F 97.9 F Pulse Rate 90 79 79 Respiratory Rate 16 15 15 Blood Pressure 152/65 H 153/60 H 153/60 H Pulse Oximetry 95 96 96 Oxygen Delivery Method Room Air Room Air 06/06/25 21:15 Temperature Pulse Rate 67 Respiratory Rate 16 Blood Pressure 110/38 L Pulse Oximetry 96 Oxygen Delivery Method Room Air BMI result Body Mass Index 50.0 Course Course Course Narrative: Rapid medical examination performed in triage by Ondina Bear PA-C. Patient is a 65 year old assigned female at presenting to the emergency department with blood in urine after a fall. Patient states that she fell down and hit her head a few days ago and now she is having blood in her urine. Detailed physical exam and review of systems are deferred to the water system operator. Labs and imaging ordered. Patient placed back in the waiting room pending room availability and results. Patient's niece states that the patient is on Coumadin and needs to have her INR checked. States that the patient does the majority of her care at [facility]. Medications Administered Discontinued Medications Generic Name Dose Route Start Last Admin Trade Name Sandy PRN Reason Stop Dose Admin Hydromorphone HCl 0.5 mg 06/06/25 20:25 06/06/25 21:05 Hydromorphone Hcl 0.5 Mg/0.5 Ml Syringe IVPUSH 06/06/25 20:26 0.5 mg ONCE ONE Administration Protocol Iohexol 100 ml 06/06/25 20:06 06/06/25 20:06 Iohexol 350 Mg/Ml 100 Ml Infus..Btl IV 06/06/25 20:07 100 ml ONCE ONE Administration Lorazepam 0.5 mg 06/06/25 18:43 06/06/25 18:48 Lorazepam 0.5 Mg Tablet PO 06/06/25 18:44 0.5 mg ONCE ONE Administration Ondansetron HCl 4 mg 06/06/25 20:25 06/06/25 21:05 Ondansetron Hcl 4 Mg/2 Ml Vial IVPUSH 06/06/25 20:26 4 mg ONCE ONE Administration Phenytoin Sodium 100 mg 06/06/25 18:43 06/06/25 18:48 Phenytoin Sodium Extended 100 Mg Capsule PO 06/06/25 18:44 100 mg ONCE ONE Administration Phytonadione 2.5 mg 06/06/25 21:13 06/06/25 21:46 Phytonadione (Vit K1) Oral 10 Mg/Ml Ampul PO 06/06/25 21:14 2.5 mg ONCE ONE Administration Medical Decision Making Medical Decision Making MDM Narrative: Positive all likely accidental happened 4 days ago. However patient is on a blood thinner. I went through patient's record was previously on Eliquis. Question if patient's Dilantin was interacting with Pradaxa, Xarelto. Patient is not sure which blood thinner she is on. Her labs showed an elevated INR of 17. Luckily her hemoglobin currently in stable we got a 12.[address] in the emergency department. CT scan of the head by my interpretation was grossly negative I reviewed radiology's reading which was negative. Because of the elevated INR of the fact that she fell will get CT of the C-spine CT chest abdomen pelvis especially when patient has bloody urine and also right-sided abdominal pain. Can not exclude the possibility of mass. Can not exclude the possibility of kidney stones. Will likely require admission. Differential Diagnosis Differential Diagnoses: The differential diagnosis associated with the presentation includes Intra-abdominal bleeding. Intracranial bleeding. Urinary tract infection. Admission/Observation Consideration of admission/observation: Escalation of care including admission/observation considered Consult Healthcare Provider Management of the patient was discussed with: Hospitalist (Consulted hospitalist for admission) Lab Data MDM Lab Attestation statement: I reviewed the patient's lab results. 06/06/25 16:42 06/06/25 16:42 Labs: Lab Results 06/06/25 06/06/25 06/06/25 Range/Units 16:42 18:04 18:51 WBC 6.4 (4.8-10.8) X10*3/uL RBC 4.18 L (4.20-5.50) X10*6/uL Hgb 12.7 (12.0-16.0) g/dl Hct 40.3 (37.0-47.0) % MCV 96.4 (80.0-98.0) fL MCH 30.4 (27.0-33.0) pg MCHC 31.5 (31.0-35.0) g/dl RDW 14.0 (11.0-16.0) % Plt Count 151 L (160-400) X10*3/uL MPV 10.8 (9.4-12.3) fL Immature Gran % (Auto) 0.2 (0.0-0.4) % Neut % (Auto) 47.5 (45-73) % Lymph % (Auto) 37.0 (20-40) % [place] % (Auto) 11.0 (2-11) % Eos % (Auto) 3.7 (0-4) % Baso % (Auto) 0.6 (0-2) % Lymph # (Auto) 2.4 (1.2-4.9) X10*3/uL [place] # (Auto) 0.7 (0.1-1.2) X10*3/uL Eos # (Auto) 0.2 (0.0-0.4) X10*3/uL Baso # (Auto) 0.0 (0.0-0.2) X10*3/uL Abs Immat Gran (auto) 0.01 (0.00-0.03) X10*3/uL Absolute Neuts (auto) 3.1 (2.0-8.3) x10*3/uL Absolute Nucleated RBC 0.000 (0.0-0.012) X10*3/uL Nucleated RBC % (auto) 0.0 (0.0-0.2) /100WBC PT 199.2 H 206.0 H (10.9-12.4) SEC INR 17.3 H* D 17.9 H* (0.9-1.1) Sodium 146 H (135-145) mmol/L Potassium 4.7 (3.3-5.1) mmol/L Chloride 110 H (96-108) mmol/L Carbon Dioxide 29 (22-29) mmol/L Anion Gap 12 (12-20) BUN 19 H (9-16) mg/dL Creatinine 0.97 (0.5-1.4) mg/dL Estim Creat Clear Calc 72.7 Estimated GFR 58 Random Glucose 123 H (60-115) mg/dL Lactic Acid (0.5-2.0) mmol/L Calcium 8.4 (8.4-10.2) mg/dL Magnesium 2.0 (1.6-2.6) mg/dL Total Bilirubin 0.3 (0.0-1.0) mg/dL AST 23 (5-31) U/L ALT 11 (0-31) U/L Alkaline Phosphatase 124 H (39-117) U/L Total Protein 6.9 (6.5-8.0) g/dL Albumin 3.6 (3.5-5.0) g/dL Urine Color RED Urine Appearance Turbid Urine pH 7.0 (5.0-9.0) Ur Specific [place] 1.010 (1.005-1.025) Urine Protein 300 (3+) H (Neg-Trace) mg/dL Urine Glucose (UA) 100 H (Negative) mg/dL Urine Ketones 15 (Negative) mg/dL Urine Blood Large (3+) H (Negative) Urine Nitrite Positive H (Negative) Ur Leukocyte Esterase Moderate (2+) H (Negative) Urine RBC >20 H (0-2) /HPF Urine WBC 6-10 (0-5) /HPF Ur Squamous Epith Cells 6-10 (0-2) /HPF Urine Bacteria 2+ (None Seen) Hyaline Casts 0-2 (0-2) /LPF Blood Type O Positive Antibody Screen NEGATIVE 06/06/25 Range/Units 18:52 WBC (4.8-10.8) X10*3/uL RBC (4.20-5.50) X10*6/uL Hgb (12.0-16.0) g/dl Hct (37.0-47.0) % MCV (80.0-98.0) fL MCH (27.0-33.0) pg MCHC (31.0-35.0) g/dl RDW (11.0-16.0) % Plt Count (160-400) X10*3/uL MPV (9.4-12.3) fL Immature Gran % (Auto) (0.0-0.4) % Neut % (Auto) (45-73) % Lymph % (Auto) (20-40) % [place] % (Auto) (2-11) % Eos % (Auto) (0-4) % Baso % (Auto) (0-2) % Lymph # (Auto) (1.2-4.9) X10*3/uL [place] # (Auto) (0.1-1.2) X10*3/uL Eos # (Auto) (0.0-0.4) X10*3/uL Baso # (Auto) (0.0-0.2) X10*3/uL Abs Immat Gran (auto) (0.00-0.03) X10*3/uL Absolute Neuts (auto) (2.0-8.3) x10*3/uL Absolute Nucleated RBC (0.0-0.012) X10*3/uL Nucleated RBC % (auto) (0.0-0.2) /100WBC PT (10.9-12.4) SEC INR (0.9-1.1) Sodium (135-145) mmol/L Potassium (3.3-5.1) mmol/L Chloride (96-108) mmol/L Carbon Dioxide (22-29) mmol/L Anion Gap (12-20) BUN (9-16) mg/dL Creatinine (0.5-1.4) mg/dL Estim Creat Clear Calc Estimated GFR Random Glucose (60-115) mg/dL Lactic Acid 0.9 (0.5-2.0) mmol/L Calcium (8.4-10.2) mg/dL Magnesium (1.6-2.6) mg/dL Total Bilirubin (0.0-1.0) mg/dL AST (5-31) U/L ALT (0-31) U/L Alkaline Phosphatase (39-117) U/L Total Protein (6.5-8.0) g/dL Albumin (3.5-5.0) g/dL Urine Color Urine Appearance Urine pH (5.0-9.0) Ur Specific [place] (1.005-1.025) Urine Protein (Neg-Trace) mg/dL Urine Glucose (UA) (Negative) mg/dL Urine Ketones (Negative) mg/dL Urine Blood (Negative) Urine Nitrite (Negative) Ur Leukocyte Esterase (Negative) Urine RBC (0-2) /HPF Urine WBC (0-5) /HPF Ur Squamous Epith Cells (0-2) /HPF Urine Bacteria (None Seen) Hyaline Casts (0-2) /LPF Blood Type Antibody Screen Independent Interpretation I performed an independent interpretation of an: CT Scan (CT head grossly negative) Radiology Impression Discussion of test interpretation with radiology: I have reviewed the radiologist's reading. External Record Review External record reviewed: Office record Chronic Conditions Atrial fibrillation Social Determinants Patient?s care significantly limited by Social Determinants of Health including: Problems related to primary support group Critical Care Time Critical Care Time Critical Care Time: Yes Total Critical Care Time: 40 Attestation: I have personally provided 40 minutes of critical care time exclusive of time spent on separately billable procedures. ?Time includes review of lab data, radiology results, discussion with consultants, and monitoring for potential decompensation. ?Interventions were performed as documented above Discharge Plan Discharge Clinical Impression: Urinary tract infection, Elevated INR Patient Disposition: Admitted As Inpatient
[2025-06-06 16:47] LABS: MANUAL DIFF FLAG NO
[2025-06-06 16:50] LABS: Hematocrit 40.3 % (37.0-47.0); Hemoglobin 12.7 g/dl (12.0-16.0); Imm Gran Abs Auto 0.01 X10*3/uL (0.00-0.03); Imm Gran Pct Auto 0.2 % (0.0-0.4); Lymphocytes Absolute Auto 2.4 X10*3/uL (1.2-4.9); Mean Corpuscular HGB Conc 31.5 g/dl (31.0-35.0); Mean Corpuscular Hemoglobin 30.4 pg (27.0-33.0); Mean Corpuscular Volume 96.4 fL (80.0-98.0); NRBC Abs Auto 0.000 X10*3/uL (0.0-0.012); NRBC Pct Auto 0.0 /100WBC (0.0-0.2); Platelet Count 151 X10*3/uL (160-400); Red Blood Count 4.18 X10*6/uL (4.20-5.50); White Blood Count 6.4 X10*3/uL (4.8-10.8)
[2025-06-06 17:04] LABS: Alanine Aminotransferase 11 U/L (0-31); Albumin Level 3.6 g/dL (3.5-5.0); Alkaline Phosphatase 124 U/L (39-117); Anion Gap 12 (12-20); Aspartate Amino Transferase 23 U/L (5-31); Blood Urea Nitrogen 19 mg/dL (9-16); Calcium 8.4 mg/dL (8.4-10.2); Carbon Dioxide 29 mmol/L (22-29); Chloride 110 mmol/L (96-108); Creatinine Clr Calc Pharmacy 72.7; Estimated Glomerular Filt Rate 58; Magnesium 2.0 mg/dL (1.6-2.6); Potassium 4.7 mmol/L (3.3-5.1); Sodium 146 mmol/L (135-145); Total Protein 6.9 g/dL (6.5-8.0)
[2025-06-06 17:08] LABS: Prothrombin Time 199.2 SEC (10.9-12.4)
[2025-06-06 17:31] LABS: INTERNATIONAL NORM RATIO 17.3 (0.9-1.1)
--- NOTE | 2025-06-06 17:48 | PC.NURSE ---
65 F had a fall on 06/02 and has had bright red blood in urine, complaint of abdominal pain that moves to the back, 04/03 pain. Pt denies any CP or SOB. A+OX4, anxious, cooperative. Pt was able to stand and pivot from wheelchair to bed. Pt is on coumadin. RR even and unlabored, no visible s/s of distress.
[2025-06-06 18:00] VITALS: BP 153/60; PULSE 79; RESP 15; TEMP 36.6; O2SAT 96
[2025-06-06 18:01] VITALS: BP 153/60; PULSE 79; RESP 15; TEMP 36.6; O2SAT 96
--- OUTSIDE RECORDS SUMMARY | 2025-06-06 18:08 | XMS_ITS | Clinical Summary ---
Author Organization [employer] Address [address] [facility] [address] [place] [address] Care Team Providers Care Contract Sheltered Workshop Supervisor Name Role Phone Court Giron Primary Care Provider [phone] Allergies Active Allergy Reactions Criticality Noted Date Comments Ibuprofen 09/09/2022 Other reaction(s): upset Stomach Morphine 09/09/2022 Other reaction(s): Hives Shrimp (Diagnostic) 09/09/2022 Other reaction(s): hives Medications acetaminophen (Tylenol) 500 MG tablet TAKE 1 TABLET BY MOUTH EVERY 6 HOURS NEEDED KNEE PAIN for 23 Active propranolol XL (Innopran XL) 120 MG 24 hr capsule DIRECTED EVERY DAY for 90 Active sertraline (Zoloft) 50 MG tablet TAKE 1 TABLET BY MOUTH EVERY DAY for 90 Active topiramate 50 MG tablet TAKE 1 TABLET BY MOUTH EVERY DAY for 90 Active omeprazole (PriLOSEC) [address] capsule TAKE 1 CAPSULE BY MOUTH EVERY DAY for 90 day(s) Active phenytoin ER (Dilantin) 100 MG capsule 1 capsule in the morning and 1 capsule at noon and 1 capsule in the evening. Active Varenicline Tartrate, Starter, (Chantix Starting Month ) 0.5 MG X 11 & 1 MG X 42 tablet therapy pack daily. 02/09/2021 Active SUMAtriptan (Imitrex) 25 MG tablet daily. 12/17/2019 Active fluticasone-nasrin meterol (AirDuo RespiClick 113/14) 113-14 MCG/ACT inhaler 1 puff in the morning and 1 puff in the evening. 07/14/2020 Active albuterol (ProAir HFA) 108 (90 Base) MCG/ACT inhaler INHALE 2 PUFFS BY MOUTH 4 TIMES A DAY DIRECTED for 25 Active Melatonin 10 MG capsule TAKE 1 CAPSULE BY MOUTH EVERY EVENING for 90 Active QUEtiapine (SEROquel) 100 MG tablet TAKE 1 TABLET BY MOUTH EVERY DAY AT BEDTIME FOR 90 DAYS for 90 30 tablet 3 03/22/2023 Active phenytoin ER (Dilantin) 100 MG capsule TAKE 1 CAPSULE BY MOUTH THREE TIMES A DAY 270 capsule 3 09/25/2023 Active Active Problems Problem Noted Date Diagnosed Date Anxiety 09/09/2022 Chronic gastritis without bleeding 09/09/2022 Chronic pain 09/09/2022 Gastroesophageal reflux disease without esophagi tis 09/09/2022 Lactose intolerance 09/09/2022 Mild intermittent asthma 09/09/2022 Morbid (severe) obesity due to excess calories ( [facility]) 09/09/2022 Morbidly obese ([facility]) 09/09/2022 Primary insomnia 09/09/2022 Psychophysiological insomnia 09/09/2022 Migraine with aura 09/09/2022 Seizure disorder ([facility]) 09/09/2022 Symptomatic cholelithiasis 07/23/2017 Biliary colic 07/21/2017 Nausea and vomiting 07/21/2017 Immunizations Immunization Administration Dates Next Due Moderna Covid-19 Vaccine 12+ 02/02/2021,01/06/20 21 PPD Test 12/15/2017 Pneumococcal Polysaccharide PPSV23 07/19/2015 Tdap 07/19/2015 Family History Medical History Relation Name Comments Cancer Father Depression Mother Diabetes Mother Heart disease Mother Relation Name Status Comments Brother 1 Alive Brother 2 Alive Daughter 1 Alive Daughter 2 Alive Father Mother Alive Sister 1 Alive Sister 2 Alive Sister 3 Alive Sister 4 Alive Son 1 Alive Son 2 Alive Social History Tobacco Use Types Packs/Day Years Used Date Smoking Tobacco: Never Assessed Comments Unknown Sex and Gender Information Value Date Recorded Sex Assigned at Female 12/23/2022 12:10 PM EDT Legal Sex Female 7:48 PM EDT Gender Identity Female 12/23/2022 12:10 PM EDT Sexual Orientation Straight 06/21/2022 7: 48 PM EDT Last Filed Vital Signs Vital Sign Reading Time Taken Comments Blood Pressure 126/85 02/09/2021 12:06 AM EDT Pulse 67 02/09/2021 12:06 AM EDT Temperature - - Respiratory Rate - - Oxygen Saturation - - Inhaled Oxygen Concentration - - Weight 115 kg (254 lb 9.6 oz) 02/09/2021 12:06 A M EDT Height 149.9 cm (4' 11 ) 02/09/2021 12:06 AM EDT Body Mass Index 51.42 02/09/2021 12:06 AM EDT Plan of Treatment Health Maintenance Due Date Last Done Comments CT Colonography 1960 Colonoscopy 1960 Colorectal Cancer Screening 1960 Depression Screening 1960 FIT DNA/Cologuard 1960 FIT 1960 FOBT 1960 Lipid Panel 1960 SDOH Screening 1960 Sigmoidoscopy 1960 Alcohol/Substance Use Screening 1972 Tobacco Screening 1972 Hepatitis C Screening 1978 Mammogram 2000 Zoster Vaccines (1 of 2) 2010 Pneumococcal Vaccine: 50+ Years (2 of 2 - PCV) 07/19/2016 07/19/2015 RSV Patients and Patients Aged 60 years or older (1 - Risk 60-74 years 1-dose series) 2020 Pap Smear 06/21/2022 06/21/2019 Cervical Cancer Screening 06/21/2024 HPV/Cotest 06/21/2024 06/21/2019, 04/15/2018 COVID-19 Vaccine (3 - 2024-2 6 season) 2025 02/02/2021, 01/05/2021 Influenza Vaccine (#1) 2025 DTaP/Tdap/Td Vaccines (2 - T d or Tdap) 07/19/2025 07/19/2015 HIB Vaccines Aged Out No longer eligi ble based on patient's age to complete this topic HPV Vaccines Aged Out No longer eligi ble based on patient's age to complete this topic Hepatitis A Vaccines Aged Out No long er eligible based on patient's age to complete this topic Hepatitis B Vaccines Aged Out No long er eligible based on patient's age to complete this topic IPV Vaccines Aged Out No longer eligi ble based on patient's age to complete this topic Meningococcal B Vaccine Aged Out No l onger eligible based on patient's age to complete this topic Meningococcal Vaccine Aged Out No kezia chai eligible based on patient's age to complete this topic RSV under 20 months Aged Out No longe r eligible based on patient's age to complete this topic Rotavirus Vaccines Aged Out No longer eligible based on patient's age to complete this topic Procedures Procedure Name Priority Date/Time Associated Diagnosis Comments HPV DNA PROBE, AMPLIFIED Routine 06/21/2019 9:49 PM EDT LIQUID-BASED PAP TEST Routine 06/21/2019 9:49 PM EDT from Last 3 Months or Most Recently Relevant to Health Maintenance Results * (ABNORMAL) Liquid-based Pap (06/21/2019 9:49 PM EDT) Other Findings PLEASE REFER TO THE SEPARATE REPORT FOR THE HPV RESULT [facility] CYTOLOGY CVX/VAG DOC CYTO ATYPICAL SQUAMOUS CELLS OF UNDETERMINED SIGNIFICANCE(A) [facility] Clinical Information without abnormal findings [facility] SH LAB AP WEAPONS OFFICER SPECIMEN ADEQUACY Satisfactory for evaluation, endocervical/gonzalez sformation zone component absent [facility] Other Findings ORGANISMS CONSISTENT WITH TRICHOMONAS VAGINALIS [facility] CYTOLOGY CVX/VAG DOC CYTO (A) [facility] LAB AP EMBEDDED IMAGES [facility] Additional Information Pap test findings. [facility] Other Findings SHIFT IN OTTO SUGGESTIVE OF BACTERIAL VAGINOSIS [facility] Additional Information [facility] LAB AP CASE REPORT Gynecologic Cytology Case: [id number] [facility] Additional Information [facility] Other Findings TESTING FOR HIGH-RISK STRAINS OF HPV HAS BEEN REQUESTED ON THIS PATIENT [facility] Additional Information Cpt:42151 [facility] LAB AP CASE REPORT Authorizing Provider: Gloria Leary MD Collected: 06/21/20192148 [facility] HPV REFLEX? HPV High Risk Regardless [facility] LAB AP CASE REPORT Ordering Location: [facility] Received: 06/21/20192148 [facility] Additional Information The Pap test is a generally effective screening test for squamous cervical [facility] LAB AP CASE REPORT Group [facility] Additional Information cancer and its precursors. However, both false negative and false [facility] AP CASE REPORT First Screen: Mattie Davies [facility] Additional Information positive results occur. Results are most reliable when an adequate sample [facility] LAB AP CASE REPORT Pathologist: Freda Girard MD [facility] Additional Information is evaluated on a regular repetitive basis and clinically correlated. [facility] AP CASE REPORT Specimen: Liquid-Based Pap, Screening, Cervix, Cloudy [facility] Additional Information Suspicious signs or symptoms may warrant follow-up studies regardless of [facility] Clinical Information Z01.419 Encounter for gynecological examination (general) (routine) [facility] 06/21/2019 9:49 PM EDT Gloria Leary MD LAB CYTOLOGY ORDERABLES Final Result Performing Organization Address [facility] Co de Phone Number [facility] [address] * HPV DNA XXX Ql Amp Prb (06/21/2019 9:49 PM EDT) HPV18 DNA CVX QL PROBE+SIG AMP Negative Negative [facility] Comment:Testing did not dete ct the presence of high-risk HPV type 18. HPV I/H RISK 1 DNA CVX QL PROBE+SIG AMP Negative Negative [facility] Comment:Testing did not dete ct the presence of high risk HPV types: 31, 33, 35, 39, 45, 51, 52, 56, 58, 59, 66, 68. HPV16 DNA CVX QL PROBE+SIG AMP Negative Negative [facility] Comment:Testing did not dete ct the presence of high-risk HPV type 16. 06/21/2019 9:49 PM EDT Gloria Leary MD LAB MICROBIOLOGY - GENERAL OR DERABLES Final Result Performing Organization Address [facility] de Phone Number [facility] [address] from Last 3 Months or Most Recently Relevant to Health Maintenance Insurance Care Teams Contract Sheltered Workshop Supervisor Relationship Specialty Start Date End Date Court Giron PA [address] [place] [address] PCP - General Physician Inspector [employer] 09/22/24
--- OUTSIDE RECORDS SUMMARY | 2025-06-06 18:08 | XMS_ITS | Encounter Summary ---
Author Organization [employer] Address [address] [facility] 7[address] [place] [address] Care Team Providers Care Shampoo Assistant Name Role Phone [facility] Primary Care Provider Lenora Espino MD Primary Care Provider [phone] Primary Care Provider [phone] Encounter Details Date Type Department Care Team (Late st Contact Info) Description 03/18/2023 Telephone HF [facility] [address] [facility], [address] [place] [address] Deja Corbett LPN Social History Tobacco Use Types Packs/Day Years Used Date Smoking Tobacco: Never Assessed Comments Unknown Sex and Gender Information Value Date Recorded Sex Assigned at Female 12/23/2022 12:10 PM EDT Legal Sex Female 7:48 PM EDT Gender Identity Female 12/23/2022 12:10 PM EDT Sexual Orientation Straight 06/21/2022 7: 48 PM EDT documented as of this encounter Miscellaneous Notes * Telephone Encounter - Deja Corbett LPN - 03/18/2023 11:21 AM EDT Received rx request for omeprazole. Pt has not been seen in clinic since 10/[address] Leary. Please schedule pt an appt with new provider. Ty. documented in this encounter Plan of Treatment Not on file documented as of this encounter Visit Diagnoses Not on filedocumented in this encounter Care Teams Shampoo Assistant Relationship Specialty Start Date End Date Mary Carlson FNP-BC PCP - General 09/07/22 11/23/23 Lenora Bush MD [address] [place] [id number] PCP - General Internal Medicine 11/24/23 09/21/24 Court Giron PA [address] [place] [id number] PCP - General Physician Chainstitch Tunnel Elastic Operator 09/22/24 documented as of this encounter
--- OUTSIDE RECORDS SUMMARY | 2025-06-06 18:08 | XMS_ITS | Clinical Summary ---
Author Organization [employer] [facility] it Address [address] [place] [address] Care Team Providers Care Corpsman Name Role Phone Celestina Hines MD Primary Care Provider [phone] Social History Tobacco Use Types Packs/Day Years Used Date Smoking Tobacco: Never Assessed Comments Unknown Sex and Gender Information Value Date Recorded Sex Assigned at Not on file Legal Sex Female 2:34 PM EST Gender Identity Not on file Sexual Orientation Not on file Plan of Treatment Health Maintenance Due Date Last Done Comments Breast Cancer Screening 1960 Colorectal Cancer Screening: Colonoscopy 1960 Cervical Cancer Screening: P ap Smear 1981 Zoster Vaccines (1 of 2) 2010 Pneumococcal Vaccine: 50+ Ye ars (2 of 2 - PCV) 07/19/2016 07/19/2015 RSV Immunization Adult Patie nts (1 - Risk 60-74 years 1-dose series) 2020 Hepatitis C Screening 06/18/2024 Osteoporosis Screening (Bone Density Screening) 06/18/2024 Social Influencers of Health Screening 06/18/2024 Depression Screening 08/25/2024 Falls Risk Assessment 2025 COVID-19 Vaccine (1 - 2023-2 5 season) 2025 Influenza Vaccine (#1) 2025 DTaP,Tdap,and Td Vaccines (2 - Td or Tdap) 07/19/2025 07/19/2015 HIB Vaccines Aged [...] on patient's age to complete this topic MMR Vaccines Aged Out No longer eligi ble based on patient's age to complete this topic Meningococcal ACWY Vaccine Aged Out N o longer eligible based on patient's age to complete this topic Meningococcal B Vaccine Aged Out No l onger eligible based on patient's age to complete this topic RSV Immunization Patients Un jus 20 months Aged Out No longer eligible b ased on patient's age to complete this topic Varicella Vaccines Aged Out No longer eligible based on patient's age to complete this topic Care Teams Corpsman Relationship Specialty Start Date End Date Celestina Hines MD [address] [place] [address] PCP - General Internal Medicine 11/21/14
[2025-06-06 18:22] LABS: Appearance Urine Turbid; Glucose Urine UA 100 mg/dL (Negative); PH 7.0 (5.0-9.0); Specific Gravity - Urine 1.010 (1.005-1.025); UMIC TRIGGER UACC YES
[2025-06-06 19:15] LABS: Prothrombin Time 206.0 SEC (10.9-12.4)
--- NOTE | 2025-06-06 19:15 | PC.NURSE ---
assumed care of pt at this time. seizure precautions in place d/t history of seizures. pt was medicated with usual dose of dilantin and ativan by previous nurse for seizures/anxiety. patient appears more comfortably now denies feeling anxious. resting comfortably. on ekg monitor sinus rhythm.
[2025-06-06 19:28] LABS: INTERNATIONAL NORM RATIO 17.9 (0.9-1.1)
[2025-06-06 19:33] LABS: UACC Culture Trigger YES
[2025-06-06] MEDS: iohexoL 350 MG/ML 100 ML INFUS..BTL IV (20:06)
--- NOTE | 2025-06-06 20:25 | PC.NURSE ---
MD Ortiz made aware patient is reporting 10/10 R. hip/lower back pain radiating to lower abdomen. attempted to reposition patient however reported increases pain with movement.
[2025-06-06 21:15] VITALS: BP 110/38; PULSE 67; RESP 16; O2SAT 96
--- NOTE | 2025-06-06 21:30 | PC.NURSE ---
spoke with daughter Chyna [phone] per patient permission, states daughter is HCP, daughter wanted an update. states can be called at anytime during the night for further updates/emergencies.
[2025-06-06] MEDS: Phytonadione (Vit K1) Oral 10 MG/ML AMPUL 2.5 MG PO (21:46)
--- NOTE | 2025-06-06 21:46 | PC.NURSE ---
unable to scan vit k vial as was thrown into sharps container prior to scanning. dose was verified prior to administering. 0.25mL PO given as ordered.
--- NOTE | 2025-06-06 23:10 | PC.NURSE ---
gold burnisher at bedside. lucia NAVARRO finished admission assessment. patient medicated per oct. answered all questions regarding plan of care. patient verbalized understanding, also educated she is NPO. call castillo within reach nad.
[2025-06-06] MEDS: 0.9 % Sodium Chloride Flush 3 ML SYRINGE IVFLUSH (23:11)
[2025-06-06 23:12] VITALS: BP 109/61; PULSE 77; RESP 12; TEMP 36.9; O2SAT 94
--- NOTE | 2025-06-06 23:26 | P.HPHOSP_ITS ---
History of Present Illness Date of Service: 06/06/25 Attending physician on admission: Esteban Adair Chief Complaint: fall Compliance Counsel used for interview. Patient is a 65-year-old Amharic- speaking female with past medical history hypertension, asthma, former smoker, AFib recently diagnosed after being seen in [facility] 2 weeks prior and was started on Eliquis and Coumadin, obesity, epilepsy, GERD presents to the emergency department after experiencing a fall on 06/02 including a strike to the head and possible loss of consciousness. Patient then started having vaginal/urinary bleeding yesterday. Patient was seen because the bleeding did not stop. Patient is poor historian. Was able to speak to patient's daughter and she clarified that yes patient was sent home both on Coumadin and Eliquis from [facility]. A nurse was supposed to come by and check patient's INR but this nurse never arrived. Daughter called the office but was not able to leave a message and did not get through to the office to report this. Patient was diagnosed with a fast heart rate while at [facility] and was seen because she was having intermittent chest pain. Patient recently moved from [place] to the [facility] and is now living with her niece. Her daughter is trying to manage her medications and her overall care. Workup in the emergency department included labs which identified on INR at 17.9, confirmed. H&H stable. Lactic acid normal. , UA positive for +3 heme UTI. Patient had a CT of the chest which noted a right parotid lesion which can be worked up as an outpatient via MRI. CT of the abdomen noted a small paraesophageal hernia, acute pyelonephritis, diverticulosis and fatty liver. Patient received vitamin K in the ED. Patient does not require transfusion at this time. Records from [facility] have been requested. Review of Systems 2 Review of Systems: Patient denies any chest pain, currently shortness of breath at rest, nausea/vomiting, abdominal pain, constipation or diarrhea. Patient is having notable bruising especially on the right leg. Patient denies any headache or visual changes. Patient is sometimes reports dry mouth especially at night. Yes all other systems are reviewed and are negative [facility] Medical History Nicotine dependence History of stroke Gastritis GERD (gastroesophageal reflux disease) Morbid obesity Seizure disorder Cognitive capacity: Alert and orientated x3 Functional capacity: wheelchair bound Patient : No Pertinent family history: Mother alive age 79 no specific health problems Father from cancer Surgical History History of cholecystectomy History of hernia surgery History of tubal ligation Social History Household Members: Family Housing: Apartment Alcohol intake: never Patient Tobacco Use Status: Former Tobacco user Cigarette Packs Per Day: 0.5 Years Smoked: 25 +/- Smoked in Last 30 Days: No Use of substances other than those prescribed or required for medical reasons: No Advance Directives: Yes Advance Directives on File: Yes Advance Directives Date on File: 03/17/23 Do you have a plan to hurt others: No Plan Patient : No service: No Meds Allergies Allergy/AdvReac Type Severity Reaction Status Date / Time morphine Allergy Unknown rash Verified 06/06/25 16:32 Motrin Allergy Unknown stomach Uncoded 04/14/23 15:45 upset Active Medications: Current Medications Acetaminophen (Acetaminophen 325 Mg Tablet) 650 mg PO Q6H PRN PRN Reason: Pain, Mild 1-3,fever,headache Albuterol/Ipratropium (Albuterol/Iprat 2.5/0.5mg 3 Ml Ampul.Neb) 3 ml INHALE Q4H PRN PRN Reason: Shortness of Breath/Wheezing Calcium Carbonate (Calcium Carbonate 750 Mg Tab.Chew) 750 mg PO Q4H PRN PRN Reason: Heartburn Magnesium Hydroxide (Milk Of Magnesia 30 Ml Oral.Susp) 30 ml PO DAILY PRN PRN Reason: Constipation Melatonin (Melatonin 3 Mg Tablet) 6 mg PO BEDTIME PRN PRN Reason: Insomnia Ondansetron HCl (Ondansetron Hcl 4 Mg/2 Ml Vial) 4 mg IVPUSH Q8H PRN PRN Reason: Nausea and Vomiting Polyethylene Glycol (Polyethylene Glycol 3350 17 Gm Powd.Pack) 17 gm PO DAILY PRN PRN Reason: Constipation Sodium Chloride (0.9 % Sodium Chloride Flush 3 Ml Syringe) 3 ml IVFLUSH QSHIFT [facility] Last Admin: 06/06/25 23:11 Dose: 3 ml Home Medications ?Medication ?Instructions ?Recorded ?Confirmed ?Last Taken ?Type albuterol sulfate 90 mcg/actuation 2 puff inhalation Q 6H PRN 03/12/23 04/14/23 Unknown History aerosol inhaler (ProAir HFA) Shortness Of Breath omeprazole 20 mg capsule,delayed 20 mg PO DAILY 04/14/23 Unknown History release phenytoin sodium extended 100 mg 100 mg PO TID 3 04/14/23 Unknown History capsule (Dilantin Extended) propranolol 120 mg capsule,24 120 mg PO DAILY 03/12/23 04/14/23 Unknown History hr,extended release quetiapine 100 mg tablet 100 mg PO DAILY 03/12/23 Unknown History topiramate 50 mg tablet 50 mg PO DAILY 03/12/2303/26 Unknown History Physical Exam 2 Vital Signs and Narrative: Vital Signs: Last Vital Signs Temp 98.4 F 06/06/25 23:12 Pulse 77 06/06/25 23:12 Resp 12 06/06/25 23:12 BP 109/61 06/06/25 23:12 Pulse Ox 94 06/06/25 23:12 O2 Del Method Room Air 06/06/25 23:12 BMI result Body Mass Index 50.0 Alert and orientated X3, not able to give good history. Compliance Counsel Neuro: CN II-X11 intact, no deficits, visual acuity intact EYES: PERRLA, EOM intact, sclerae nonicteric, conjunctiva pink ENT: hearing intact, no issues with swallowing, uvula midline, lips moist, nares patent no epistaxis Cardiac: S1 S2 RRR, no murmur, no JVD, mild edema in Lower ext Pulmonary: lungs clear to auscultation B Abdominal: BS active in all 4 quadrants, no guarding, tenderness, rebounding, morbidly obese MSK: strength 3-4/5 upper and lower extremities : no CVA tenderness no bladder distension Extremities: Mild edema in lower extremities, PT and DP pulses palpable +2 Psych: mood stable, judgement and insight fair Skin: Bruising noted over right knee and lower leg Results Labs 06/06/25 16:42 06/06/25 16:42 Labs: Laboratory Results - last 24 hr 06/06/25 06/06/25 06/06/25 16:42 18:04 18:51 MCV 96.4 MCH 30.4 MCHC 31.5 RDW 14.0 Plt Count 151 L MPV 10.8 Immature Gran % (Auto) 0.2 Neut % (Auto) 47.5 Lymph % (Auto) 37.0 [place] % (Auto) 11.0 Eos % (Auto) 3.7 Baso % (Auto) 0.6 Lymph # (Auto) 2.4 [place] # (Auto) 0.7 Eos # (Auto) 0.2 Baso # (Auto) 0.0 Abs Immat Gran (auto) 0.01 Absolute Neuts (auto) 3.1 Absolute Nucleated RBC 0.000 Nucleated RBC % (auto) 0.0 PT 199.2 H 206.0 H INR 17.3 H* D 17.9 H* Anion Gap 12 Estim Creat Clear Calc 72.7 Estimated GFR 58 Random Glucose 123 H Lactic Acid Calcium 8.4 Magnesium 2.0 Total Bilirubin 0.3 AST 23 ALT 11 Alkaline Phosphatase 124 H Total Protein 6.9 Albumin 3.6 Urine Color RED Urine Appearance Turbid Urine pH 7.0 Ur Specific [place] 1.010 Urine Protein 300 (3+) H Urine Glucose (UA) 100 H Urine Ketones 15 Urine Blood Large (3+) H Urine Nitrite Positive H Ur Leukocyte Esterase Moderate (2+) H Urine RBC >20 H Urine WBC 6-10 Ur Squamous Epith Cells 6-10 Urine Bacteria 2+ Hyaline Casts 0-2 Blood Type O Positive Antibody Screen NEGATIVE 06/06/25 18:52 MCV MCH MCHC RDW Plt Count MPV Immature Gran % (Auto) Neut % (Auto) Lymph % (Auto) [place] % (Auto) Eos % (Auto) Baso % (Auto) Lymph # (Auto) [place] # (Auto) Eos # (Auto) Baso # (Auto) Abs Immat Gran (auto) Absolute Neuts (auto) Absolute Nucleated RBC Nucleated RBC % (auto) PT INR Anion Gap Estim Creat Clear Calc Estimated GFR Random Glucose Lactic Acid 0.9 Calcium Magnesium Total Bilirubin AST ALT Alkaline Phosphatase Total Protein Albumin Urine Color Urine Appearance Urine pH Ur Specific [place] Urine Protein Urine Glucose (UA) Urine Ketones Urine Blood Urine Nitrite Ur Leukocyte Esterase Urine RBC Urine WBC Ur Squamous Epith Cells Urine Bacteria Hyaline Casts Blood Type Antibody Screen ECG Attestation: I personally reviewed and interpreted this ECG as follows: Prior ECG tracings: not available for review Imaging Radiologist's Impressions: CT ABD IMPRESSION: 1. Small paraesophageal hernia. 2. Bilateral perinephric stranding; acute pyelonephritis can not be excluded.. 3. Hepatic steatosis. 4. Diverticulosis. CT CHEST IMPRESSION: 1. Left posterior diaphragmatic Bochdalek hernia with peritoneal fat, 3.9 cm in diameter. 2. Hepatic steatosis. 3. Status post prior cholecystectomy. 4. No acute intrathoracic findings. CT HEAD Impression: No acute findings. Stable right parotid lesion, likely benign. 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 Characterize further with nonemergent MR with and without contrast. CT cervical spine No acute findings Assessment and Plan (1) Elevated INR: Status: Acute (2) Urinary tract infection: Qualifiers: Urinary tract infection type: acute pyelonephritis Qualified Code(s): N 10 - Acute pyelonephritis Status: Acute Plan Compliance Counsel used for interview. Patient is a 65-year-old Amharic- speaking female with past medical history hypertension, asthma, former smoker, AFib recently diagnosed after being seen in [facility] 2 weeks prior and was started on Eliquis and Coumadin, obesity, epilepsy, GERD presents to the emergency department after experiencing a fall on 06/02 including a strike to the head and possible loss of consciousness. Patient then started having vaginal/urinary bleeding yesterday. Patient was seen because the bleeding did not stop. INR 17.9. Pt recently discharged from [facility] on both Coumadin and Eliquis, was seen for chest pain and diagnosed with AFib. Elevated INR Confirmed with patient's daughter that patient has been on both Coumadin and Eliquis and has not had any routine INR testing since discharge from [facility] approximately 2 weeks prior for AFib/chest pain Cardiology consulted Vitamin K 2.5 provided in the ED Repeat INR 19.9, Additional dose of Vit k 5.0 provided INR daily Bleeding remains controlled at this time H&H stable not requiring transfuse Holding all anticoagulation UTI/ acute pyelonephritis/ hematuria Patient is started on ceftriaxone IV hydration provided Follow urine culture Hematuria likely from elevated INR, if bleeding from other source i.e. vaginal consider WAREHOUSE INVENTORY CLERK consult, marycruz US AFIB recently dx Pt currently sinus rhythm Telemetry As above for AC, pt was sent home on both eliquis and coumadin with no INR checks since discharge History of epilepsy Continue phenytoin 100 mg t.i.d. once med rec completed, patient did receive 100 mg in the ED Seizure precautions 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 Patient does have report of chronic Follow-up as an outpatient with surgery if indicated Right parotid lesion, pleomorphic adenoma Noted on CT of the chest Follow-up can be done as an outpatient MRI is recommended Diverticulosis Patient currently asymptomatic Avoid foods with seeds including popcorn Hepatic steatosis Chronic condition LFTs normal Patient does not use alcohol regularly DVT prophylaxis: Held due to elevated INR Med rec pending Full code status Quality Stroke Does the patient have a stroke diagnosis?: No Reason for No Anti-thrombotic by Day Two: Contraindicated (Elevated INR) VTE Prior VTE?: No VTE Risk Level:: Medical - low VTE Device Contraindication: N/A - Device Ordered VTE Drug Contraindication: Treatment Not Indicated
[2025-06-07] VITALS (7 sets, daily range): BP systolic 101–138; BP diastolic 41–59; PULSE 71–95; RESP 12–19; TEMP 35.2–37.5; O2SAT 93–98; BMI 50.3
[2025-06-07 01:30] LABS: Prothrombin Time 229.1 SEC (10.9-12.4)
[2025-06-07 01:36] LABS: INTERNATIONAL NORM RATIO 19.9 (0.9-1.1)
[2025-06-07 01:54] LABS: Fibrinogen 426 MG/DL (259-690)
--- OUTSIDE RECORDS SUMMARY | 2025-06-07 03:31 | XMS_ITS | Encounter Summary ---
Author Organization [employer] Address [address] [place] [address] Care Team Providers Care Crystal Calibrator Name Role Phone [facility] Primary Care Provider Lenora Espino MD Primary Care Provider [phone]iron Primary Care Provider [phone] Encounter Details Date Type Department Care Team (Late st Contact Info) Description 03/18/[address] [facility]PEDS [address], [address] [place] [address] Deja Corbett LPN Social History Tobacco Use [...] on filedocumented in this encounter Care Teams Crystal Calibrator Relationship Specialty Start Date End Date Mary Carlson FNP-BC PCP - General 09/07/22 11/23/23 Lenora Bush MD [address] [place] [id number] PCP - General Internal Medicine 11/24/23 09/21/24 [address] Giron PA [address] [place] [id number] PCP - General Physician Caser Up 09/22/24 documented as of this encounter
--- OUTSIDE RECORDS SUMMARY | 2025-06-07 03:31 | XMS_ITS | Clinical Summary ---
Author Organization [employer] [facility] it Address [address] [place] [address] Care Team Providers Care Continuous Mining Machine Coal Miner Name Role Phone Celestina Hines MD Primary Care Provider Social History Tobacco Use Types Packs/Day Years [...] age to complete this topic Care Teams Continuous Mining Machine Coal Miner Relationship Specialty Start Date End Date Celestina Hines MD [address] [place] [address] PCP - General Internal Medicine 11/21/14
--- OUTSIDE RECORDS SUMMARY | 2025-06-07 03:31 | XMS_ITS | Clinical Summary ---
Author Organization [employer] Address [address] [facility] [address] [place] [address] Care Team Providers Care Green Pipefitter Name Role Phone Court Giron Primary Care Provider [phone] Allergies Active Allergy Reactions Criticality Noted Date [...] (severe) obesity due to excess calories ( [facility]) 09/09/2022 Morbidly obese ([facility]) 09/09/2022 Primary insomnia 09/09/2022 Psychophysiological insomnia 09/09/2022 Migraine with aura 09/09/2022 Seizure disorder ([facility]) 09/09/2022 Symptomatic cholelithiasis 07/23/2017 Biliary colic 07/21/2017 [...] CYTO ATYPICAL SQUAMOUS CELLS OF UNDETERMINED SIGNIFICANCE(A) [facility] Clinical Information without abnormal findings [facility] SH LAB AP TRAINING AND DEVELOPMENT PROFESSIONAL SPECIMEN ADEQUACY Satisfactory for evaluation, endocervical/gonzalez sformation zone component absent [facility] Other Findings ORGANISMS CONSISTENT WITH TRICHOMONAS VAGINALIS [facility] CYTOLOGY CVX/VAG DOC CYTO (A) [facility] LAB AP EMBEDDED IMAGES [facility] Additional Information Pap test findings. [facility] Other Findings SHIFT IN [place] SUGGESTIVE OF BACTERIAL VAGINOSIS [facility] Additional Information [facility] LAB AP CASE REPORT Gynecologic Cytology Case: [id number] [facility] Additional Information [facility] Other Findings TESTING FOR HIGH-RISK STRAINS OF HPV HAS BEEN REQUESTED ON THIS PATIENT [facility] Additional Information Cpt:39735 [facility] LAB AP CASE REPORT Authorizing Provider: Gloria Leary MD Collected: 06/21/20192148 [facility] HPV REFLEX? HPV High Risk Regardless [facility] LAB AP CASE REPORT Ordering Location: [facility] Received: 06/21/20192148 [facility] Additional Information The Pap test is a generally effective screening test for squamous cervical [facility] LAB AP CASE REPORT Group [facility] Additional Information cancer and its precursors. However, both false negative and false [facility] LAB AP CASE REPORT First Screen: Mattie Davies [facility] Additional Information positive results occur. Results are most reliable when an adequate sample [facility] LAB AP CASE REPORT Pathologist: Freda Girard MD [facility] Additional Information is evaluated on a regular repetitive basis and clinically correlated. [facility] LAB AP CASE REPORT Specimen: Liquid-Based Pap, Screening, Cervix, Cloudy [facility] Additional Information Suspicious signs or symptoms may warrant follow-up studies regardless of [facility] Clinical Information Z01.419 Encounter for gynecological examination (general) (routine) [facility] 06/21/2019 9:49 PM EDT Gloria Leary MD LAB CYTOLOGY ORDERABLES Final Result Performing Organization Address [facility] Co de Phone Number [facility] [address] * HPV DNA XXX Ql Amp Prb (06/21/2019 9:49 PM EDT) HPV18 DNA CVX QL PROBE+SIG AMP Negative Negative [facility] Comment:Testing did not dete [...] OR DERABLES Final Result Performing Organization Address [facility] de Phone Number [facility] [address] from Last 3 Months or Most Recently Relevant to Health Maintenance Insurance Care Teams Green Pipefitter Relationship Specialty Start Date End Date Court Giron PA [address] [place] [address] PCP - General Physician Software Licensing Specialist 09/22/24
[2025-06-07 04:21] LABS: MANUAL DIFF FLAG NO
[2025-06-07 04:31] LABS: Hematocrit 35.2 % (37.0-47.0); Hemoglobin 11.2 g/dl (12.0-16.0); Imm Gran Abs Auto 0.01 X10*3/uL (0.00-0.03); Imm Gran Pct Auto 0.2 % (0.0-0.4); Lymphocytes Absolute Auto 1.8 X10*3/uL (1.2-4.9); Mean Corpuscular HGB Conc 31.8 g/dl (31.0-35.0); Mean Corpuscular Hemoglobin 30.7 pg (27.0-33.0); Mean Corpuscular Volume 96.4 fL (80.0-98.0); NRBC Abs Auto 0.000 X10*3/uL (0.0-0.012); NRBC Pct Auto 0.0 /100WBC (0.0-0.2); Platelet Count 139 X10*3/uL (160-400); Red Blood Count 3.65 X10*6/uL (4.20-5.50); White Blood Count 5.6 X10*3/uL (4.8-10.8)
[2025-06-07 04:40] LABS: Alanine Aminotransferase 17 U/L (0-31); Albumin Level 3.2 g/dL (3.5-5.0); Alkaline Phosphatase 113 U/L (39-117); Anion Gap 14 (12-20); Aspartate Amino Transferase 40 U/L (5-31); Blood Urea Nitrogen 22 mg/dL (9-16); Calcium 7.8 mg/dL (8.4-10.2); Carbon Dioxide 26 mmol/L (22-29); Chloride 109 mmol/L (96-108); Creatinine Clr Calc Pharmacy 75.7; Estimated Glomerular Filt Rate > 60; Potassium 4.5 mmol/L (3.3-5.1); Sodium 144 mmol/L (135-145); Total Protein 5.9 g/dL (6.5-8.0)
[2025-06-07 04:44] LABS: Prothrombin Time 81.4 SEC (10.9-12.4)
[2025-06-07 05:31] LABS: INTERNATIONAL NORM RATIO 7.1 (0.9-1.1)
--- NOTE | 2025-06-07 05:38 | PC.NURSE ---
Addendum entered by Trish Glover RN 06/07/25 05:40: CABLE TELEVISION INSTALLER aware of BP as well. Original Note: patient reported R. shoulder pain 03/03, states the pain started after the fall. Leonor CABLE TELEVISION INSTALLER made aware as there are no prns available for pain level and no previous images of shoulder. states will order xr and medication.
--- NOTE | 2025-06-07 05:42 | PM.EVENT ---
Event Note Date of Service: 06/07/25 Event Note: Nursing reporting pt is having R shoulder pain s/p recent fall. BP systolic 101, giving 975 tylenol and ordering XRAY R shoulder. Also, INR down to 7.1 after Vitamin K. HGB 11.2. Time Spent With Patient Time: Total time managing care of this patient today ____ minutes.
[2025-06-07] MEDS: 0.9 % Sodium Chloride Flush 3 ML SYRINGE IVFLUSH (07:43)
--- NOTE | 2025-06-07 08:00 | PC.NURSE ---
this nurse took report from [facility], patient a&ox3, vss, ekg monitor intact- nsr on monitor, seizure precautions intact/fall precautions intact, pt rr equal/non labored, lungs diminished, pt medicated with AM meds- whole with water. presently being NPO except meds, 2/10 rt shoulder pain which she was medicated with tylenol previously for. call castillo within reach, waiting for inpt bed, plan of care ongoing.
--- NOTE | 2025-06-07 10:08 | PC.NURSE ---
patient rang to ambulate to bathroom, this nurse brought pt to bathroom, pt c/o dizziness as ambulating, pt had notable large bloody BM, upon returning to the room Dr. Peña came to see patient and verbally requested a stat repeat CBC upon me telling him the pt had just had a bloody BM and was dizzy, will also notify the hospitalist. Pt was then changed over to inpt bed.
[2025-06-07 10:36] LABS: NRBC Abs Auto 0.000 X10*3/uL (0.0-0.012); NRBC Pct Auto 0.0 /100WBC (0.0-0.2); PLT CLUMP 1; Red Blood Count 3.59 X10*6/uL (4.20-5.50)
[2025-06-07 10:38] LABS: Hematocrit 34.9 % (37.0-47.0); Hemoglobin 11.1 g/dl (12.0-16.0); Mean Corpuscular HGB Conc 31.8 g/dl (31.0-35.0); Mean Corpuscular Hemoglobin 30.9 pg (27.0-33.0); Mean Corpuscular Volume 97.2 fL (80.0-98.0)
[2025-06-07 10:40] LABS: Platelet Count 146 X10*3/uL (160-400); White Blood Count 5.7 X10*3/uL (4.8-10.8)
--- NOTE | 2025-06-07 11:09 | P.CONCA_ITS ---
History of Present Illness History of Present Illness Date of Service: 06/07/25 Requesting physician: Mary Connolly Chief complaint: elevated INR, s/p fall Narrative: 65-year-old female presenting with fall and elevated INR of 17.9. She was recently at [facility] where atrial fibrillation was diagnosed and she was sent home with warfarin. She is on phenytoin for seizures in the past and DOACs were not chosen for that purpose. She is presenting to us with fall and elevated INR. She has hematuria and INR is 19.9. She was given vitamin K in the ER. She is saying that she was on Eliquis and warfarin and she was supposed to have INR checked through our nurse but no one came to check the INR. She is complaining of dizziness which is a vertigo like feeling. She is saying that there is fullness in both of her ears and pain in the left ear. I have looked through her admission at [facility] recently and it appears she was diagnosed with atrial fibrillation and ablation was being planned as outpatient. She was sent home with warfarin and there is no documentation about giving her apixaban. In fact it was documented that apixaban/-should not be used because of interaction with phenytoin which is quite appropriate. [facility] Past Medical History Medical History Nicotine dependence History of stroke Gastritis GERD (gastroesophageal reflux disease) Morbid obesity Seizure disorder Surgical History Surgical History History of cholecystectomy History of hernia surgery History of tubal ligation Social History Social History Household Members: Family Housing: Apartment Alcohol intake: never Patient Tobacco Use Status: Former Tobacco user Cigarette Packs Per Day: 0.5 Years Smoked: 25 +/- Advance Directives Date on File: 03/17/23 service: No Meds Allergies Allergy/AdvReac Type Severity Reaction Status Date / Time morphine Allergy Unknown rash Verified 06/06/25 16:32 Motrin Allergy Unknown stomach Uncoded 04/14/23 15:45 upset Active Medications: Current Medications Acetaminophen (Acetaminophen 325 Mg Tablet) 650 mg PO Q6H PRN PRN Reason: Pain, Mild 1-3,fever,headache Albuterol/Ipratropium (Albuterol/Iprat 2.5/0.5mg 3 Ml Ampul.Neb) 3 ml INHALE Q4H PRN PRN Reason: Shortness of Breath/Wheezing Calcium Carbonate (Calcium Carbonate 750 Mg Tab.Chew) 750 mg PO Q4H PRN PRN Reason: Heartburn Ceftriaxone Sodium (Ceftriaxone Sodium 1 Gm Vial) 1 gm IVPUSH Q24H [facility] Lactated Ringer's (Lr) 1,000 mls @ 80 mls/hr IVCONT .[id number] [facility] Magnesium Hydroxide (Milk Of Magnesia 30 Ml Oral.Susp) 30 ml PO DAILY PRN PRN Reason: Constipation Melatonin (Melatonin 3 Mg Tablet) 6 mg PO BEDTIME PRN PRN Reason: Insomnia Ondansetron HCl (Ondansetron Hcl 4 Mg/2 Ml Vial) 4 mg IVPUSH Q8H PRN PRN Reason: Nausea and Vomiting Phenytoin Sodium (Phenytoin Sodium Extended 100 Mg Capsule) 100 mg PO TID [facility] Last Admin: 06/07/25 07:43 Dose: 100 mg Polyethylene Glycol (Polyethylene Glycol 3350 17 Gm Powd.Pack) 17 gm PO DAILY PRN PRN Reason: Constipation Sodium Chloride (0.9 % Sodium Chloride Flush 3 Ml Syringe) 3 ml IVFLUSH QSHIFT [facility] Last Admin: 06/07/25 07:43 Dose: 3 ml Home Medications ?Medication ?Instructions ?Recorded ?Confirmed ?Last Taken ?Type albuterol sulfate 90 mcg/actuation 2 puff inhalation Q 6H PRN 03/12/23 04/14/23 Unknown History aerosol inhaler (ProAir HFA) Shortness Of Breath omeprazole 20 mg capsule,delayed 20 mg PO DAILY 04/14/23 Unknown History release phenytoin sodium extended 100 mg 100 mg PO TID 3 06/07/25 Unknown History capsule (Dilantin Extended) propranolol 120 mg capsule,24 120 mg PO DAILY 03/12/23 04/14/23 Unknown History hr,extended release quetiapine 100 mg tablet 100 mg PO DAILY 03/12/23 Unknown History topiramate 50 mg tablet 50 mg PO DAILY 03/12/2303/26 Unknown History metoprolol succinate 50 mg 50 mg PO DAILY 06/07/25 Unknown History tablet,extended release 24 hr sertraline 50 mg tablet 50 mg PO DAILY 06/07/2505/25 Unknown History warfarin 5 mg tablet 5 mg PO DAILY 06/07/2506/07 Unknown History Physical Exam 2 Vital Signs: Vital Signs: Last Vital Signs Temp 98.1 F 06/07/25 05:39 Pulse 75 06/07/25 05:39 Resp 16 06/07/25 05:39 BP 101/51 L 06/07/25 05:39 Pulse Ox 93 06/07/25 05:39 O2 Del Method Room Air 06/07/25 05:39 BMI result Body Mass Index 50.0 GENERAL APPEARANCE: in no acute distress, pleasant. NECK: no carotid bruit, no jugular venous distention. SKIN: no suspicious lesions, warm and dry. HEART: no murmurs, regular rate and rhythm. LUNGS: clear to auscultation bilaterally. ABDOMEN: soft, nontender. EXTREMITIES: no edema. PERIPHERAL PULSES: equal. NEUROLOGIC: No gross deficits, AAO X 3 Objective Labs and Meds 06/07/25 10:29 06/07/25 04:07 Lab results: Laboratory Results - last 24 hr 06/06/25 06/06/25 06/06/25 16:42 18:04 18:51 WBC 6.4 RBC 4.18 L Hgb 12.7 Hct 40.3 MCV 96.4 MCH 30.4 MCHC 31.5 RDW 14.0 Plt Count 151 L MPV 10.8 Immature Gran % (Auto) 0.2 Neut % (Auto) 47.5 Lymph % (Auto) 37.0 [place] % (Auto) 11.0 Eos % (Auto) 3.7 Baso % (Auto) 0.6 Lymph # (Auto) 2.4 [place] # (Auto) 0.7 Eos # (Auto) 0.2 Baso # (Auto) 0.0 Abs Immat Gran (auto) 0.01 Absolute Neuts (auto) 3.1 Absolute Nucleated RBC 0.000 Nucleated RBC % (auto) 0.0 PT 199.2 H 206.0 H INR 17.3 H* D 17.9 H* Fibrinogen Sodium 146 H Potassium 4.7 Chloride 110 H Carbon Dioxide 29 Anion Gap 12 BUN 19 H Creatinine 0.97 Estim Creat Clear Calc 72.7 Estimated GFR 58 Random Glucose 123 H Lactic Acid Calcium 8.4 Magnesium 2.0 Total Bilirubin 0.3 AST 23 ALT 11 Alkaline Phosphatase 124 H Total Protein 6.9 Albumin 3.6 Urine Color RED Urine Appearance Turbid Urine pH 7.0 Ur Specific [place] 1.010 Urine Protein 300 (3+) H Urine Glucose (UA) 100 H Urine Ketones 15 Urine Blood Large (3+) H Urine Nitrite Positive H Ur Leukocyte Esterase Moderate (2+) H Urine RBC >20 H Urine WBC 6-10 Ur Squamous Epith Cells 6-10 Urine Bacteria 2+ Hyaline Casts 0-2 Blood Type O Positive Antibody Screen NEGATIVE 06/06/25 06/07/25 06/07/25 18:52 01:08 04:07 WBC 5.6 RBC 3.65 L Hgb 11.2 L Hct 35.2 L MCV 96.4 MCH 30.7 MCHC 31.8 RDW 14.2 Plt Count 139 L MPV 11.1 Immature Gran % (Auto) 0.2 Neut % (Auto) 50.3 Lymph % (Auto) 32.6 [place] % (Auto) 12.8 H Eos % (Auto) 3.4 Baso % (Auto) 0.7 Lymph # (Auto) 1.8 [place] # (Auto) 0.7 Eos # (Auto) 0.2 Baso # (Auto) 0.0 Abs Immat Gran (auto) 0.01 Absolute Neuts (auto) 2.8 Absolute Nucleated RBC 0.000 Nucleated RBC % (auto) 0.0 PT 229.1 H 81.4 H D INR 19.9 H* D 7.1 H* D Fibrinogen 426 Sodium 144 Potassium 4.5 Chloride 109 H Carbon Dioxide 26 Anion Gap 14 BUN 22 H Creatinine 0.93 Estim Creat Clear Calc 75.7 Estimated GFR > 60 Random Glucose 133 H Lactic Acid 0.9 Calcium 7.8 L D Magnesium Total Bilirubin 0.2 AST 40 H ALT 17 Alkaline Phosphatase 113 Total Protein 5.9 L Albumin 3.2 L Urine Color Urine Appearance Urine pH Ur Specific [place] Urine Protein Urine Glucose (UA) Urine Ketones Urine Blood Urine Nitrite Ur Leukocyte Esterase Urine RBC Urine WBC Ur Squamous Epith Cells Urine Bacteria Hyaline Casts Blood Type Antibody Screen 06/07/25 10:29 WBC 5.7 RBC 3.59 L Hgb 11.1 L Hct 34.9 L MCV 97.2 MCH 30.9 MCHC 31.8 RDW 14.3 Plt Count 146 L MPV 11.0 Immature Gran % (Auto) Neut % (Auto) Lymph % (Auto) [place] % (Auto) Eos % (Auto) Baso % (Auto) Lymph # (Auto) [place] # (Auto) Eos # (Auto) Baso # (Auto) Abs Immat Gran (auto) Absolute Neuts (auto) Absolute Nucleated RBC 0.000 Nucleated RBC % (auto) 0.0 PT INR Fibrinogen Sodium Potassium Chloride Carbon Dioxide Anion Gap BUN Creatinine Estim Creat Clear Calc Estimated GFR Random Glucose Lactic Acid Calcium Magnesium Total Bilirubin AST ALT Alkaline Phosphatase Total Protein Albumin Urine Color Urine Appearance Urine pH Ur Specific [place] Urine Protein Urine Glucose (UA) Urine Ketones Urine Blood Urine Nitrite Ur Leukocyte Esterase Urine RBC Urine WBC Ur Squamous Epith Cells Urine Bacteria Hyaline Casts Blood Type Antibody Screen Imaging Radiologist's impression: Impressions Shoulder X-Ray 06/07/25 06:35 IMPRESSION: Mild narrowing of the AC joint. No evidence of fracture of the right shoulder. Electronically signed by: Cal Rocha MD 06/07/2025 07:50 AM EDT RP Assessment and Plan (1) Elevated INR: Status: Acute (2) PAF (paroxysmal atrial fibrillation): Status: Acute Plan 65 year female with recent diagnosis of atrial fibrillation who was sent home on warfarin and now presenting with fall and significantly elevated INR of 19.9. Hemoglobin currently is stable and she has hematuria ongoing. Monitor INR and CBC closely. She was given some vitamin K and INR is improving. I think warfarin we will be a challenging drug to use in her especially with this presentation. Phenytoin clearly has an interaction with DOACs. I think 1 strategy can be to discuss with Neurology and change her from phenytoin to Keppra which will not have any significant interaction with the apixaban. In that case we can change her to 5 mg twice a day of apixaban as her INR improves and hematuria improves. Hopefully this is just all related to elevated INR and there is no other organic pathology. We will follow along with you. She is already set up with Dr. Robi Olmedo to have AFib ablation. She will follow-up with [facility] after discharge. Thank you for allowing me to participate in the care of your patient. Please feel free to contact me if you have any questions. Procedures Date of Service Date of Service: 06/07/25
[2025-06-07 11:11] LABS: INTERNATIONAL NORM RATIO 1.7 (0.9-1.1); Prothrombin Time 19.2 SEC (10.9-12.4)
[2025-06-07] MEDS: Lactated Ringers 1,000 ML 80 ML IVCONT (11:17)
--- NOTE | 2025-06-07 11:19 | PC.NURSE ---
ivf started per order
--- NOTE | 2025-06-07 12:04 | MHC.CM.PN ---
CM met with Patient at bedside,in the Ed, with the assist of Canadian Translation and addressed IMM with Patient(original was given to Patient and a copy will be placed on the chart). Patient lives in a house with her Niece and she uses a walker to assist with mobility. Home with [facility] is Patient's goal and CM has initiated and will follow for dc planning. Daughter/Chyna is the HCP, Dr. Ashely Silva is the PCP, and a Friend will transport at dc.
--- NOTE | 2025-06-07 12:41 | PHA.MEDREC ---
Pharmacy Consult ? Medication Reconciliation Pharmacy has completed the medication reconciliation. Spoke with pt at bedside with interpretor. Pt states she is only on 4 medications, but is a poor historian and could not name any medications, except for Dilantin. Pt confirmed she is on medications based on this indications: a blood thinner starting with W , and takes this daily. Confirmed a medication for depression (sertraline), and medication for high blood pressure/rate (metoprolol). Pt last took her medications yesterday. Tried to call family to confirm medications (as pt's jo helps her), but her daughter's phone is not taking calls.
--- NOTE | 2025-06-07 14:18 | HO.NURTONUR ---
pt comes from home after falling oob 06/02 positive head strike and on thinner. pt being admitted for elevated inr, it was 17.3 and found by provider that she was prescribed TWO thinners and was taking both. pt has had hematuria and bloody stools- providers are aware of this. she has 2/10 rt shoulder pain. 20g to lt FA LR @80 running. + UTI. pt takes meds whole, ambulates with assist to bathroom, rings appropriately for assistance.
--- NOTE | 2025-06-07 15:51 | P.PNIM_ITS ---
Subjective Subjective Date of Service: 06/07/25 Interval History: Pt is Somali speaking, she denies any sx, states that she wants to go to bathroom, INR trending down, still has hematuria, Hb stable so far, Pt was dc on coumadin from [facility] upon rechecking discharge notes per cards Review of Systems -ve fpr all sx Physical Exam 2 Exam: Exam: Alert and orientated X3, not able to give good history. Neuro: CN II-X11 intact, no deficits, visual acuity intact Cardiac: RRR, no MACIE Pulmonary: CTAB, on RA Abdominal: soft , non tender, MSK: strength 3-4/5 upper and lower extremities : no CVA tenderness no bladder distension Extremities: Mild edema in lower extremities, Psych: mood stable, judgement and insight fair Skin: Bruising noted over right knee and lower leg Vital Signs: Vital Signs: Last Vital Signs Temp 97.9 F 06/07/25 14:21 Pulse 76 06/07/25 14:21 Resp 12 06/07/25 14:21 BP 112/54 L 06/07/25 14:21 Pulse Ox 98 06/07/25 14:21 O2 Del Method Room Air 06/07/25 14:21 BMI result Body Mass Index 50.0 Objective Data Active Medications Acetaminophen (Acetaminophen 325 Mg Tablet) 650 mg PO Q6H PRN PRN Reason: Pain, Mild 1-3,fever,headache Albuterol/Ipratropium (Albuterol/Iprat 2.5/0.5mg 3 Ml Ampul.Neb) 3 ml INHALE Q4H PRN PRN Reason: Shortness of Breath/Wheezing Calcium Carbonate (Calcium Carbonate 750 Mg Tab.Chew) 750 mg PO Q4H PRN PRN Reason: Heartburn Ceftriaxone Sodium (Ceftriaxone Sodium 1 Gm Vial) 1 gm IVPUSH Q24H PRACHI Lactated Ringer's (Lr) 1,000 mls @ 80 mls/hr IVCONT .[id number] [facility] Last Admin: 06/07/25 11:17 Dose: 80 mls/hr Documented By: JESSICA Magnesium Hydroxide (Milk Of Magnesia 30 Ml Oral.Susp) 30 ml PO DAILY PRN PRN Reason: Constipation Melatonin (Melatonin 3 Mg Tablet) 6 mg PO BEDTIME PRN PRN Reason: Insomnia Ondansetron HCl (Ondansetron Hcl 4 Mg/2 Ml Vial) 4 mg IVPUSH Q8H PRN PRN Reason: Nausea and Vomiting Phenytoin Sodium (Phenytoin Sodium Extended 100 Mg Capsule) 100 mg PO TID [facility] Last Admin: 06/07/25 14:52 Dose: 100 mg Documented By: PARADISE Polyethylene Glycol (Polyethylene Glycol 3350 17 Gm Powd.Pack) 17 gm PO DAILY PRN PRN Reason: Constipation Sodium Chloride (0.9 % Sodium Chloride Flush 3 Ml Syringe) 3 ml IVFLUSH QSHIFT [facility] Last Admin: 06/07/25 13:53 Dose: Not Given Documented By: JESSICA Non-Admin Reason: IV Running Labs 06/07/25 10:29 06/07/25 04:07 Labs: Laboratory Results - last 24 hr 06/06/25 06/06/25 06/06/25 16:42 18:04 18:51 MCV 96.4 MCH 30.4 MCHC 31.5 RDW 14.0 Plt Count 151 L MPV 10.8 Immature Gran % (Auto) 0.2 Neut % (Auto) 47.5 Lymph % (Auto) 37.0 [place] % (Auto) 11.0 Eos % (Auto) 3.7 Baso % (Auto) 0.6 Lymph # (Auto) 2.4 [place] # (Auto) 0.7 Eos # (Auto) 0.2 Baso # (Auto) 0.0 Abs Immat Gran (auto) 0.01 Absolute Neuts (auto) 3.1 Absolute Nucleated RBC 0.000 Nucleated RBC % (auto) 0.0 PT 199.2 H 206.0 H INR 17.3 H* D 17.9 H* Fibrinogen Anion Gap 12 Estim Creat Clear Calc 72.7 Estimated GFR 58 Random Glucose 123 H Lactic Acid Calcium 8.4 Magnesium 2.0 Total Bilirubin 0.3 AST 23 ALT 11 Alkaline Phosphatase 124 H Total Protein 6.9 Albumin 3.6 Urine Color RED Urine Appearance Turbid Urine pH 7.0 Ur Specific [place] 1.010 Urine Protein 300 (3+) H Urine Glucose (UA) 100 H Urine Ketones 15 Urine Blood Large (3+) H Urine Nitrite Positive H Ur Leukocyte Esterase Moderate (2+) H Urine RBC >20 H Urine WBC 6-10 Ur Squamous Epith Cells 6-10 Urine Bacteria 2+ Hyaline Casts 0-2 Blood Type O Positive Antibody Screen NEGATIVE 06/06/25 06/07/25 06/07/25 18:52 01:08 04:07 MCV 96.4 MCH 30.7 MCHC 31.8 RDW 14.2 Plt Count 139 L MPV 11.1 Immature Gran % (Auto) 0.2 Neut % (Auto) 50.3 Lymph % (Auto) 32.6 [place] % (Auto) 12.8 H Eos % (Auto) 3.4 Baso % (Auto) 0.7 Lymph # (Auto) 1.8 [place] # (Auto) 0.7 Eos # (Auto) 0.2 Baso # (Auto) 0.0 Abs Immat Gran (auto) 0.01 Absolute Neuts (auto) 2.8 Absolute Nucleated RBC 0.000 Nucleated RBC % (auto) 0.0 PT 229.1 H 81.4 H D INR 19.9 H* D 7.1 H* D Fibrinogen 426 Anion Gap 14 Estim Creat Clear Calc 75.7 Estimated GFR > 60 Random Glucose 133 H Lactic Acid 0.9 Calcium 7.8 L D Magnesium Total Bilirubin 0.2 AST 40 H ALT 17 Alkaline Phosphatase 113 Total Protein 5.9 L Albumin 3.2 L Urine Color Urine Appearance Urine pH Ur Specific [place] Urine Protein Urine Glucose (UA) Urine Ketones Urine Blood Urine Nitrite Ur Leukocyte Esterase Urine RBC Urine WBC Ur Squamous Epith Cells Urine Bacteria Hyaline Casts Blood Type Antibody Screen 06/07/25 06/07/25 10:29 11:00 MCV 97.2 MCH 30.9 MCHC 31.8 RDW 14.3 Plt Count 146 L MPV 11.0 Immature Gran % (Auto) Neut % (Auto) Lymph % (Auto) [place] % (Auto) Eos % (Auto) Baso % (Auto) Lymph # (Auto) [place] # (Auto) Eos # (Auto) Baso # (Auto) Abs Immat Gran (auto) Absolute Neuts (auto) Absolute Nucleated RBC 0.000 Nucleated RBC % (auto) 0.0 PT 19.2 H D INR 1.7 H D Fibrinogen Anion Gap Estim Creat Clear Calc Estimated GFR Random Glucose Lactic Acid Calcium Magnesium Total Bilirubin AST ALT Alkaline Phosphatase Total Protein Albumin Urine Color Urine Appearance Urine pH Ur Specific [place] Urine Protein Urine Glucose (UA) Urine Ketones Urine Blood Urine Nitrite Ur Leukocyte Esterase Urine RBC Urine WBC Ur Squamous Epith Cells Urine Bacteria Hyaline Casts Blood Type Antibody Screen Microbiology Microbiology Results: Microbiology 06/06/25 Unknown Urine Culture - Preliminary Urine clean catch - Clean Catch Midstream No growth to date. Assessment and Plan (1) Afib: Status: Acute (2) Elevated INR: Status: Acute (3) Urinary tract infection: Status: Acute Plan Fuselage Framer used for interview. Patient is a 65-year-old Somali- speaking female with past medical history hypertension, asthma, former smoker, AFib recently diagnosed after being seen in [facility] 2 weeks prior and was started on Eliquis and Coumadin, obesity, epilepsy, GERD presents to the emergency department after experiencing a fall on 06/02 including a strike to the head and possible loss of consciousness. Patient then started having vaginal/urinary bleeding yesterday. Patient was seen because the bleeding did not stop. INR 17.9. Pt recently discharged from [facility] on both Coumadin and Eliquis, was seen for chest pain and diagnosed with AFib. Elevated INR Pt was discharged on Coumadin only from [facility] per cards cards consult appreciated will touch base with neuro re phenytoin, given their interaction with DOAC received VIT K multiple doses repeat INT 1.7 now, cont to hold AC, until hematuria resolves UTI/ acute pyelonephritis/ hematuria Patient is started on ceftriaxone IV hydration provided Follow urine culture Hematuria likely from elevated INR, if bleeding from other source i.e. vaginal consider FRAME HAND consult, pesamantha US AFIB recently dx Pt currently sinus rhythm Telemetry hold AC for now History of epilepsy Continue phenytoin 100 mg t.i.d. 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 Patient does have report of chronic Follow-up as an outpatient with surgery if indicated Right parotid lesion, pleomorphic adenoma Noted on CT of the chest Follow-up can be done as an outpatient MRI is recommended Diverticulosis Patient currently asymptomatic Avoid foods with seeds including popcorn Hepatic steatosis Chronic condition LFTs normal Patient does not use alcohol regularly DVT prophylaxis: Held due to elevated INR Full code status Quality Stroke Does the patient have a stroke diagnosis?: No Reason for No Anti-thrombotic by Day Two: Contraindicated (Elevated INR) VTE Prior VTE?: No VTE Risk Level:: Medical - low VTE Device Contraindication: N/A - Device Ordered VTE Drug Contraindication: Treatment Not Indicated
[2025-06-08 00:23] LABS: MANUAL DIFF FLAG NO
[2025-06-08 00:30] LABS: Hematocrit 33.0 % (37.0-47.0); Hemoglobin 10.4 g/dl (12.0-16.0); Imm Gran Abs Auto 0.01 X10*3/uL (0.00-0.03); Imm Gran Pct Auto 0.2 % (0.0-0.4); Lymphocytes Absolute Auto 1.9 X10*3/uL (1.2-4.9); Mean Corpuscular HGB Conc 31.5 g/dl (31.0-35.0); Mean Corpuscular Hemoglobin 30.4 pg (27.0-33.0); Mean Corpuscular Volume 96.5 fL (80.0-98.0); NRBC Abs Auto 0.000 X10*3/uL (0.0-0.012); NRBC Pct Auto 0.0 /100WBC (0.0-0.2); Platelet Count 149 X10*3/uL (160-400); Red Blood Count 3.42 X10*6/uL (4.20-5.50); White Blood Count 4.9 X10*3/uL (4.8-10.8)
[2025-06-08 02:35] VITALS: BP 101/60; PULSE 84; RESP 17; TEMP 36.4; O2SAT 94
[2025-06-08 07:13] LABS: Hematocrit 33.2 % (37.0-47.0); Hemoglobin 10.5 g/dl (12.0-16.0)
[2025-06-08 07:15] LABS: INTERNATIONAL NORM RATIO 1.1 (0.9-1.1); Prothrombin Time 13.1 SEC (10.9-12.4)
[2025-06-08 07:27] LABS: Alanine Aminotransferase 19 U/L (0-31); Albumin Level 3.0 g/dL (3.5-5.0); Alkaline Phosphatase 110 U/L (39-117); Anion Gap 10 (12-20); Aspartate Amino Transferase 34 U/L (5-31); Blood Urea Nitrogen 19 mg/dL (9-16); Calcium 8.2 mg/dL (8.4-10.2); Carbon Dioxide 29 mmol/L (22-29); Chloride 110 mmol/L (96-108); Creatinine Clr Calc Pharmacy 83.3; Estimated Glomerular Filt Rate > 60; Potassium 4.9 mmol/L (3.3-5.1); Sodium 144 mmol/L (135-145); Total Protein 5.7 g/dL (6.5-8.0)
[2025-06-08 07:57] VITALS: BP 146/72; PULSE 90; RESP 18; TEMP 36.7; O2SAT 94
--- NOTE | 2025-06-08 08:56 | ECG_ITS ---
Test Reason : dizziness Blood Pressure : */* mmHG Vent. Rate : 83 BPM Atrial Rate : 83 BPM P-R Int : 110 ms QRS Dur : 82 ms QT Int : 348 ms P-R-T Axes : 43 57 66 degrees QTcB Int : 408 ms Poor data quality, interpretation may be adversely affected Sinus rhythm Otherwise normal ECG When compared to the previous EKG of Sinus rhythm has replaced atrial flutter Referred By: Mary Connolly Electronically Signed By: Nathaniel Peña
[2025-06-08] MEDS: Lactated Ringers 1,000 ML 80 ML IVCONT ×2 (09:22→21:39)
--- NOTE | 2025-06-08 10:39 | P.PNCA_ITS ---
Subjective Subjective Date of Service: 06/08/25 Interval history: Seen examined at bedside. She is complaining of anxiety. Physical Exam Vital Signs: Last Vital Signs Temp 98.1 F 06/07/25 05:39 Pulse 75 06/07/25 05:39 Resp 16 06/07/25 05:39 BP 101/51 L 06/07/25 05:39 Pulse Ox 93 06/07/25 05:39 O2 Del Method Room Air 06/07/25 05:39 BMI result Body Mass Index 50.0 GENERAL APPEARANCE: in no acute distress, pleasant. NECK: no carotid bruit, no jugular venous distention. SKIN: no suspicious lesions, warm and dry. HEART: no murmurs, regular rate and rhythm. LUNGS: clear to auscultation bilaterally. ABDOMEN: soft, nontender. EXTREMITIES: no edema. PERIPHERAL PULSES: equal. NEUROLOGIC: No gross deficits, AAO X 3 Objective Labs and Meds 06/08/25 06:51 06/08/25 06:51 Lab results: Laboratory Results - last 24 hr 06/07/25 06/07/25 06/08/25 10:29 11:00 00:18 WBC 5.7 4.9 RBC 3.59 L 3.42 L Hgb 11.1 L 10.4 L Hct 34.9 L 33.0 L MCV 97.2 96.5 MCH 30.9 30.4 MCHC 31.8 31.5 RDW 14.3 14.0 Plt Count 146 L 149 L MPV 11.0 10.9 Immature Gran % (Auto) 0.2 Neut % (Auto) 42.2 L Lymph % (Auto) 38.4 [place] % (Auto) 13.9 H Eos % (Auto) 4.7 H Baso % (Auto) 0.6 Lymph # (Auto) 1.9 [place] # (Auto) 0.7 Eos # (Auto) 0.2 Baso # (Auto) 0.0 Abs Immat Gran (auto) 0.01 Absolute Neuts (auto) 2.1 Absolute Nucleated RBC 0.000 0.000 Nucleated RBC % (auto) 0.0 0.0 PT 19.2 H D INR 1.7 H D Sodium Potassium Chloride Carbon Dioxide Anion Gap BUN Creatinine Estim Creat Clear Calc Estimated GFR Random Glucose Calcium Total Bilirubin AST ALT Alkaline Phosphatase Total Protein Albumin 06/08/25 06:51 WBC RBC Hgb 10.5 L Hct 33.2 L MCV MCH MCHC RDW Plt Count MPV Immature Gran % (Auto) Neut % (Auto) Lymph % (Auto) [place] % (Auto) Eos % (Auto) Baso % (Auto) Lymph # (Auto) [place] # (Auto) Eos # (Auto) Baso # (Auto) Abs Immat Gran (auto) Absolute Neuts (auto) Absolute Nucleated RBC Nucleated RBC % (auto) PT 13.1 H D INR 1.1 Sodium 144 Potassium 4.9 Chloride 110 H Carbon Dioxide 29 Anion Gap 10 L BUN 19 H Creatinine 0.85 Estim Creat Clear Calc 83.3 Estimated GFR > 60 Random Glucose 107 Calcium 8.2 L Total Bilirubin 0.3 AST 34 H ALT 19 Alkaline Phosphatase 110 Total Protein 5.7 L Albumin 3.0 L Progress Note: A&P Assessment and plan (1) Elevated INR: Status: Acute Plan [age] year female presenting with elevated INR of 19.9 with hematuria. INR was reversed appropriately. She recently had atrial fibrillation episode at [facility] and was planned for ablation and was sent home with warfarin. She has been on chronic phenytoin therapy and due to interaction between phenytoin and DOACs warfarin was chosen. Given the fact that she presented with significant supratherapeutic INR continuing Coumadin also is quite difficult. One option can be to get her off the phenytoin and be changed to Keppra and then start her on Eliquis as hematuria improves. This will involve curbside in the neurology team. The patient does not recall having any seizures in the recent past. Thank you for allowing me to participate in the care of your patient. Please feel free to contact me if you have any questions. Time Spent With Patient Time: Total time managing care of this patient today ____ minutes. Progress Note: Quality Stroke Does the patient have a stroke diagnosis?: No Reason for No Anti-thrombotic by Day Two: Contraindicated (Elevated INR) Procedures Date of Service Date of Service: 06/08/25
[2025-06-08 11:56] VITALS: BP 141/65; PULSE 78; RESP 18; TEMP 36.3; O2SAT 94
--- NOTE | 2025-06-08 14:12 | HO.PM.IMPN ---
Subjective Subjective Date of Service: 06/08/25 Interval History: Pt seen this am, in tears, [place] Island[place] speaking, states that she feels depressed, hematuria and melena have resolved, she is having non bloody diarrhea now, GI panel sent, INR subtherapeutic now, she denies other sx Review of Systems -ve except as stated above Physical Exam Exam: Exam: Alert and orientated X3, tearful, crying Neuro: CN II-X11 intact, no deficits, visual acuity intact Cardiac: RRR, no MACIE Pulmonary: CTAB, on RA Abdominal: soft , non tender, MSK: strength 3-4/5 upper and lower extremities : no CVA tenderness no bladder distension Extremities: Mild edema in lower extremities, Psych: judgment and insight fair Skin: Bruising noted over right knee and lower leg Vital Signs: Vital Signs: Last Vital Signs Temp 97.4 F 06/08/25 11:56 Pulse 78 06/08/25 11:56 Resp 18 06/08/25 11:56 BP 141/65 H 06/08/25 11:56 Pulse Ox 94 06/08/25 11:56 O2 Del Method Room Air 06/08/25 11:56 BMI result Body Mass Index 50.3 Objective Data Active Medications Acetaminophen (Acetaminophen 325 Mg Tablet) 650 mg PO Q6H PRN PRN Reason: Pain, Mild 1-3,fever,headache Last Admin: 06/08/25 04:31 Dose: 650 mg Documented By: FLORINDA Albuterol/Ipratropium (Albuterol/Iprat 2.5/0.5mg 3 Ml Ampul.Neb) 3 ml INHALE Q4H PRN PRN Reason: Shortness of Breath/Wheezing Calcium Carbonate (Calcium Carbonate 750 Mg Tab.Chew) 750 mg PO Q4H PRN PRN Reason: Heartburn Ceftriaxone Sodium (Ceftriaxone Sodium 1 Gm Vial) 1 gm IVPUSH Q24H [facility] Last Admin: 06/08/25 00:23 Dose: 1 gm Documented By: FLORINDA Comments: Delayed administration d/t no IV access Lactated Ringer's (Lr) 1,000 mls @ 80 mls/hr IVCONT .[id number] [facility] Last Admin: 06/08/25 13:04 Dose: Not Given Documented By: PARADISE Non-Admin Reason: IV Running Magnesium Hydroxide (Milk Of Magnesia 30 Ml Oral.Susp) 30 ml PO DAILY PRN PRN Reason: Constipation Melatonin (Melatonin 3 Mg Tablet) 6 mg PO BEDTIME PRN PRN Reason: Insomnia Last Admin: 06/07/25 23:27 Dose: 6 mg Documented By: FLORINDA Ondansetron HCl (Ondansetron Hcl 4 Mg/2 Ml Vial) 4 mg IVPUSH Q8H PRN PRN Reason: Nausea and Vomiting Last Admin: 06/08/25 08:02 Dose: 4 mg Documented By: PARADISE Phenytoin Sodium (Phenytoin Sodium Extended 100 Mg Capsule) 100 mg PO TID [facility] Last Admin: 06/08/25 09:22 Dose: 100 mg Documented By: PARADISE Polyethylene Glycol (Polyethylene Glycol 3350 17 Gm Powd.Pack) 17 gm PO DAILY PRN PRN Reason: Constipation Sertraline HCl (Sertraline Hcl 50 Mg Tablet) 50 mg PO DAILY [facility] Last Admin: 06/08/25 09:22 Dose: 50 mg Documented By: PARADISE Sodium Chloride (0.9 % Sodium Chloride Flush 3 Ml Syringe) 3 ml IVFLUSH QSHIFT [facility] Last Admin: 06/08/25 07:12 Dose: Not Given Documented By: PARADISE Non-Admin Reason: IV Running Labs 06/08/25 06:51 06/08/25 06:51 Labs: Laboratory Results - last 24 hr 06/08/25 06/08/25 00:18 06:51 MCV 96.5 MCH 30.4 MCHC 31.5 RDW 14.0 Plt Count 149 L MPV 10.9 Immature Gran % (Auto) 0.2 Neut % (Auto) 42.2 L Lymph % (Auto) 38.4 [place] % (Auto) 13.9 H Eos % (Auto) 4.7 H Baso % (Auto) 0.6 Lymph # (Auto) 1.9 [place] # (Auto) 0.7 Eos # (Auto) 0.2 Baso # (Auto) 0.0 Abs Immat Gran (auto) 0.01 Absolute Neuts (auto) 2.1 Absolute Nucleated RBC 0.000 Nucleated RBC % (auto) 0.0 PT 13.1 H D INR 1.1 Anion Gap 10 L Estim Creat Clear Calc 83.3 Estimated GFR > 60 Random Glucose 107 Calcium 8.2 L Total Bilirubin 0.3 AST 34 H ALT 19 Alkaline Phosphatase 110 Total Protein 5.7 L Albumin 3.0 L Microbiology Microbiology Results: Microbiology 06/06/25 Unknown Urine Culture - Final Urine clean catch - Clean Catch Midstream 06/06/25 18:52 Blood Culture - Preliminary Blood - Venous No growth after 24 hours. 06/06/25 18:52 Blood Culture - Preliminary Blood - Venous No growth after 24 hours. Assessment and Plan (1) Afib: Status: Acute (2) Elevated INR: Status: Acute (3) Diarrhea: Status: Acute (4) History of epilepsy: Status: Acute (5) Urinary tract infection: Status: Acute Plan nterpreter used for interview. Patient is a 65-year-old [place] Islander-speaking female with past medical history hypertension, asthma, former smoker, AFib recently diagnosed after being seen in [facility] 2 weeks prior and was started on Eliquis and Coumadin, obesity, epilepsy, GERD presents to the emergency department after experiencing a fall on 06/02 including a strike to the head and possible loss of consciousness. Patient then started having vaginal/urinary bleeding yesterday. Patient was seen because the bleeding did not stop. INR 17.9. Pt recently discharged from [facility] on both Coumadin and Eliquis, was seen for chest pain and diagnosed with AFib. Elevated INR Pt was discharged on Coumadin only from [facility] per cards cards consult appreciated will touch base with neuro re phenytoin, given their interaction with DOAC received VIT K multiple doses repeat INT 1.7 now, cont to hold AC, until hematuria resolves hb stable so far Diarrhea: gi panel sent, r/o cdiff if panel -ve consider imodium. IVF UTI/ acute pyelonephritis/ hematuria Patient is started on ceftriaxone IV hydration provided urine culture -ve Hematuria likely from elevated INR, resolved now AFIB recently dx Pt currently sinus rhythm Telemetry hold AC for now per cards History of epilepsy Continue phenytoin 100 mg t.i.d. 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 Patient does have report of chronic Follow-up as an outpatient with surgery if indicated Right parotid lesion, pleomorphic adenoma Noted on CT of the chest Follow-up can be done as an outpatient MRI is recommended Diverticulosis Patient currently asymptomatic Avoid foods with seeds including popcorn Hepatic steatosis Chronic condition LFTs normal Patient does not use alcohol regularly DVT prophylaxis: Held due to elevated INR Full code status omn: diarrhea Quality Stroke Does the patient have a stroke diagnosis?: No Reason for No Anti-thrombotic by Day Two: Contraindicated (Elevated INR) VTE Prior VTE?: No VTE Risk Level:: Medical - low VTE Device Contraindication: N/A - Device Ordered VTE Drug Contraindication: Treatment Not Indicated
[2025-06-08 14:48] LABS: E. coli EAEC Not Detected (Not Detect.); E. coli EPEC Not Detected (Not Detect.); E. coli ETEC Not Detected (Not Detect.); E. coli STEC Not Detected (Not Detect.); Shigella sp./EIEC Not Detected (Not Detect.)
--- NOTE | 2025-06-08 15:12 | MHC.CM.PN ---
Per rounds, pt. is not medically cleared, she is having diarrhea, and is feeling dizzy, Neuro to see her. DCP: home with VNA services.
--- NOTE | 2025-06-08 15:22 | PM.NEUROCN ---
History of Present Illness Data of Consult Service Date: 06/08/25 Primary Care Provider: Ashely Silva MD [facility] Reason for consult: Bleeding from anticoagulants for A fib. Sz disorder This is a 65-year-old Macanese-speaking female who is a poor historian with past medical history hypertension, asthma, AFib recently diagnosed at [facility] and started on Eliquis and Coumadin, obesity, epilepsy no details available, GERD presents to the emergency department after experiencing a fall on 06/02 including a strike to the head and possible loss of consciousness. Patient then started having vaginal/urinary bleeding yesterday. Patient was seen because the bleeding did not stop. INR was never checked. Daughter called the office but was not able to leave a message and did not get through to the office to report this. Patient was diagnosed with a fast heart rate while at [facility] and was seen because she was having intermittent chest pain. Patient recently moved from [place] to the [facility] and is now living with her niece. Her daughter is trying to manage her medications and her overall care. Workup in the emergency department included labs which identified on INR at 17.9, confirmed. Neurology was consulted to see if the Dilantin could be changed to an alternative antiepileptic drug because of interaction with anticoagulants. [facility] Past Medical History Medical History (Updated 06/08/25 @ 14:23 by Mary Connolly MD) History of epilepsy Nicotine dependence History of stroke Gastritis GERD (gastroesophageal reflux disease) Morbid obesity Seizure disorder Surgical History Surgical History History of cholecystectomy History of hernia surgery History of tubal ligation Social History Social History Household Members: Family Housing: Apartment Do you presently have visiting nurse or other home services: Yes Alcohol intake: never Patient Tobacco Use Status: Former Tobacco user Cigarette Packs Per Day: 0.5 Years Smoked: 25 +/- Advance Directives Date on File: 03/17/23 service: No Meds Allergies Allergy/AdvReac Type Severity Reaction Status Date / Time morphine Allergy Unknown rash Verified 06/06/25 16:32 Motrin Allergy Unknown stomach Uncoded 04/14/23 15:45 upset Active Medications: Current Medications Acetaminophen (Acetaminophen 325 Mg Tablet) 650 mg PO Q6H PRN PRN Reason: Pain, Mild 1-3,fever,headache Last Admin: 06/08/25 04:31 Dose: 650 mg Albuterol/Ipratropium (Albuterol/Iprat 2.5/0.5mg 3 Ml Ampul.Neb) 3 ml INHALE Q4H PRN PRN Reason: Shortness of Breath/Wheezing Calcium Carbonate (Calcium Carbonate 750 Mg Tab.Chew) 750 mg PO Q4H PRN PRN Reason: Heartburn Ceftriaxone Sodium (Ceftriaxone Sodium 1 Gm Vial) 1 gm IVPUSH Q24H [facility] Last Admin: 06/08/25 00:23 Dose: 1 gm Lactated Ringer's (Lr) 1,000 mls @ 80 mls/hr IVCONT .[id number] [facility] Last Admin: 06/08/25 13:04 Dose: Not Given Magnesium Hydroxide (Milk Of Magnesia 30 Ml Oral.Susp) 30 ml PO DAILY PRN PRN Reason: Constipation Melatonin (Melatonin 3 Mg Tablet) 6 mg PO BEDTIME PRN PRN Reason: Insomnia Last Admin: 06/07/25 23:27 Dose: 6 mg Ondansetron HCl (Ondansetron Hcl 4 Mg/2 Ml Vial) 4 mg IVPUSH Q8H PRN PRN Reason: Nausea and Vomiting Last Admin: 06/08/25 08:02 Dose: 4 mg Phenytoin Sodium (Phenytoin Sodium Extended 100 Mg Capsule) 100 mg PO TID [facility] Last Admin: 06/08/25 14:43 Dose: 100 mg Polyethylene Glycol (Polyethylene Glycol 3350 17 Gm Powd.Pack) 17 gm PO DAILY PRN PRN Reason: Constipation Sertraline HCl (Sertraline Hcl 50 Mg Tablet) 50 mg PO DAILY [facility] Last Admin: 06/08/25 09:22 Dose: 50 mg Sodium Chloride (0.9 % Sodium Chloride Flush 3 Ml Syringe) 3 ml IVFLUSH QSHIFT [facility] Last Admin: 06/08/25 14:44 Dose: Not Given Home Medications ?Medication ?Instructions ?Recorded ?Confirmed ?Last Taken ?Type phenytoin sodium extended 100 mg 100 mg PO TID 03/12/23 06/07/25 Unknown History capsule (Dilantin Extended) metoprolol succinate 50 mg 50 mg PO DAILY 06/07/25 06/07/25 Unknown History tablet,extended release 24 hr sertraline 50 mg tablet 50 mg PO DAILY 06/07/25 06/07/25 Unknown History warfarin 5 mg tablet 5 mg PO DAILY@1800 06/07/25 06/07/25 Unknown History Physical Exam Vital Signs: Vital Signs: Last Vital Signs Temp 97.4 F 06/08/25 11:56 Pulse 78 06/08/25 11:56 Resp 18 06/08/25 11:56 BP 141/65 H 06/08/25 11:56 Pulse Ox 94 06/08/25 11:56 O2 Del Method Room Air 06/08/25 11:56 BMI result Body Mass Index 50.3 Neuro: Other: Nonfocal examination Results Labs 06/08/25 06:51 06/08/25 06:51 Labs: Short CBC 06/08/25 06/08/25 Range/Units 00:18 06:51 WBC 4.9 (4.8-10.8) X10*3/uL Hgb 10.4 L 10.5 L (12.0-16.0) g/dl Hct 33.0 L 33.2 L (37.0-47.0) % Plt Count 149 L (160-400) X10*3/uL BMP 06/08/25 06:51 Sodium 144 Potassium 4.9 Chloride 110 H Carbon Dioxide 29 BUN 19 H Creatinine 0.85 Calcium 8.2 L Liver Function 06/08/25 Range/Units 06:51 Total Bilirubin 0.3 (0.0-1.0) mg/dL AST 34 H (5-31) U/L ALT 19 (0-31) U/L Alkaline Phosphatase 110 (39-117) U/L Albumin 3.0 L (3.5-5.0) g/dL Microbiology Microbiology Results: Microbiology 06/06/25 Unknown Urine clean catch - Clean Catch Midstream Urine Culture - Final 06/06/25 18:52 Blood - Venous Blood Culture - Preliminary No growth after 24 hours. 06/06/25 18:52 Blood - Venous Blood Culture - Preliminary No growth after 24 hours. Assessment and Plan (1) History of epilepsy: Status: Acute Few details and descriptions are available about her epilepsy. She appears to been on Dilantin for a while. Recom.: Since there is an interaction between Dilantin and the anticoagulants being used, I would suggest that she be switched to levetiracetam 500 mg b.i.d. and that they Dilantin be tapered off rapidly over a 3 week. Reducing to 200 mg a day for 10 days and then 100 mg a day for 10 days after having started the the levetiracetam for at least 3 full days Procedures Date of Service Date of Service: 06/08/25
[2025-06-08 19:07] VITALS: BP 111/50; PULSE 89; RESP 18; TEMP 36.4; O2SAT 95
[2025-06-08 23:30] VITALS: BP 117/56; PULSE 80; RESP 18; TEMP 37.1; O2SAT 92
[2025-06-09 03:41] VITALS: BP 122/56; PULSE 77; RESP 18; TEMP 36.4; O2SAT 98
[2025-06-09 06:35] LABS: Hematocrit 31.8 % (37.0-47.0); Hemoglobin 10.1 g/dl (12.0-16.0)
[2025-06-09 06:36] LABS: INTERNATIONAL NORM RATIO 1.4 (0.9-1.1); Prothrombin Time 16.1 SEC (10.9-12.4)
[2025-06-09 07:39] VITALS: BP 145/66; PULSE 96; RESP 20; TEMP 36.6; O2SAT 94
[2025-06-09 11:15] VITALS: BP 147/64; PULSE 75; RESP 16; TEMP 36.9; O2SAT 97
[2025-06-09 15:23] VITALS: BP 151/66; PULSE 75; RESP 16; TEMP 36.3; O2SAT 96
[2025-06-09] MEDS: Bismuth Subsalicylate Liquid 524 MG/30 ML ORAL.SUSP 262 MG PO (16:18)
--- NOTE | 2025-06-09 17:08 | HO.PM.IMPN ---
Subjective Subjective Date of Service: 06/09/25 Interval History: Patient seen examined at bedside this morning, patient states that she needs to use the restroom, had a bowel movement, per patient bloody. Spoke with staff, with nonbloody brown stools. Subsequently during the day patient had increased bowel movements. Spoke with Cardiology, given patient's atrial fibrillation episode at [facility], planned for ablation, was sent on home warfarin, however due to patient's chronic phenytoin therapy, interacted with medication and was found to be supratherapeutic on admission. Seen by Neurology, suggested on switching to levetiracetam 500 mg b.i.d. and decreasing Dilantin, in a tapered fashion. Review of Systems Review of Systems: Yes all other systems are reviewed and are negative Physical Exam Exam: Exam: General: AxOx3, anxious/tearful Head: AT/NC ENT: Moist mucous membranes Neck: supple CVS; RRR, S1 S2 normal Lungs: Clear bilateral breath sounds, no wheezes or crackles Abd: Soft non tender, non distended Ext: Mild edema in lower extremities MSK: moving all 4 limbs Skin: Bruising noted over right knee and lower leg Psych: Cooperative with exam Neurology: no focal deficit Vital Signs: Vital Signs: Last Vital Signs Temp 97.4 F 06/09/25 15:23 Pulse 75 06/09/25 15:23 Resp 16 06/09/25 15:23 BP 151/66 H 06/09/25 15:23 Pulse Ox 96 06/09/25 15:23 O2 Del Method Room Air 06/09/25 15:23 BMI result Body Mass Index 50.3 Objective Data Active Medications Acetaminophen (Acetaminophen 325 Mg Tablet) 650 mg PO Q6H PRN PRN Reason: Pain, Mild 1-3,fever,headache Last Admin: 06/08/25 04:31 Dose: 650 mg Documented By: FLORINDA Albuterol/Ipratropium (Albuterol/Iprat 2.5/0.5mg 3 Ml Ampul.Neb) 3 ml INHALE Q4H PRN PRN Reason: Shortness of Breath/Wheezing Calcium Carbonate (Calcium Carbonate 750 Mg Tab.Chew) 750 mg PO Q4H PRN PRN Reason: Heartburn Ceftriaxone Sodium (Ceftriaxone Sodium 1 Gm Vial) 1 gm IVPUSH Q24H [facility] Last Admin: 06/08/25 21:36 Dose: 1 gm Documented By: KERMIT Levetiracetam (Levetiracetam 500 Mg Tablet) 500 mg PO BID [facility] Magnesium Hydroxide (Milk Of Magnesia 30 Ml Oral.Susp) 30 ml PO DAILY PRN PRN Reason: Constipation Melatonin (Melatonin 3 Mg Tablet) 6 mg PO BEDTIME PRN PRN Reason: Insomnia Last Admin: 06/08/25 21:36 Dose: 6 mg Documented By: KERMIT Ondansetron HCl (Ondansetron Hcl 4 Mg/2 Ml Vial) 4 mg IVPUSH Q8H PRN PRN Reason: Nausea and Vomiting Last Admin: 06/08/25 08:02 Dose: 4 mg Documented By: PARADISE Phenytoin Sodium (Phenytoin Sodium Extended 100 Mg Capsule) 100 mg PO TID [facility] Stop: 06/12/25 20:59 Phenytoin Sodium (Phenytoin Sodium Extended 100 Mg Capsule) 100 mg PO BID [facility] Stop: 06/23/25 08:59 Phenytoin Sodium (Phenytoin Sodium Extended 100 Mg Capsule) 100 mg PO DAILY [facility] Stop: 07/04/25 08:59 Polyethylene Glycol (Polyethylene Glycol 3350 17 Gm Powd.Pack) 17 gm PO DAILY PRN PRN Reason: Constipation Sertraline HCl (Sertraline Hcl 50 Mg Tablet) 50 mg PO DAILY [facility] Last Admin: 06/09/25 08:28 Dose: 50 mg Documented By: SASCHA Sodium Chloride (0.9 % Sodium Chloride Flush 3 Ml Syringe) 3 ml IVFLUSH QSHIFT [facility] Last Admin: 06/09/25 15:18 Dose: Not Given Documented By: GONZALO Non-Admin Reason: Previously Administered Labs 06/09/25 05:57 06/08/25 06:51 Labs: Laboratory Results - last 24 hr 06/09/25 05:57 PT 16.1 H D INR 1.4 H Microbiology Microbiology Results: Microbiology 06/06/25 18:52 Blood Culture - Preliminary Blood - Venous No growth after 48 hours. 06/06/25 18:52 Blood Culture - Preliminary Blood - Venous No growth after 48 hours. Assessment and Plan (1) PAF (paroxysmal atrial fibrillation): Status: Acute (2) Diarrhea: Status: Acute (3) Urinary tract infection: Status: Acute (4) Seizure disorder: Status: Acute (5) History of epilepsy: Status: Acute Plan 65-year-old Indonesian-speaking female with past medical history significant for HTN, asthma, recently diagnosed AFib, obesity, epilepsy, GERD who presented to the ED secondary to fall with head trauma. Patient had noted having vaginal/uterine bleeding prior to admission. Patient was recently at [facility] for atrial fibrillation with plans on cardiac ablation, was placed on Eliquis. Patient also on phenytoin for history of epilepsy/seizure. On arrival, patient noted to have INR 17.9, received vitamin K doses. During stay, patient episodes of bleeding, as well as anxiety. Neurology and Cardiology consulted, suggested on tapering Dilantin and switching to Keppra. Restarting Eliquis once bleeding resolved. UTI Continue ceftriaxone, with moderate leukocyte esterase, positive nitrites. Awaiting urine culture contaminated sample. We will repeat urine culture. Atrial fibrillation -at this time normal sinus rhythm, Eliquis on hold the setting of active bleeding. We will restart once bleeding resolves -cardiology following, suggested upon transitioning to Eliquis once hematuria improved. -will monitor for any signs of palpitation, shortness of breath, chest pain. History of epilepsy/seizure We will taper Dilantin, to 200 mg q.d. for 10 days, then 100 mg q.d. for 10 days after having levetiracetam started for at least 3 full days. We will initiate levetiracetam 500 mg b.i.d. monitor for any breakthrough seizures. Neurology consulted, we will continue per their recommendations in regards to adjusting seizure medications as mentioned above. Diarrhea -patient at this time on Rocephin for UTI, we will order C diff. Pepto-Bismol once ordered. -rest of GI panel negative LARRY -we will give Ativan p.r.n., if no improvement, we will consult Psychiatry. 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 C diff ordered, we will give medication for anxiety Quality Stroke Does the patient have a stroke diagnosis?: No Reason for No Anti-thrombotic by Day Two: Contraindicated (Elevated INR) VTE Prior VTE?: No VTE Risk Level:: Medical - low VTE Device Contraindication: N/A - Device Ordered VTE Drug Contraindication: Treatment Not Indicated
[2025-06-09 19:17] VITALS: BP 133/62; PULSE 79; RESP 20; TEMP 36.8; O2SAT 95
[2025-06-09 19:55] LABS: CDiff Gene PCR NEGATIVE (Negative)
[2025-06-09] MEDS: 0.9 % Sodium Chloride Flush 3 ML SYRINGE IVFLUSH (21:23)
[2025-06-10] VITALS (7 sets, daily range): BP systolic 109–147; BP diastolic 56–70; PULSE 72–82; RESP 16–20; TEMP 36.1–36.8; O2SAT 94–97
[2025-06-10 04:20] LABS: Appearance Urine Clear; Glucose Urine UA Negative (Negative); PH 7.0 (5.0-9.0); Specific Gravity - Urine 1.020 (1.005-1.025); UMIC TRIGGER UACC YES
[2025-06-10] MEDS: 0.9 % Sodium Chloride Flush 3 ML SYRINGE IVFLUSH ×2 (08:13→22:13)
[2025-06-10] MEDS: Lidocaine 4 % Patch ADH..PATCH 1 PATCH TRANSDERMA (10:30)
--- NOTE | 2025-06-10 15:22 | MHC.CM.PN ---
Per rounds, pt improving, med changes made, anticipate DC 06/13/25.
--- NOTE | 2025-06-10 16:40 | P.PNIM_ITS ---
Subjective Subjective Date of Service: 06/10/25 Interval History: Patient seen and examined at bedside this morning, patient states that she is feeling better than before. On labs, patient with moderate amount of blood, no longer anxious. Patient did mentioned that she is experiencing right shoulder pain, agreed with taking lidocaine patch. Review of Systems Review of Systems: Yes all other systems are reviewed and are negative Physical Exam 2 Exam: Exam: General: AxOx3, in no distress Head: AT/NC ENT: Moist mucous membranes Neck: supple CVS; RRR, S1 S2 normal Lungs: Clear bilateral breath sounds, no wheezes or crackles Abd: Soft non tender, non distended Ext: Mild edema in lower extremities MSK: moving all 4 limbs Skin: Bruising noted over right knee and lower leg Psych: Cooperative with exam Neurology: no focal deficit Vital Signs: Vital Signs: Last Vital Signs Temp 97.9 F 06/10/25 16:00 Pulse 79 06/10/25 16:00 Resp 16 06/10/25 16:00 BP 120/56 L 06/10/25 16:00 Pulse Ox 96 06/10/25 16:00 O2 Del Method Room Air 06/10/25 16:00 BMI result Body Mass Index 50.3 Objective Data Active Medications Acetaminophen (Acetaminophen 325 Mg Tablet) 650 mg PO Q6H PRN PRN Reason: Pain, Mild 1-3,fever,headache Last Admin: 06/08/25 04:31 Dose: 650 mg Documented By: FLORINDA Albuterol/Ipratropium (Albuterol/Iprat 2.5/0.5mg 3 Ml Ampul.Neb) 3 ml INHALE Q4H PRN PRN Reason: Shortness of Breath/Wheezing Calcium Carbonate (Calcium Carbonate 750 Mg Tab.Chew) 750 mg PO Q4H PRN PRN Reason: Heartburn Ceftriaxone Sodium (Ceftriaxone Sodium 1 Gm Vial) 1 gm IVPUSH Q24H [facility] Stop: 06/14/25 20:59 Last Admin: 06/09/25 21:23 Dose: 1 gm Documented By: SHERIDAN Levetiracetam (Levetiracetam 500 Mg Tablet) 500 mg PO BID [facility] Last Admin: 06/10/25 08:14 Dose: 500 mg Documented By: GONZALO Lidocaine (Lidocaine 4 % Patch Adh..Patch) 1 patch TRANSDERMA DAILY [facility]; Protocol Stop: 06/15/25 09:59 Last Admin: 06/10/25 10:30 Dose: 1 patch Documented By: GONZALO Lorazepam (Lorazepam 0.5 Mg Tablet) 0.5 mg PO Q8H PRN PRN Reason: Anxiety Last Admin: 06/09/25 18:29 Dose: 0.5 mg Documented By: GONZALO Magnesium Hydroxide (Milk Of Magnesia 30 Ml Oral.Susp) 30 ml PO DAILY PRN PRN Reason: Constipation Melatonin (Melatonin 3 Mg Tablet) 6 mg PO BEDTIME PRN PRN Reason: Insomnia Last Admin: 06/09/25 21:36 Dose: 6 mg Documented By: SHERIDAN Ondansetron HCl (Ondansetron Hcl 4 Mg/2 Ml Vial) 4 mg IVPUSH Q8H PRN PRN Reason: Nausea and Vomiting Last Admin: 06/08/25 08:02 Dose: 4 mg Documented By: PARADISE Phenytoin Sodium (Phenytoin Sodium Extended 100 Mg Capsule) 100 mg PO TID [facility] Stop: 06/12/25 20:59 Last Admin: 06/10/25 14:07 Dose: 100 mg Documented By: GONZALO Phenytoin Sodium (Phenytoin Sodium Extended 100 Mg Capsule) 100 mg PO BID [facility] Stop: 06/23/25 08:59 Phenytoin Sodium (Phenytoin Sodium Extended 100 Mg Capsule) 100 mg PO DAILY [facility] Stop: 07/04/25 08:59 Polyethylene Glycol (Polyethylene Glycol 3350 17 Gm Powd.Pack) 17 gm PO DAILY PRN PRN Reason: Constipation Sertraline HCl (Sertraline Hcl 50 Mg Tablet) 50 mg PO DAILY [facility] Last Admin: 06/10/25 08:14 Dose: 50 mg Documented By: GONZALO Sodium Chloride (0.9 % Sodium Chloride Flush 3 Ml Syringe) 3 ml IVFLUSH QSHIFT [facility] Last Admin: 06/10/25 15:18 Dose: Not Given Documented By: GONZALO Non-Admin Reason: Previously Administered Labs 06/09/25 05:57 06/08/25 06:51 Labs: Laboratory Results - last 24 hr 06/09/25 06/10/25 18:36 03:57 Urine Color Yellow Urine Appearance Clear Urine pH 7.0 Ur Specific [place] 1.020 Urine Protein Negative Urine Glucose (UA) Negative Urine Ketones Negative Urine Blood Moderate (2+) H Urine Nitrite Negative Ur Leukocyte Esterase Negative Urine RBC >20 H Urine WBC 0-5 Ur Squamous Epith Cells 6-10 Urine Bacteria None Seen Hyaline Casts 0-2 C. difficile Tox B Gene NEGATIVE Assessment and Plan (1) Afib: Status: Acute (2) Diarrhea: Status: Acute (3) Seizure disorder: Status: Acute (4) Urinary tract infection: Status: Acute Plan Assessment: 65-year-old Korean-speaking female with past medical history significant for HTN, asthma, recently diagnosed AFib, obesity, epilepsy, GERD who presented to the ED secondary to fall with head trauma. Patient had noted having vaginal/uterine bleeding prior to admission. Patient was recently at [facility] for atrial fibrillation with plans on cardiac ablation, was placed on Eliquis. Patient also on phenytoin for history of epilepsy/seizure. On arrival, patient noted to have INR 17.9, received vitamin K doses. During stay, patient episodes of bleeding, as well as anxiety. Neurology and Cardiology consulted, suggested on tapering Dilantin and switching to Keppra. Restarting Eliquis once bleeding resolved. UTI hematuria, improving Continue ceftriaxone w/ EoT on 06/14, with moderate leukocyte esterase, positive nitrites. Awaiting urine culture contaminated sample. We will repeat urine culture. Atrial fibrillation -at this time normal sinus rhythm, Eliquis on hold the setting of active bleeding. We will restart once bleeding resolves -cardiology following, suggested upon transitioning to Eliquis once hematuria improved. -will monitor for any signs of palpitation, shortness of breath, chest pain. History of epilepsy/seizure continue to taper Dilantin, to 200 mg q.d. for 10 days, then 100 mg q.d. for 10 days after having levetiracetam started for at least 3 full days. We will initiate levetiracetam 500 mg b.i.d. monitor for any breakthrough seizures. Neurology consulted, we will continue per their recommendations in regards to adjusting seizure medications as mentioned above. Diarrhea -patient at this time on Rocephin for UTI. C diff negative, loperamide ordered. -rest of GI panel negative LARRY, stable -we will give Ativan p.r.n., if no improvement, we will consult Psychiatry. 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 DVT prophylaxis: hold secondary to hematuria Full code status Quality Stroke Does the patient have a stroke diagnosis?: No Reason for No Anti-thrombotic by Day Two: Contraindicated (Elevated INR) VTE Prior VTE?: No VTE Risk Level:: Medical - low VTE Device Contraindication: N/A - Device Ordered VTE Drug Contraindication: Treatment Not Indicated
--- NOTE | 2025-06-10 20:26 | PC.NURSE ---
Pt. informed of transfer to med surg. Pt. had soft brown without blood noted BM on commode at 1999. 1 assist . Pt. denies dizziness. Pt. requests med antidiarrheal. No current order. Telephone report to Kellie of Med/surg and informed of pt. request for antidiarreal. Transferred via [facility].
[2025-06-11 03:38] VITALS: BP 133/60; PULSE 71; RESP 18; TEMP 35.8; O2SAT 96
--- NOTE | 2025-06-11 06:24 | PC.NURSE ---
Pt came from [place] around 2100, pt placed in room, alert and oriented, denies any pain, seizure precautions maintained, meds tolerated, slept fairly.
[2025-06-11] MEDS: Lidocaine 4 % Patch ADH..PATCH 1 PATCH TRANSDERMA (07:30)
[2025-06-11] MEDS: 0.9 % Sodium Chloride Flush 3 ML SYRINGE IVFLUSH ×3 (07:36→21:32)
[2025-06-11 08:00] VITALS: BP 145/65; PULSE 68; RESP 16; TEMP 36; O2SAT 95
--- NOTE | 2025-06-11 11:23 | P.PNIM_ITS ---
Subjective Subjective Date of Service: 06/11/25 Interval History: Patient seen examined at bedside this morning, no acute respiratory distress per patient stated that she feels better, has only had 1 bowel movement, nonbloody. Denies any abdominal pain. Measures that her right shoulder pain has greatly improved. Today's is going to be patient 3rd day started on Keppra. Physical Exam 2 Exam: Exam: General: AxOx3, in no distress Head: AT/NC ENT: Moist mucous membranes Neck: supple CVS; RRR, S1 S2 normal Lungs: Clear bilateral breath sounds, no wheezes or crackles Abd: Soft non tender, non distended Ext: Mild edema in lower extremities MSK: moving all 4 limbs Psych: Cooperative with exam Neurology: no focal deficit Vital Signs: Vital Signs: Last Vital Signs Temp 96.8 F 06/11/25 08:00 Pulse 68 06/11/25 08:00 Resp 16 06/11/25 08:00 BP 145/65 H 06/11/25 08:00 Pulse Ox 95 06/11/25 08:00 O2 Del Method Room Air 06/11/25 08:00 BMI result Body Mass Index 50.3 Objective Data Active Medications Acetaminophen (Acetaminophen 325 Mg Tablet) 650 mg PO Q6H PRN PRN Reason: Pain, Mild 1-3,fever,headache Last Admin: 06/11/25 07:35 Dose: 650 mg Documented By: FABIANA Albuterol/Ipratropium (Albuterol/Iprat 2.5/0.5mg 3 Ml Ampul.Neb) 3 ml INHALE Q4H PRN PRN Reason: Shortness of Breath/Wheezing Calcium Carbonate (Calcium Carbonate 750 Mg Tab.Chew) 750 mg PO Q4H PRN PRN Reason: Heartburn Ceftriaxone Sodium (Ceftriaxone Sodium 1 Gm Vial) 1 gm IVPUSH Q24H [facility] Stop: 06/14/25 20:59 Last Admin: 06/10/25 22:13 Dose: 1 gm Documented By: CASTILM Levetiracetam (Levetiracetam 500 Mg Tablet) 500 mg PO BID [facility] Last Admin: 06/11/25 07:36 Dose: 500 mg Documented By: FABIANA Lidocaine (Lidocaine 4 % Patch Adh..Patch) 1 patch TRANSDERMA DAILY [facility]; Protocol Stop: 06/15/25 09:59 Last Admin: 06/11/25 07:30 Dose: 1 patch Documented By: FABIANA Lorazepam (Lorazepam 0.5 Mg Tablet) 0.5 mg PO Q8H PRN PRN Reason: Anxiety Last Admin: 06/09/25 18:29 Dose: 0.5 mg Documented By: GONZALO Magnesium Hydroxide (Milk Of Magnesia 30 Ml Oral.Susp) 30 ml PO DAILY PRN PRN Reason: Constipation Melatonin (Melatonin 3 Mg Tablet) 6 mg PO BEDTIME PRN PRN Reason: Insomnia Last Admin: 06/10/25 22:24 Dose: 6 mg Documented By: CASTILM Ondansetron HCl (Ondansetron Hcl 4 Mg/2 Ml Vial) 4 mg IVPUSH Q8H PRN PRN Reason: Nausea and Vomiting Last Admin: 06/11/25 10:13 Dose: 4 mg Documented By: FAIBANA Phenytoin Sodium (Phenytoin Sodium Extended 100 Mg Capsule) 100 mg PO TID [facility] Stop: 06/12/25 20:59 Last Admin: 06/11/25 07:34 Dose: 100 mg Documented By: FABIANA Phenytoin Sodium (Phenytoin Sodium Extended 100 Mg Capsule) 100 mg PO BID [facility] Stop: 06/23/25 08:59 Phenytoin Sodium (Phenytoin Sodium Extended 100 Mg Capsule) 100 mg PO DAILY [facility] Stop: 07/04/25 08:59 Polyethylene Glycol (Polyethylene Glycol 3350 17 Gm Powd.Pack) 17 gm PO DAILY PRN PRN Reason: Constipation Sertraline HCl (Sertraline Hcl 50 Mg Tablet) 50 mg PO DAILY [facility] Last Admin: 06/11/25 07:36 Dose: 50 mg Documented By: FABIANA Sodium Chloride (0.9 % Sodium Chloride Flush 3 Ml Syringe) 3 ml IVFLUSH QSHIFT [facility] Last Admin: 06/11/25 07:36 Dose: 3 ml Documented By: FABIANA Labs 06/09/25 05:57 06/08/25 06:51 Assessment and Plan (1) Afib: Status: Acute (2) Urinary tract infection: Status: Inactive (3) Seizure disorder: Status: Acute (4) Generalized anxiety disorder: Status: Acute Plan Assessment: 65-year-old Citizen Of [place]-speaking female with past medical history significant for HTN, asthma, recently diagnosed AFib, obesity, epilepsy, GERD who presented to the ED secondary to fall with head trauma. Patient had noted having vaginal/uterine bleeding prior to admission. Patient was recently at [facility] for atrial fibrillation with plans on cardiac ablation, was placed on Eliquis. Patient also on phenytoin for history of epilepsy/seizure. On arrival, patient noted to have INR 17.9, received vitamin K doses. During stay, patient episodes of bleeding, as well as anxiety. Neurology and Cardiology consulted, suggested on tapering Dilantin and switching to Keppra. Restarting Eliquis once bleeding resolved. UTI hematuria, improving Continue ceftriaxone w/ EoT on 06/14, with moderate leukocyte esterase, positive nitrites. repeat UA negative for LE and nitrites. will likely transition to PO tomorrow and discharge with PO abs w. EoT in 06/14 Atrial fibrillation -at this time normal sinus rhythm, Eliquis on hold the setting of active bleeding. We will restart once bleeding resolves -cardiology following, suggested upon transitioning to Eliquis once hematuria improved. -will monitor for any signs of palpitation, shortness of breath, chest pain. History of epilepsy/seizure continue to taper Dilantin, to 200 mg q.d. for 10 days, then 100 mg q.d. for 10 days after having levetiracetam started for at least 3 full days. Monitor for any breakthrough seizures. Neurology consulted, we will continue per their recommendations in regards to adjusting seizure medications as mentioned above. Diarrhea, improved -C diff negative and GI panel negative -Will give loperamide PRN LARRY, stable -we will give Ativan p.r.n., if no improvement, we will consult Psychiatry. 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 Patient does have report of chronic Follow-up as an outpatient with surgery if indicated Right parotid lesion, pleomorphic adenoma Noted on CT of the chest Follow-up can be done as an outpatient MRI is recommended Diverticulosis Patient currently asymptomatic Follow up w/ GI in outpatient setting, high fiber diet Hepatic steatosis Chronic condition LFTs normal Patient does not use alcohol regularly Right shoulder pain, improved xray reviewed, continue lidocaine patches Morbid Obesity -counselling given on imporatance of decreasing DVT prophylaxis: hold secondary to hematuria Full code status Quality Stroke Does the patient have a stroke diagnosis?: No Reason for No Anti-thrombotic by Day Two: Contraindicated (Elevated INR) VTE Prior VTE?: No VTE Risk Level:: Medical - low VTE Device Contraindication: N/A - Device Ordered VTE Drug Contraindication: Treatment Not Indicated
[2025-06-11 15:29] VITALS: BP 116/55; PULSE 72; RESP 16; TEMP 36.1; O2SAT 92
[2025-06-11 20:00] VITALS: BP 122/56; PULSE 70; RESP 18; TEMP 36.5; O2SAT 95
[2025-06-12 04:00] VITALS: BP 132/61; PULSE 76; RESP 18; TEMP 36.2; O2SAT 94
--- NOTE | 2025-06-12 06:02 | PC.NURSE ---
Pt seen on bed alert and oriented, still endorsing right shoulder pain, Lidocaine patch intact, offered Tylenol but refused, claimed feeling anxious and wanted some sleep med, offered Melatonin but refsued, Lorazepam po given, rest of meds tolerated, no seizure activity noted, slept failry.
[2025-06-12 07:48] VITALS: BP 143/63; PULSE 72; RESP 14; TEMP 36; O2SAT 95
[2025-06-12] MEDS: 0.9 % Sodium Chloride Flush 3 ML SYRINGE IVFLUSH ×3 (08:23→20:38)
[2025-06-12] MEDS: Lidocaine 4 % Patch ADH..PATCH 1 PATCH TRANSDERMA (08:25)
--- NOTE | 2025-06-12 12:50 | HO.PM.IMPN ---
Subjective Subjective Date of Service: 06/12/25 Interval History: Patient seen examined at bedside this morning, in no acute respiratory distress. The patient states that she has not had any more bloody bowel movements, or hematuria. Patient states that she has been feeling better, however persists with right shoulder pain. Review of Systems Review of Systems: Yes all other systems are reviewed and are negative Physical Exam Exam: Exam: General: AxOx3, in no distress Head: AT/NC ENT: Moist mucous membranes Neck: supple CVS; RRR, S1 S2 normal Lungs: Clear bilateral breath sounds, no wheezes or crackles Abd: Soft non tender, non distended Ext: Mild edema in lower extremities MSK: moving all 4 limbs Psych: Cooperative with exam Neurology: no focal deficit Vital Signs: Vital Signs: Last Vital Signs Temp 96.8 F 06/12/25 07:48 Pulse 72 06/12/25 07:48 Resp 14 06/12/25 07:48 BP 143/63 H 06/12/25 07:48 Pulse Ox 95 06/12/25 07:48 O2 Del Method Room Air 06/12/25 07:48 BMI result Body Mass Index 50.3 Objective Data Active Medications Acetaminophen (Acetaminophen 325 Mg Tablet) 650 mg PO Q6H PRN PRN Reason: Pain, Mild 1-3,fever,headache Last Admin: 06/11/25 14:53 Dose: 650 mg Documented By: FABIANA Albuterol/Ipratropium (Albuterol/Iprat 2.5/0.5mg 3 Ml Ampul.Neb) 3 ml INHALE Q4H PRN PRN Reason: Shortness of Breath/Wheezing Calcium Carbonate (Calcium Carbonate 750 Mg Tab.Chew) 750 mg PO Q4H PRN PRN Reason: Heartburn Last Admin: 06/11/25 21:31 Dose: 750 mg Documented By: JING Ceftriaxone Sodium (Ceftriaxone Sodium 1 Gm Vial) 1 gm IVPUSH Q24H [facility] Stop: 06/14/25 20:59 Last Admin: 06/11/25 21:31 Dose: 1 gm Documented By: JING Levetiracetam (Levetiracetam 500 Mg Tablet) 500 mg PO BID [facility] Last Admin: 06/12/25 08:24 Dose: 500 mg Documented By: FABIANA Lidocaine (Lidocaine 4 % Patch Adh..Patch) 1 patch TRANSDERMA DAILY [facility]; Protocol Stop: 06/15/25 09:59 Last Admin: 06/12/25 08:25 Dose: 1 patch Documented By: FABIANA Lorazepam (Lorazepam 0.5 Mg Tablet) 0.5 mg PO Q8H PRN PRN Reason: Anxiety Last Admin: 06/11/25 21:32 Dose: 0.5 mg Documented By: JING Magnesium Hydroxide (Milk Of Magnesia 30 Ml Oral.Susp) 30 ml PO DAILY PRN PRN Reason: Constipation Melatonin (Melatonin 3 Mg Tablet) 6 mg PO BEDTIME PRN PRN Reason: Insomnia Last Admin: 06/10/25 22:24 Dose: 6 mg Documented By: JING Ondansetron HCl (Ondansetron Hcl 4 Mg/2 Ml Vial) 4 mg IVPUSH Q8H PRN PRN Reason: Nausea and Vomiting Last Admin: 06/11/25 10:13 Dose: 4 mg Documented By: FABIANA Phenytoin Sodium (Phenytoin Sodium Extended 100 Mg Capsule) 100 mg PO TID [facility] Stop: 06/12/25 20:59 Last Admin: 06/12/25 08:25 Dose: 100 mg Documented By: FABIANA Phenytoin Sodium (Phenytoin Sodium Extended 100 Mg Capsule) 100 mg PO BID [facility] Stop: 06/23/25 08:59 Phenytoin Sodium (Phenytoin Sodium Extended 100 Mg Capsule) 100 mg PO DAILY [facility] Stop: 07/04/25 08:59 Polyethylene Glycol (Polyethylene Glycol 3350 17 Gm Powd.Pack) 17 gm PO DAILY PRN PRN Reason: Constipation Sertraline HCl (Sertraline Hcl 50 Mg Tablet) 50 mg PO DAILY [facility] Last Admin: 06/12/25 08:25 Dose: 50 mg Documented By: FABIANA Sodium Chloride (0.9 % Sodium Chloride Flush 3 Ml Syringe) 3 ml IVFLUSH QSHIFT [facility] Last Admin: 06/12/25 08:23 Dose: 3 ml Documented By: FABIANA Labs 06/09/25 05:57 06/08/25 06:51 Microbiology Microbiology Results: Microbiology 06/06/25 18:52 Blood Culture - Final Blood - Venous No growth after 5 days. 06/06/25 18:52 Blood Culture - Final Blood - Venous No growth after 5 days. Assessment and Plan (1) Afib: Status: Acute (2) Morbid obesity: Status: Acute (3) Seizure disorder: Status: Acute (4) Right shoulder tendinitis: Status: Acute Plan Assessment: 65-year-old [place]-speaking female with past medical history significant for HTN, asthma, recently diagnosed AFib, obesity, epilepsy, GERD who presented to the ED secondary to fall with head trauma. Patient had noted having vaginal/uterine bleeding prior to admission. Patient was recently at [facility] for atrial fibrillation with plans on cardiac ablation, was placed on Eliquis. Patient also on phenytoin for history of epilepsy/seizure. On arrival, patient noted to have INR 17.9, received vitamin K doses. During stay, patient episodes of bleeding, as well as anxiety. Neurology and Cardiology consulted, suggested on tapering Dilantin and switching to Keppra. Restarting Eliquis once bleeding resolved. UTI, improving hematuria, resolved Continue ceftriaxone w/ EoT on 06/14, with moderate leukocyte esterase, positive nitrites. repeat UA negative for LE and nitrites. Atrial fibrillation -at this time normal sinus rhythm, no bloody bowel movements or hematuria. Will restart Eliquis, patient already completing 3 full days of levetiracetam. -cardiology following -will monitor for any signs of palpitation, shortness of breath, chest pain, bleeding History of epilepsy/seizure will taper Dilantin, to 200 mg q.d. for 10 days starting tomorrow, then 100 mg q.d. for 10 days after having levetiracetam started for at least 3 full days. Monitor for any breakthrough seizures. Neurology consulted, we will continue per their recommendations in regards to adjusting seizure medications as mentioned above. Diarrhea, resolved -C diff negative and GI panel negative -Will give loperamide PRN LARRY, stable -we will give Ativan p.r.n., if no improvement, we will consult Psychiatry. 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 Patient does have report of chronic Follow-up as an outpatient with surgery if indicated Right parotid lesion, pleomorphic adenoma Noted on CT of the chest Follow-up can be done as an outpatient MRI is recommended Diverticulosis Patient currently asymptomatic Follow up w/ GI in outpatient setting, high fiber diet Hepatic steatosis Chronic condition LFTs normal Patient does not use alcohol regularly Right shoulder tendinitis, improved xray reviewed, continue lidocaine patches and initaite celebrex x 5 days, as this has less GI side effects Morbid Obesity -counselling given on imporatance of decreasing DVT prophylaxis: hold secondary to hematuria Full code status Quality Stroke Does the patient have a stroke diagnosis?: No Reason for No Anti-thrombotic by Day Two: Contraindicated (Elevated INR) VTE Prior VTE?: No VTE Risk Level:: Medical - low VTE Device Contraindication: N/A - Device Ordered VTE Drug Contraindication: Treatment Not Indicated
[2025-06-12 13:28] LABS: INTERNATIONAL NORM RATIO 1.1 (0.9-1.1); Prothrombin Time 12.8 SEC (10.9-12.4)
[2025-06-12 15:34] VITALS: BP 144/63; PULSE 71; RESP 16; TEMP 36.3; O2SAT 95
[2025-06-12 20:00] VITALS: BP 118/56; PULSE 70; RESP 17; TEMP 36; O2SAT 94
--- NOTE | 2025-06-12 22:36 | PC.NURSE ---
Pt requesting her Dilantin but order not available until tomorrow so this RN messaged LORNE Castillo but was informed that the dose is being tapered down. The pt was educated on why she was not given a dose tonight. Patients respirations even and unlabored.
[2025-06-13 03:54] VITALS: BP 111/53; PULSE 66; RESP 18; TEMP 36.1; O2SAT 93
--- NOTE | 2025-06-13 03:58 | PC.NURSE ---
Pt refusing seizure pads for the bed. This RN explained the importance of the pads but pt declined use of them over night. Pts vital signs stable. Will continue to monitor pt.
[2025-06-13 06:55] VITALS: BP 127/62; PULSE 65; RESP 16; TEMP 36; O2SAT 93
[2025-06-13 09:02] VITALS: BP 127/62; PULSE 65; O2SAT 93
[2025-06-13] MEDS: 0.9 % Sodium Chloride Flush 3 ML SYRINGE IVFLUSH (09:06)
[2025-06-13] MEDS: Lidocaine 4 % Patch ADH..PATCH 1 PATCH TRANSDERMA (09:07)
--- NOTE | 2025-06-13 14:02 | W.MHC.F2F ---
Service Date Service Date: 06/13/25 Reasons for Services Homebound: Leaving the home is medically contraindicated at this time without the asist of a device and/or another person due th the listed conditions above and below. Certification: Based on the above findings, I certify that this patient is confined to the home and needs intermittent mcc care, physical therapy and/or speech therapy, or continues to need occupational therapy. The patient is under my care, and I have initiated the establishment of the plan of care. The patient will be followed by a physician who will periodically review the plan of care. Time Spent With Patient Time: Total time managing care of this patient today ____ minutes.
--- NOTE | 2025-06-13 14:03 | W.MHC.F2F ---
Service Date Service Date: 06/13/25 Encounter Date of encounter: 06/13/25 Encounter: 65-year-old [place]-speaking female with past medical history significant for HTN, asthma, recently diagnosed AFib, obesity, epilepsy, GERD who presented to the ED secondary to fall with head trauma. Patient had noted having vaginal/uterine bleeding prior to admission. Patient was recently at [facility] for atrial fibrillation with plans on cardiac ablation, was placed on Eliquis. Patient also on phenytoin for history of epilepsy/seizure. On arrival, patient noted to have INR 17.9, received vitamin K doses. During stay, patient episodes of bleeding, as well as anxiety. Neurology and Cardiology consulted, suggested on tapering Dilantin and switching to Keppra. yesterday was restarted on Eliquis, at this time with no further bleeding noted. Patient with ambulatory dysfunction, generalized weakness and right shoulder tenderness which limits range of motion. Reasons for Services Signs and symptoms assessed: ambulatory dysfunction, generalized weakness and right shoulder pain Reason for long term: medication management, medication treatment and teach disease management Reason for physical therapy: home safety and mobility, therapeutic exercises, restore joint function, gait/transfer training, assess need for DME, ADL training, energy conservation and other Reason for occupational therapy: home safety and mobility, therapeutic exercises, restore joint function, gait/transfer training, assess need for DME, ADL training, energy conservation and other MD Overseeing Care: Ashely Silva Homebound: Leaving the home is medically contraindicated at this time without the asist of a device and/or another person due th the listed conditions above and below. Reason homebound: weakness related to hospital stay Certification: Based on the above findings, I certify that this patient is confined to the home and needs intermittent long term care, physical therapy and/or speech therapy, or continues to need occupational therapy. The patient is under my care, and I have initiated the establishment of the plan of care. The patient will be followed by a physician who will periodically review the plan of care. Time Spent With Patient Time: Total time managing care of this patient today ____ minutes.
[2025-06-13 15:42] VITALS: BP 118/56; PULSE 81; RESP 18; TEMP 36.3; O2SAT 94
--- NOTE | 2025-06-13 16:17 | PM.DS ---
DS: Providers Provider Date of Service: 06/13/25 Date of admission: 06/06/25 22:11 Date of discharge: 06/13/25 Primary care physician: Asehly Silva MD Consults: 06/06/25 23:22 Consult to Cardiology Routine Consulting Provider: [facility] Reason for consultation: chest pain, seen at [facility] on eliquis and coumadin? INR 17 Has provider been notified: No 06/08/25 14:18 Consult to Neurology Routine Consulting Provider: [facility] Reason for consultation: ?? re phenytoin, if AED really needed, phenytoin interacts with doac Attending physician on discharge: Abram Salazar Discharging clinician: Abram Salazar DS: Diagnosis Discharge Diagnosis (1) Afib: Status: Acute (2) Morbid obesity: Status: Acute (3) Seizure disorder: Status: Acute (4) Right shoulder tendinitis: Status: Acute DS: Summary Hospital Course Hospital Course: 65-year-old [place]-speaking female with past medical history significant for HTN, asthma, recently diagnosed AFib, obesity, epilepsy, GERD who presented to the ED secondary to fall with head trauma. Patient had noted having vaginal/uterine bleeding prior to admission. Patient was recently at [facility] for atrial fibrillation with plans on cardiac ablation, was placed on Eliquis. Patient also on phenytoin for history of epilepsy/seizure. On arrival, patient noted to have INR 17.9, received vitamin K doses. During stay, patient episodes of bleeding, as well as anxiety. Neurology and Cardiology consulted, suggested on tapering Dilantin and switching to Keppra. yesterday was restarted on Eliquis, at this time with no further bleeding noted. Patient with ambulatory dysfunction, generalized weakness and right shoulder tenderness which limits range of motion. UTI, improved s/p ceftriaxone, will send cefpodoxime PO BID x 1 day to complete treatment tomorrow. Atrial fibrillation -at this time normal sinus rhythm, no bloody bowel movements or hematuria. continue eliquis, follow up w/ cardiology in outpatient setting. History of epilepsy/seizure continue to taper Dilantin 200 mg q.d. for 10 days, then 100 mg q.d. for 10 days after having levetiracetam started for at least 3 full days. Monitor for any breakthrough seizures. 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 Per physical therapy, patient to have home health care services with PT in outpatient setting. All new and continued medications were discussed in depth with the patient, and new prescriptions were given directly to patient and/or verification of the prescriptions were sent to patient's preferred pharmacy directly. All side effects were discussed. Follow-up instructions were given. Patient voiced understanding. Patient was given the opportunity ask questions and express concerns, all of which were answered to their satisfaction. Patient was instructed to follow-up with her PCP within 3 to 10 days of discharge and head to the nearest emergency room or call 911 if symptoms worsen or new symptoms develop. This is a summary of the patient's stay; for more complete details please see chart. More than 35 minutes was spent with patient regarding workup, diagnosis and follow-up. Time Attestation Discharge Coordination Time (in mins): greater than 30 minutes Quality: Safe Use of Opioids Does Pt have an Active Cancer Diagnosis on the Problem List?: No Quality: Stroke Does the patient have a stroke diagnosis?: No Physical Exam Exam: Exam: General: AxOx3, in no distress Head: AT/NC ENT: Moist mucous membranes Neck: supple CVS; RRR, S1 S2 normal Lungs: Clear bilateral breath sounds, no wheezes or crackles Abd: Soft non tender, non distended Ext: Mild edema in lower extremities MSK: moving all 4 limbs Psych: Cooperative with exam Neurology: no focal deficit Vital Signs: Vital Signs: Last Vital Signs Temp 97.4 F 06/13/25 15:42 Pulse 81 06/13/25 15:42 Resp 18 06/13/25 15:42 BP 118/56 L 06/13/25 15:42 Pulse Ox 94 06/13/25 15:42 O2 Del Method Room Air 06/13/25 15:42 BMI result Body Mass Index 50.3 Discharge Plan Discharge Anticipated Discharge Date/Time: 06/13/25 13:57 Patient Disposition: Home Health Service Discharge Diagnosis: Afib, UTI, supratherapeutic INR Referrals: Ashely Silva MD [Primary Care Provider, Internal Medicine] - 1 Week Eliseo Perez MD [Physician, Neurology] - 2 Weeks Nathaniel Peña MD [Physician, Cardiology] - 2 Weeks Discharge Medications: New cefpodoxime 100 mg tablet 100 mg PO Q12H Qty: 2 0RF Rx Instructions: jersey kendrick pastilla con shivani cuello 06/14/2025 Eliquis 5 mg tablet 5 mg PO BID Qty: 60 0RF celecoxib 200 mg Capsule 200 mg PO DAILY 4 Days Qty: 4 0RF levetiracetam 500 mg Tablet 500 mg PO BID Qty: 90 0RF phenytoin sodium extended [Dilantin Extended] 100 mg Capsule 100 mg PO BID 10 Days Qty: 20 0RF phenytoin sodium extended [Dilantin Extended] 100 mg Capsule 100 mg PO DAILY 10 Days Qty: 10 0RF Rx Instructions: comenzar a jersey a partir de 06/23 lidocaine [Lidocaine Pain Relief] 4 % Adhesive Patch,Medicated 1 patch transdermal DAILY Qty: 5 0RF Protocol: Apply to: Apply to: right shoulder pantoprazole [Protonix] 40 mg tablet,delayed release (DR/EC) 40 mg PO DAILY 5 Days Qty: 5 0RF Continued metoprolol succinate 50 mg tablet extended release 24 hr 50 mg PO DAILY sertraline 50 mg tablet 50 mg PO DAILY Discontinued warfarin 5 mg tablet 5 mg PO DAILY@1800 phenytoin sodium extended [Dilantin Extended] 100 mg Capsule 100 mg PO TID Discharge Orders: Discharge Order (Routine); Ordered 06/13/25 Ordered By: Abram Salazar Activity on Discharge: As tolerated Stand Alone Forms: Patient Portal Discharge page Print Language: [place] Care Plan Goals: continue to treat Urinary tract infection, afib and seizures Health Concerns: seizures, afib Plan of Treatment: UTI, improved s/p ceftriaxone, will send cefpodoxime PO BID x 1 day to complete treatment tomorrow. Atrial fibrillation -at this time normal sinus rhythm, no bloody bowel movements or hematuria. continue eliquis, follow up w/ cardiology in outpatient setting. History of epilepsy/seizure continue to taper Dilantin 200 mg q.d. for 10 days, then 100 mg q.d. for 10 days after having levetiracetam started for at least 3 full days. Monitor for any breakthrough seizures. 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 Per physical therapy, patient to have home health care services with PT in outpatient setting. Assessment: 65-year-old [place]-speaking female with past medical history significant for HTN, asthma, recently diagnosed AFib, obesity, epilepsy, GERD who presented to the ED secondary to fall with head trauma. Patient had noted having vaginal/uterine bleeding prior to admission. Patient was recently at [facility] for atrial fibrillation with plans on cardiac ablation, was placed on Eliquis. Patient also on phenytoin for history of epilepsy/seizure. On arrival, patient noted to have INR 17.9, received vitamin K doses. During stay, patient episodes of bleeding, as well as anxiety. Neurology and Cardiology consulted, suggested on tapering Dilantin and switching to Keppra. yesterday was restarted on Eliquis, at this time with no further bleeding noted. Patient with ambulatory dysfunction, generalized weakness and right shoulder tenderness which limits range of motion. Patient Instructions: A-fib (Atrial Fibrillation) (DC), Rotator Cuff Tendinitis (DC), Epilepsy (DC)
--- NOTE | 2025-06-13 16:19 | MHC.CM.PN ---
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
== END 2025-06-13 17:15 | disposition home health service (06) | DRG 689 ==
LOC: HO.ED 18:31 → HO.EDOVER 22:33 → HO.IMC 06-07 14:07 → HO.S3 06-10 19:33
PROVIDERS: Hospitalist; Internal Medicine; Internal Medicine Cardiovascular Disease; Physician Assistant Medical; Admitting Provider Nurse Practitioner Family; Emergency Provider Emergency Medicine Emergency Medical Services; PCP Internal Medicine; Visit Provider Student in an Organized Health Care Education/Training Program
DX: N10 Acute pyelonephritis (principal); Q79.0 Congenital diaphragmatic hernia; Z68.43 Body mass index [BMI] 50.0-59.9, adult; R79.1 Abnormal coagulation profile; I48.91 Unspecified atrial fibrillation; G40.909 Epilepsy, unspecified, not intractable, without status epilepticus; K21.9 Gastro-esophageal reflux disease without esophagitis; I48.0 Paroxysmal atrial fibrillation; R19.7 Diarrhea, unspecified; W19.XXXA Unspecified fall, initial encounter; F41.1 Generalized anxiety disorder; K76.0 Fatty (change of) liver, not elsewhere classified; E66.01 Morbid (severe) obesity due to excess calories; M75.91 Shoulder lesion, unspecified, right shoulder; Z71.3 Dietary counseling and surveillance; K57.30 Diverticulosis of large intestine without perforation or abscess without bleeding; D11.0 Benign neoplasm of parotid gland; R31.9 Hematuria, unspecified; Z87.891 Personal history of nicotine dependence; Z79.01 Long term (current) use of anticoagulants; Z79.899 Other long term (current) drug therapy
CPT/HCPCS: 36415; 70450; 71260; 72125; 73030; 74177; 80053; 81001; 83605; 83735; 85014; 85018; 85025; 85027; 85384; 85610; 86850; 86900; 86901; 87040; 87086; 87493; 87507; 93005; 97161; 99285; J0696; J1171; J2405; J3430; J7120; Q9967

== ENCOUNTER → 2025-06-06 16:33 | Outpatient (BNV) | payer OTHER, SELFPAY | PROVIDERS: Emergency Provider Emergency Medicine Emergency Medical Services; PCP Internal Medicine; Visit Provider Radiology Diagnostic Radiology | DX: K57.90 Diverticulosis of intestine, part unspecified, without perforation or abscess without bleeding (principal); K44.9 Diaphragmatic hernia without obstruction or gangrene; K76.0 Fatty (change of) liver, not elsewhere classified; Z04.3 Encounter for examination and observation following other accident; S09.90XA Unspecified injury of head, initial encounter; K11.9 Disease of salivary gland, unspecified; W06.XXXA Fall from bed, initial encounter | CPT/HCPCS: 70450; 71260; 72125; 74177 ==

== ENCOUNTER 2025-06-06 22:11 | Outpatient (BNV) | payer OTHER, SELFPAY | END 2025-06-13 09:40 | PROVIDERS: Admitting Provider Nurse Practitioner Family; Emergency Provider Emergency Medicine Emergency Medical Services; PCP Internal Medicine; Visit Provider Radiology Diagnostic Radiology | DX: M19.011 Primary osteoarthritis, right shoulder (principal) | CPT/HCPCS: 73030 ==

== ENCOUNTER 2025-06-06 22:11 | Outpatient (BNV) | payer OTHER, SELFPAY | END 2025-06-08 08:56 | PROVIDERS: Admitting Provider Nurse Practitioner Family; Emergency Provider Emergency Medicine Emergency Medical Services; PCP Internal Medicine; Visit Provider Internal Medicine Cardiovascular Disease | DX: R42 Dizziness and giddiness (principal) | CPT/HCPCS: 93010 ==

== ENCOUNTER 2025-06-06 22:11 | Outpatient (BNV) | payer OTHER, SELFPAY | END 2025-06-07 06:35 | PROVIDERS: Admitting Provider Nurse Practitioner Family; Emergency Provider Emergency Medicine Emergency Medical Services; PCP Internal Medicine; Visit Provider Radiology Diagnostic Radiology | DX: M19.011 Primary osteoarthritis, right shoulder (principal) | CPT/HCPCS: 73030 ==

== ENCOUNTER → 2025-06-06 22:11 | Outpatient (BNV) | payer OTHER, SELFPAY | PROVIDERS: Admitting Provider Nurse Practitioner Family; Emergency Provider Emergency Medicine Emergency Medical Services; PCP Internal Medicine; Visit Provider Internal Medicine Cardiovascular Disease | DX: R79.1 Abnormal coagulation profile (principal) | CPT/HCPCS: 99233 ==

== ENCOUNTER → 2025-06-06 22:11 | Outpatient (BNV) | payer OTHER, SELFPAY | PROVIDERS: Admitting Provider Nurse Practitioner Family; Emergency Provider Emergency Medicine Emergency Medical Services; PCP Internal Medicine; Visit Provider Psychiatry & Neurology Neurology | DX: Z86.69 Personal history of other diseases of the nervous system and sense organs (principal) | CPT/HCPCS: 99221 ==

== ENCOUNTER → 2025-06-06 22:11 | Outpatient (BNV) | payer OTHER, SELFPAY | PROVIDERS: Admitting Provider Nurse Practitioner Family; Emergency Provider Emergency Medicine Emergency Medical Services; PCP Internal Medicine; Visit Provider Nurse Practitioner Family | DX: I48.91 Unspecified atrial fibrillation (principal); R79.1 Abnormal coagulation profile; R19.7 Diarrhea, unspecified; Z86.69 Personal history of other diseases of the nervous system and sense organs; N10 Acute pyelonephritis | CPT/HCPCS: 99223; 99232; 99499 ==

== ENCOUNTER 2025-08-02 14:30 | Outpatient (AMB) | payer OTHER, SELFPAY ==
--- NOTE | 2025-08-02 14:32 | A.OFFVIS_ITS ---
Intake Visit Reasons: Elevated INR, s/p fall, ER consult Allergies morphine Allergy (Unknown, Verified 06/06/25 16:32) rash Motrin Allergy (Unknown, Uncoded 04/14/23 15:45) stomach upset Medication List - Last Reconciled 08/02/25 by Nguyen Jimenez MD apixaban (Eliquis) 5 mg PO BID lidocaine 4% (Lidocaine Pain Relief) 1 patch See Protocol transdermal DAILY metoprolol succinate ER 50 mg PO DAILY pantoprazole (Protonix) 40 mg PO DAILY 5 days phenytoin sodium extended (Dilantin Extended) 100 mg PO TID sertraline 50 mg PO DAILY HPI Comments Details: this is a 65-year-old woman with a history of epilepsy since childhood. Her seizures have been controlled on Dilantin 100 mg 3 times a day all of her life with no side effects. A year or 2 ago she had gone off the medicine and apparently had a seizure 7 months ago and is now back on the Dilantin. She also has a history of atrial fibrillation and underwent a procedure which I think may have been an ablation and is currently on Eliquis. It is unclear how long the Eliquis would need to be continued because of possible interaction between the phenytoin and the Eliquis reducing they effectiveness of they anticoagulant. If she needs to continue it long-term, it would be better to switch her to an a lternative drug such as levetiracetam 500 mg b.i.d. and increased as tolerated. She does have a prescription for the levetiracetam but did not started. She is currently taking her phenytoin 100 mg t.i.d.. A granddaughter will check with the package dyer regarding the long-term use of Eliquis and if that is what is planned then I would encourage her to switch over to the levetiracetam. She has not had any evaluation in many decades so we will also book her for an EEG. [facility] Medical History (Updated 06/21/25 @ 00:02 by Bharat Greenwood) Urinary tract infection History of epilepsy Nicotine dependence History of stroke Gastritis GERD (gastroesophageal reflux disease) Morbid obesity Seizure disorder Surgical History History of cholecystectomy History of hernia surgery History of tubal ligation Social History Household Members: Family Housing: Apartment Do you presently have visiting nurse or other home services: Yes Alcohol intake: never Patient Tobacco Use Status: Former Tobacco user Cigarette Packs Per Day: 0.5 Years Smoked: 25 +/- Advance Directives Date on File: 03/17/23 service: No Review of Systems Card Reports irregular heart rhythm and Reports palpitations Musc Reports abnormal gait Neuro Reports abnormal gait and Reports convulsions Endo Reports palpitations Physical Exam Neuro Other: ?Mini Mental Status Exam Level of Consciousness:?Alert.? Orientation:?Knows correct year, month, date, day and season.?Knows correct city, county and state. Knows correct location and floor.? Registration:?Able to register 3 objects.? Attention:?Serial 7's performed accurately.? Recall:?Able to recall 3 out of 3 objects.? Language:?Normal spontaneous speech, fluency, repetition, naming, comprehension, reading, and writing.? Total Score:?30/30.? Neurological Abnormal neurological findings:??Walks with a walker. Morbidly obese. ? Mental Status:?Alert and oriented X 3.?Normal attention, orientation, memory, and affect.? Cranial Nerves:?Pupils are equal, round and reactive to light. Fundoscopy shows normal disc bilaterally. External ocular muscles are intact. Visual driver are full, no ptosis. Face is symmetrical, no facial weakness or droop. Facial sensations are normal. Tongue protrudes in midline. Palate elevates symmetrically. Shoulder shrugging is normal.? Motor Examination:?Normal muscle tone, bulk and strength.?No atrophy or fasciculations.?No drift of the extended upper extremities.?Deep tendon reflexes are 2+.?Plantars are flexor.? Motor Strength:? Proximal Muscles (out of 5):?5 Distal Muscles (out of 5):?5 Neck Flexors (out of 5):?5 Neck Extensors (out of 5):?5 Deltoid (out of 5):?5 Biceps (out of 5):?5 Triceps (out of 5):?5 Serratus Anterior (out of 5):?5 Wrist Extensors (out of 5):?5 APB (out of 5):?5 Finger Spread (out of 5):?5 Ileopsoas (out of 5):?5 Quadriceps (out of 5):?5 Hamstrings (out of 5):?5 Tibialis Anterior (out of 5):?5 Peronei (out of 5):?5 EDB (out of 5):?5 Gastrocnemius (out of 5):?5 Straight Leg Raising:?90 degrees.? Sensory Exam:?Normal light touch, temperature, pinprick, vibration and joint-position sensations.?Rhomberg sign is absent.? Coordination:?No ataxia,?no titubation,?[id number], [id number] test, and rapid alternating movements were normal.? Gait Exam:?Walks with a waddle using a walker. ? Cerebellar Signs:?[id number] and [id number] is normal.?No dysdiadochokinesia.? Extrapyramidal System:?No tremor or?rigidity, normal facial expressions.?No bradykinesia. No bradyphrenia. Normal arm swing and posture. No propulsion or retropulsion.? Speech:?Normal,?no dysphasia or dysarthria.? General Examination GENERAL APPEARANCE:??Morbid obesity, in no acute distress?.? HEAD:??normocephalic,?atraumatic.? EYES:??sclera non-icteric,?conjunctiva clear.? EARS:??auditory canal clear,?tympanic membrane intact, clear.? NOSE:??no lesions.? ORAL CAVITY:??gums normal,?mucosa moist,?no lesions.? THROAT:??clear.? NECK/THYROID:??no cervical lymphadenopathy,?thyroid normal,?neck supple, full range of motion,?no carotid bruit.? SKIN:??no rashes,?no significant birthmarks.? HEART:??S1, S2 normal,?no murmurs?,?S1, S2 normal,?no murmurs.? LUNGS:??clear anteriorly and posteriorly?,?clear anteriorly and pos teriorly.? CHEST:??no gross rib deformity,?clear to auscultation.? BACK:??normal exam of spine.? MUSCULOSKELETAL:??normal.? EXTREMITIES:??no edema?,?no edema.? PERIPHERAL PULSES:??normal.? PSYCH:??alert, oriented,?cognitive function intact,?cooperative with exam?,?alert, oriented,?cognitive function intact,?cooperative with exam.? Assessment & Plan Assessment & Plan (1) Seizure disorder: Code(s): G40.909 - Epilepsy, unspecified, not intractable, without status epilepticus Category: Medical (2) Afib: Code(s): I48.91 - Unspecified atrial fibrillation Category: Medical Plan EEG. If cardiology intends her to be on terminal operations supervisor anticoagulation, then she can be switched from Dilantin to Keppra 500mg bid and then 1gm bid Orders: Orders EEG Routine Today G40.909 - Epilepsy, unspecified, not intractable, without status epilepticus Medications: Changed From phenytoin sodium extended (Dilantin Extended) 100 mg PO TID To phenytoin sodium extended (Dilantin Extended) 100 mg PO TID 90 caps 3RF 30 days Coding Level of Care Code New Pt Level 5 (92381) Diagnoses Seizure disorder G40.909 Afib I48.91
== END 2025-08-02 14:57 | disposition home or self-care (01) ==
LOC: HO.HSM 14:30
PROVIDERS: PCP Internal Medicine; Visit Provider Psychiatry & Neurology Neurology
DX: G40.909 Epilepsy, unspecified, not intractable, without status epilepticus (principal); I48.91 Unspecified atrial fibrillation
CPT/HCPCS: 99215

== ENCOUNTER → 2025-08-02 14:30 | Outpatient (BNVA) | payer OTHER, SELFPAY | PROVIDERS: PCP Internal Medicine; Visit Provider Psychiatry & Neurology Neurology | DX: G40.909 Epilepsy, unspecified, not intractable, without status epilepticus (principal); I48.91 Unspecified atrial fibrillation | CPT/HCPCS: 99212 ==